=== PATIENT | female | born 1950 | race African-American/Black ===

== ENCOUNTER → 2016-05-15 | Outpatient (CLI) | payer MEDICARE, MEDICAID | LOC: WI 14:14 | PROVIDERS: ATTEND Internal Medicine | DX: Z12.31 Encounter for screening mammogram for malignant neoplasm of breast (principal) | CPT/HCPCS: 77067; G0202 ==

== ENCOUNTER 2017-04-12 12:20 | Emergency (ER) | payer MEDICARE, MEDICAID ==
--- NOTE | 2017-04-12 15:12 | ER Document Report ---
ED Medical Screen (RME) - General Chief Complaint: Pain All Over Stated Complaint: BODY PAIN Time Seen by Provider: 04/12/17 14:56 Mode of Arrival: Wheelchair Information source: Patient Notes: Patient is a 66 year old female with a history of CHF and multiple strokes ( affecting right side) is presenting to the emergency department complaining of body aches all over and a chronic dry cough. Patient states her body aches affect her legs, back, arm, legs, and neck. Son who is at bedside states that the patient is also more swollen than normal. Patient denies congestion or fevers. Patient's PCP is Dr. Langston. TRAVEL OUTSIDE OF THE [place] IN LAST 30 DAYS: No - Related Data Allergies/Adverse Reactions: celecoxib [From Celebrex] Allergy (Unknown, Verified 01/25/16 18:17) ibuprofen [From Motrin] Allergy (Unknown, Verified 01/25/16 18:17) Past Medical History - Social History Chew tobacco use (# tins/day): No Frequency of alcohol use: None Drug Abuse: None - Past Medical History Cardiac Medical History: Reports: Hx Congestive Heart Failure, Hx Hypercholesterolemia, Hx Hypertension, Hx Heart Murmur Denies: Hx Atrial Fibrillation, Hx Coronary Artery Disease, Hx Heart Attack Pulmonary Medical History: Denies: Hx Asthma, Hx Bronchitis, Hx COPD, Hx Pneumonia, Hx Tuberculosis Neurological Medical History: Reports: Hx Cerebrovascular Accident - mutliple, PT STATES SHE HAS HAD 25 RODRÍGUEZ.. Denies: Hx Seizures Renal/ Medical History: Denies: Hx End Stage Renal Disease, Hx Kidney Stones, Hx Peritoneal Dialysis GI Medical History: Reports: Hx Gastroesophageal Reflux Disease. Denies: Hx Hiatal Hernia, Hx Pancreatitis, Hx Ulcer Musculoskeltal Medical History: Reports Hx Arthritis, Reports Hx Musculoskeletal Deformity Psychiatric Medical History: Reports: Hx Anxiety, Hx Dementia - Multi-infarct, Hx Depression Denies: Hx Bipolar Disorder, Hx Schizophrenia Past Surgical History: Reports: Hx Tubal Ligation. Denies: Hx Appendectomy, Hx Bowel Surgery, Hx Section, Hx Cholecystectomy, Hx Hysterectomy, Hx Mastectomy, Hx Tonsillectomy - Immunizations Immunizations up to date: Yes Hx Diphtheria, Pertussis, Tetanus Vaccination: Yes - STATES SHE HAS PNEUMONIA VACCINE IN 2013. Physical Exam - Vital signs Vitals: Temp Pulse Resp BP Pulse Ox 97.6 F 55 L 16 101/69 95 04/12/17 13:06 04/12/17 13:06 04/12/17 13:06 04/12/17 13:06 04/12/17 13:06 - Notes Notes: GENERAL: Alert, weak appearing.. No acute distress. LUNGS: Clear to auscultation bilaterally, no wheezes, rales, or rhonchi. No respiratory distress. HEART: Regular rate and rhythm. No murmurs, gallops, or rubs. ABDOMEN: Soft, non-tender. Non-distended. Bowel sounds present in all 4 quadrants.GENERAL: Alert, interacts well. No acute distress. HEAD: Normocephalic, atraumatic. EYES: Appear normal. Pupils equal, round, and reactive to light. ENT: Dry mucus membranes, tongue midline. NECK: Full range of motion. Supple. Trachea midline. LUNGS: Clear to auscultation bilaterally, no wheezes, rales, or rhonchi. No respiratory distress. HEART: Regular rate and rhythm. No murmurs, gallops, or rubs. ABDOMEN: Soft, non-tender. Non-distended. Normal bowel sounds. EXTREMITIES: Stasis dermatits BLE. 1+ pitting edema. NEUROLOGICAL: Alert and oriented x3. Normal speech. PSYCH: Normal affect, normal mood. SKIN: Warm, dry, normal turgor. No rashes or lesions noted. Course - Vital Signs Vital signs: Temp Pulse Resp BP Pulse Ox 97.6 F 55 L 17 141/102 H 100 04/12/17 13:06 04/12/17 13:06 04/12/17 19:41 04/12/17 19:41 04/12/17 19:41 - Laboratory Result Diagrams: 04/12/17 16:56 04/12/17 16:56 Laboratory results interpreted by me: 04/12/17 04/12/17 16:56 16:56 RDW 15.4 H Creatinine 1.27 H Est GFR ( Amer) 51 L Est GFR (Non-Af Amer) 42 L Glucose 133 H Calcium 10.4 H Total Protein 8.4 H Doctor's Discharge - Discharge Clinical Impression: Myalgia, Hypertension Condition: Stable Disposition: HOME, SELF-CARE Additional Instructions: Please take acetaminophen up to 1000 mg every 6 hours as needed for pain. You may use the Tessalon Perles for cough. If you have no improvement in your symptoms by Sunday please see your primary care physician. Prescriptions: Benzonatate [Tessalon Perles 100 mg Capsule] 100 mg PO Q8HP PRN #40 capsule PRN Reason: Forms: Elevated Blood Pressure Referrals: JUDY GONGORA MD [Primary Care Provider] - Follow up in 3-5 days
--- NOTE | 2017-04-12 16:09 | RADIOLOGY REPORT (SQ) ---
EXAM DESCRIPTION: CHEST SINGLE VIEW COMPLETED DATE/TIME: 04/12/2017 4:02 pm REASON FOR STUDY: CHF hx of non-productive cough COMPARISON: 12/13/2015. EXAM PARAMETERS: NUMBER OF VIEWS: One view. TECHNIQUE: Single frontal radiographic view of the chest acquired. RADIATION DOSE: NA LIMITATIONS: None. FINDINGS: LUNGS AND PLEURA: No opacities, masses or pneumothorax. No pleural effusion. MEDIASTINUM AND HILAR STRUCTURES: No masses. Contour normal. HEART AND VASCULAR STRUCTURES: Heart upper limits of normal in size. Normal vasculature. BONES: No acute findings. HARDWARE: None in the chest. OTHER: No other significant finding. IMPRESSION: NO ACUTE RADIOGRAPHIC FINDING IN THE CHEST. TECHNICAL DOCUMENTATION: JOB ID: [id number] [employer]- All Rights Reserved
[2017-04-12 17:38] LABS: PROTHROMBIN TIME 12.8 SEC (11.4-15.4)
[2017-04-12 17:45] LABS: ABSOLUTE BASOPHILS # (AUTO) 0.1 10^3/uL (0.0-0.2); ABSOLUTE EOSINOPHILS # (AUTO) 0.1 10^3/uL (0.0-0.6); ABSOLUTE LYMPHOCYTES (AUTO) 2.2 10^3/uL (0.5-4.7); ABSOLUTE MONOCYTES (AUTO) 0.5 10^3/uL (0.1-1.4); ABSOLUTE NEUT (AUTO) 5.4 10^3/uL (1.7-8.2); BASOPHILS % (AUTO) 0.7 % (0-2); EOSINOPHILS % (AUTO) 1.1 % (0-6); HEMATOCRIT 43.1 % (36.0-47.0); HEMOGLOBIN 14.1 g/dL (12.0-15.5); LYMPHOCYTES % (AUTO) 26.5 % (13-45); MEAN CORPUSCULAR HEMOGLOBIN 30.2 pg (27.0-33.4); MEAN CORPUSCULAR HGB CONC 32.7 g/dL (32.0-36.0); MEAN CORPUSCULAR VOLUME 92 fl (80-97); PLATELET COUNT 253 10^3/uL (150-450); RED BLOOD COUNT 4.67 10^6/uL (3.72-5.28); RED CELL DISTRIBUTION WIDTH 15.4 % (11.5-14.0); SEGMENTED NEUTROPHILS % (AUTO) 65.7 % (42-78); TOTAL CELLS COUNTED % (AUTO) 100 %; WHITE BLOOD COUNT 8.2 10^3/uL (4.0-10.5)
[2017-04-12 18:16] LABS: ALANINE AMINOTRANSFERASE 18 U/L (9-52); ALBUMIN 4.7 g/dL (3.5-5.0); ALKALINE PHOSPHATASE 66 U/L (38-126); ANION GAP 12 (5-19); ASPARTATE AMINO TRANSFERASE 35 U/L (14-36); BILIRUBIN,DIRECT 0.4 mg/dL (0.0-0.4); BILIRUBIN,TOTAL 0.5 mg/dL (0.2-1.3); BLOOD UREA NITROGEN 16 mg/dL (7-20); CALCIUM 10.4 mg/dL (8.4-10.2); CARBON DIOXIDE 24 mmol/L (22-30); CHLORIDE 106 mmol/L (98-107); GLUCOSE 133 mg/dL (75-110); MAGNESIUM 2.1 mg/dL (1.6-2.3); SODIUM 141.9 mmol/L (137-145); TOTAL PROTEIN 8.4 g/dL (6.3-8.2)
--- NOTE | 2017-04-12 19:45 | ER Document Report ---
ED General - General Mode of Arrival: Wheelchair Information source: Patient TRAVEL OUTSIDE OF THE [place] IN LAST 30 DAYS: No - HPI Patient complains to provider of: Generalized Body ache Onset: This morning - today Associated symptoms: Other - see notes above <MARCUS PRAKASH - Last Filed: 04/13/17 04:10> <EREN HUNG - Last Filed: 04/13/17 04:26> - General Chief Complaint: Pain All Over Stated Complaint: BODY PAIN Time Seen by Provider: 04/12/17 14:56 Notes: 66 year old female with history of hyperlipidemia, CVA, and CHF presents to the ED via EMS complaining of generalized body aches that started today. Patient additionally complains of a non-productive cough that has been present for 1 month and 2-3 episodes of diarrhea a day for the past 3 days which is improving , but still present. Patient denies fever, chest pain, shortness of breath, or vomiting. Patient denies any blood in her stool. Patient also reports feeling more swollen than usual. Patient is not on Lasix. (MARCUS PRAKASH) - Related Data Allergies/Adverse Reactions: celecoxib [From Celebrex] Allergy (Unknown, Verified 01/25/16 18:17) ibuprofen [From Motrin] Allergy (Unknown, Verified 01/25/16 18:17) Past Medical History - General Information source: Patient - Social History Smoking Status: Never Smoker Chew tobacco use (# tins/day): No Frequency of alcohol use: None Drug Abuse: None Family History: Arthritis, CVA, DM, Hyperlipidemia, Hypertension Patient has suicidal ideation: No Patient has homicidal ideation: No - Past Medical History Cardiac Medical History: Reports: Hx Congestive Heart Failure, Hx Hypercholesterolemia, Hx Hypertension, Hx Heart Murmur Denies: Hx Atrial Fibrillation, Hx Coronary Artery Disease, Hx Heart Attack Pulmonary Medical History: Denies: Hx Asthma, Hx Bronchitis, Hx COPD, Hx Pneumonia, Hx Tuberculosis Neurological Medical History: Reports: Hx Cerebrovascular Accident - mutliple, PT STATES SHE HAS HAD 25 RODRÍGUEZ.. Denies: Hx Seizures Renal/ Medical History: Denies: Hx End Stage Renal Disease, Hx Kidney Stones, Hx Peritoneal Dialysis GI Medical History: Reports: Hx Gastroesophageal Reflux Disease. Denies: Hx Hiatal Hernia, Hx Pancreatitis, Hx Ulcer Musculoskeltal Medical History: Reports Hx Arthritis, Reports Hx Musculoskeletal Deformity Psychiatric Medical History: Reports: Hx Anxiety, Hx Dementia - Multi-infarct, Hx Depression Denies: Hx Bipolar Disorder, Hx Schizophrenia Past Surgical History: Reports: Hx Tubal Ligation. Denies: Hx Appendectomy, Hx Bowel Surgery, Hx Section, Hx Cholecystectomy, Hx Hysterectomy, Hx Mastectomy, Hx Tonsillectomy - Immunizations Immunizations up to date: Yes Hx Diphtheria, Pertussis, Tetanus Vaccination: Yes - STATES SHE HAS PNEUMONIA VACCINE IN 2013. Hx Pneumococcal Vaccination: 11/17/09 <MARCUS PRAKASH - Last Filed: 04/13/17 04:10> Review of Systems - Review of Systems Constitutional: See HPI, Malaise. denies: Fever EENT: No symptoms reported Cardiovascular: No symptoms reported. denies: Chest pain Respiratory: See HPI, Cough. denies: Short of breath, Sputum Gastrointestinal: See HPI, Diarrhea. denies: Vomiting, Blood streaked bowels, Rectal bleeding Genitourinary: No symptoms reported Female Genitourinary: No symptoms reported Musculoskeletal: No symptoms reported Skin: No symptoms reported Hematologic/Lymphatic: No symptoms reported Neurological/Psychological: No symptoms reported -: Yes All other systems reviewed and negative <MARCUS PRAKASH - Last Filed: 04/13/17 04:10> Physical Exam <MARCUS PRAKASH - Last Filed: 04/13/17 04:10> <EREN HUNG - Last Filed: 04/13/17 04:26> - Vital signs Vitals: Temp Pulse Resp BP Pulse Ox 97.6 F 55 L 16 101/69 95 04/12/17 13:06 04/12/17 13:06 04/12/17 13:06 04/12/17 13:06 04/12/17 13:06 - Notes Notes: GENERAL: Alert, interacts well. No acute distress. HEAD: Normocephalic, atraumatic. Balding. EYES: Pupils equal, round, and reactive to light. Extraocular movements intact. ENT: Oral mucosa moist, tongue midline. NECK: Full range of motion. Supple. Trachea midline. LUNGS: Clear to auscultation bilaterally, no wheezes, rales, or rhonchi. No respiratory distress. HEART: Regular rate and rhythm. No murmurs, gallops, or rubs. ABDOMEN: Soft, non-tender. Non-distended. Bowel sounds present in all 4 quadrants. EXTREMITIES: Moves all 4 extremities spontaneously. No edema, radial and dorsalis pedis pulses 2/4 bilaterally. No cyanosis. Contracture of the right hand. FROM of left hand. NEUROLOGICAL: Alert and oriented x3. Normal speech. PSYCH: Normal affect, normal mood. SKIN: Warm, dry, normal turgor. No rashes or lesions noted. (MARCUS PRAKASH) Course - Laboratory Result Diagrams: 04/12/17 16:56 04/12/17 16:56 <MARCUS PRAKASH - Last Filed: 04/13/17 04:10> - Laboratory Result Diagrams: 04/12/17 16:56 04/12/17 16:56 <EREN HUNG - Last Filed: 04/13/17 04:26> - Re-evaluation Re-evalutation: 04/12/17 20:02 CBC unremarkable, coags negative, CMP shows slightly bumped creatinine at 1.27, proBNP normal, chest x-ray unremarkable, no evidence of CHF. EKG is nonischemic. At present I see no evidence of infection, source of infection or explanation for why the patient has aches all over her body. Patient is recommended to do a trial of Advil and Tylenol, take Tessalon Perles for her dry nonproductive cough that has been going on for over a month without fever or change on chest x -ray. Discharged to home, will follow up with primary care physician Dr. Gongora on Sunday if no improvement. 04/12/17 20:04 After rechecking the allergy list patient will not be given ibuprofen as she is allergic to it. (EREN HUNG) - Vital Signs Vital signs: Temp Pulse Resp BP Pulse Ox 98.4 F 55 L 14 136/94 H 95 04/12/17 21:00 04/12/17 13:06 04/12/17 21:03 04/12/17 21:03 04/12/17 21:03 - Laboratory Laboratory results interpreted by me: 04/12/17 04/12/17 16:56 16:56 RDW 15.4 H Creatinine 1.27 H Est GFR ( Amer) 51 L Est GFR (Non-Af Amer) 42 L Glucose 133 H Calcium 10.4 H Total Protein 8.4 H Discharge <MARCUS PRAKASH - Last Filed: 04/13/17 04:10> <EREN HUNG - Last Filed: 04/13/17 04:26> - Discharge Clinical Impression: Myalgia Hypertension Qualifiers: Hypertension type: essential hypertension Qualified Code(s): I10 - Essential ( primary) hypertension Condition: Stable Disposition: HOME, SELF-CARE Additional Instructions: Please take acetaminophen up to 1000 mg every 6 hours as needed for pain. You may use the Tessalon Perles for cough. If you have no improvement in your symptoms by Sunday please see your primary care physician. Prescriptions: Benzonatate [Tessalon Perles 100 mg Capsule] 100 mg PO Q8HP PRN #40 capsule PRN Reason: Forms: Elevated Blood Pressure Referrals: JUDY GONGORA MD [Primary Care Provider] - Follow up in 3-5 days Scribe Attestation: 04/13/17 04:26 I personally performed the services described in the documentation, reviewed and edited the documentation which was dictated to the scribe in my presence, and it accurately records my words and actions. (EREN HUNG) Scribe Documentation - Scribe Written by Danielle:: Danielle Downing, 04/12/2017 194 acting as scribe for :: Pernell <MARCUS PRAKASH - Last Filed: 04/13/17 04:10>
[2017-04-12] MEDS ORDERED: ACETAMINOPHEN 325 MG TABLET PO ONE (20:03)
[2017-04-12] MEDS ORDERED: BENZONATATE 100 MG CAPSULE PO ONE (20:03)
[2017-04-12 21:16] VITALS: BP 136/94
--- NOTE | 2017-04-13 07:40 | EKG REPORT ---
SEVERITY:- ABNORMAL ECG - SINUS RHYTHM INCOMPLETE LEFT BUNDLE BRANCH BLOCK PROBABLE LEFT VENTRICULAR HYPERTROPHY CONSIDER ANTERIOR INFARCT : Confirmed by: Irene Kowalski MD 13-Apr-2017 07:38:38
== END 2017-04-12 21:08 | disposition home or self-care (01) ==
LOC: ER 12:20
DX: M79.1 Myalgia (principal); I10 Essential (primary) hypertension; E78.5 Hyperlipidemia, unspecified; I50.9 Heart failure, unspecified; R05 Cough; Z86.73 Personal history of transient ischemic attack (TIA), and cerebral infarction without residual deficits
CPT/HCPCS: 93005; 99284; 36415; 83735; 85025; 85610; 80053; 83880; 71045; 93010; A9270 ×2

== ENCOUNTER → 2017-05-16 | Outpatient (CLI) | payer MEDICARE, MEDICAID ==
--- NOTE | 2017-05-21 07:59 | WOMENS IMAGING REPORT ---
EXAM DESCRIPTION: 3D SCREENING MAMMO BILAT COMPLETED DATE/TIME: 05/16/2017 11:16 am REASON FOR STUDY: ROUTINE SCREENING;Z12.31 Z12.31 ENCNTR SCREEN MAMMOGRAM FOR MALIGNANT NEOPLASM OF LISA COMPARISON: 05/15/2016 and 05/27/2009 TECHNIQUE: Standard craniocaudal and mediolateral oblique views of each breast recorded using digita l acquisition and breast tomosynthesis. LIMITATIONS: Poor positioning as patient is in wheelchair. FINDINGS: Findings present which are benign by mammographic criteria. No suspicious masses, calcifi cations or architectural distortion. Read with the assistance of CAD. .[facility] - R2 Cenova Version 1.3 .[facility] - R2 Cenova Version 1.3 .[facility] - R2 Cenova Version 2.4 .[facility] - R2 Cenova Version 2.4 .[facility] - R2 Load Tester Version 9.2 Benign mammographic findings may include one or more of the following: Smooth masses, popcorn/rim/co arse calcifications, asymmetries, post-procedure changes, and lesions with long-standing stability. IMPRESSION: BENIGN MAMMOGRAPHIC FINDINGS. BIRADS 2 BREAST DENSITY: a. The breasts are almost entirely fatty. BIRAD: 2 BENIGN FINDING(S) RECOMMENDATION: RECOMMENDATION: ROUTINE SCREENING COMMENT: The patient has been notified of the results by letter per [place] requirements. Additional no tification policies are in place for contacting patient with suspicious or incomplete findings. Quality ID #[id number]: The [employer] recommends an annual screening mammogram for women aged 40 years or over. This facility utilizes a reminder system to ensure that all patients receive reminder letters, and/or direct phone calls for appointments. This includes reminders for routine scr eening mammograms, diagnostic mammograms, or other Breast Imaging Interventions when appropriate. Th is patient will be placed in the appropriate reminder system. The [employer] (ACR) has developed recommendations for screening MRI of the breast s in certain patient populations, to be used in conjunction with mammography. Breast MRI surveillanc e may be appropriate for women with more than 20% lifetime risk of developing breast cancer as deter mined by genetic testing, significant family history of the disease, or history of mantle radiation f or Hodgkins Disease. ACR Practice Guidelines 2008. DBT Technology DBT is a type of tomographic mammography. With conventional mammography, overlapping breast tissue ma y make lesions difficult to detect, even with good compression. DBT uses an x-ray tube that rotates a round the breast, taking images at different angles. These images are then combined to create thin sl ices of the breast that the radiologist can view as a 3D reconstruction. The [employer] unit can perform full-field digital mammograms (2D imaging); or DBT (3D imaging); or both, in a combination mode that quickly performs both the mammogram and the tomosynthesis scan while the breast is still compressed. PQRS 6045F: Fluoroscopic imaging is not utilized for breast tomosynthesis. TECHNICAL DOCUMENTATION: FINDING NUMBER: (1) ASSESSMENT: (1) JOB ID: [id number] [employer]- All Rights Reserved Reading location - IP/workstation name: [email or web address]
== END ==
LOC: WI 10:40
PROVIDERS: ATTEND Internal Medicine
DX: Z12.31 Encounter for screening mammogram for malignant neoplasm of breast (principal)
CPT/HCPCS: 77063; 77067

== ENCOUNTER 2017-12-06 10:09 | Emergency (ER) | payer MEDICARE, MEDICAID ==
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
--- NOTE | 2017-12-06 11:52 | RADIOLOGY REPORT (SQ) ---
EXAM DESCRIPTION: FOOT LEFT COMPLETE COMPLETED DATE/TIME: 12/06/2017 11:21 am REASON FOR STUDY: Fell and injured left foot and ankle COMPARISON: None. NUMBER OF VIEWS: Three views. TECHNIQUE: AP, lateral and oblique radiographic images acquired of the left foot. LIMITATIONS: Limited examination due to the limited range of motion. FINDINGS: MINERALIZATION: Osteopenia. BONES: Fractures involving the distal tibia and fibula are again identified. Calcaneal spurs. JOINTS: Degenerative changes and hallux valgus deformity at the first metatarsal-phalangeal joint. SOFT TISSUES: Marked soft tissue swelling. No foreign body. OTHER: No other significant finding. IMPRESSION: 1. Soft tissue swelling. 2. Fractures involving the distal tibia and fibula are again identified. TECHNICAL DOCUMENTATION: JOB ID: [id number] [email or web address]- All Rights Reserved Reading location - IP/workstation name: [email or web address]
--- NOTE | 2017-12-06 11:59 | RADIOLOGY REPORT (SQ) ---
EXAM DESCRIPTION: ANKLE LEFT COMPLETE COMPLETED DATE/TIME: 12/06/2017 11:21 am REASON FOR STUDY: pain/ fall COMPARISON: None. NUMBER OF VIEWS: Three views. TECHNIQUE: AP, lateral, and oblique radiographic images acquired of the left ankle. LIMITATIONS: None. FINDINGS: MINERALIZATION: Normal. BONES: Nondisplaced slightly comminuted fracture involving the medial malleolus. Slight to mildly d isplaced intra-articular fracture involving the anterior distal tibia. Minimally displaced fracture involving the distal fibula. JOINTS: Joint effusions. SOFT TISSUES: Soft tissue swelling. No foreign body. OTHER: No other significant finding. IMPRESSION: 1. Minimally displaced distal fibula fracture. 2. Non-displaced medial malleolus fracture. Slight to midly displaced intra-articular fracture invol ving the anterior distal tibia. 3. Soft tissue swelling. COMMENT: 1. The results of this examination were discussed with emergency department provider on at 11:51 hours. TECHNICAL DOCUMENTATION: JOB ID: [id number] [employer]- All Rights Reserved Reading location - IP/workstation name: [email or web address]
[2017-12-06] MEDS ORDERED: OXYCODONE-ACETAMINOPHEN 5-325 MG TABLET PO ONE (12:34)
--- NOTE | 2017-12-06 12:56 | RADIOLOGY REPORT (SQ) ---
EXAM DESCRIPTION: CHEST SINGLE VIEW COMPLETED DATE/TIME: 12/06/2017 12:46 pm REASON FOR STUDY: copd COMPARISON: 04/12/2017 EXAM PARAMETERS: NUMBER OF VIEWS: One view. TECHNIQUE: Single frontal radiographic view of the chest acquired. RADIATION DOSE: NA LIMITATIONS: None. FINDINGS: LUNGS AND PLEURA: Low lung volumes limits the examination. No acute pulmonary consolidat ion. No pneumothorax or pleural effusion. MEDIASTINUM AND HILAR STRUCTURES: No masses. Contour normal. HEART AND VASCULAR STRUCTURES: Cardiomegaly and accentuation of the central pulmonary vasculature ma y be related to the limited degree of inspiration. BONES: No acute findings. HARDWARE: None in the chest. OTHER: No other significant finding. IMPRESSION: 1. Low lung volumes limits the examination. No acute pulmonary consolidation. 2. The cardiomediastinal structures are accentuated which may be related to the limited degree of ins piration. TECHNICAL DOCUMENTATION: JOB ID: [id number] [employer]- All Rights Reserved Reading location - IP/workstation name: [email or web address]
[2017-12-06] MEDS ORDERED: HYDROCODONE/ACETAMINOPHEN 5-325 MG (6 TAB/ER DISP) PO PRN (13:24)
[2017-12-06 17:50] VITALS: BP 111/67
== END 2017-12-06 17:49 | disposition home or self-care (01) ==
LOC: ER 10:09
PROC: 2W3RX1Z Immobilization of Left Lower Leg using Splint (ICD-10-PCS; principal; 2017-12-06)
DX: S82.55XA Nondisplaced fracture of medial malleolus of left tibia, initial encounter for closed fracture (principal); M25.572 Pain in left ankle and joints of left foot; M79.605 Pain in left leg; W01.0XXA Fall on same level from slipping, tripping and stumbling without subsequent striking against object, initial encounter; I10 Essential (primary) hypertension; Z86.73 Personal history of transient ischemic attack (TIA), and cerebral infarction without residual deficits
CPT/HCPCS: 99283; 73610; 71045; 73630; 29515; A9270 ×2

== ENCOUNTER 2017-12-07 21:11 | Inpatient (IN) | payer MEDICARE, MEDICAID ==
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
[2017-12-08] MEDS ORDERED: ALBUTEROL SULFATE 0.083% NEB 2.5 MG/3 ML AMPUL NEB ONE (02:00)
[2017-12-08] MEDS: HYDROCODONE/ACETAMINOPHEN 5-325 MG TABLET PO PRN ×4 (02:45→21:38)
[2017-12-08] MEDS: CLONIDINE HCL 0.2 MG TABLET PO SCH ×2 (09:18→17:49)
[2017-12-08] MEDS: LABETALOL HCL 200 MG TABLET PO SCH ×2 (09:19→17:49)
[2017-12-08] MEDS: ARIPIPRAZOLE 5 MG TABLET PO SCH (09:19)
[2017-12-08] MEDS: AMLODIPINE BESYLATE 10 MG TABLET PO SCH (09:20)
[2017-12-08] MEDS: HYDRALAZINE HCL 50 MG TABLET PO SCH ×3 (09:20→17:49)
[2017-12-08] MEDS: VALSARTAN 160 MG TABLET PO SCH (09:20)
[2017-12-08] MEDS: ESCITALOPRAM OXALATE 10 MG TABLET PO SCH (09:20)
[2017-12-08] MEDS: DOCUSATE SODIUM 100 MG CAPSULE PO SCH (09:21)
[2017-12-08] MEDS: CHLORTHALIDONE 25 MG TABLET PO SCH (09:25)
[2017-12-08] MEDS ORDERED: CLOPIDOGREL BISULFATE 75 MG TABLET PO SCH (10:00)
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
[2017-12-09] MEDS: HYDROCODONE/ACETAMINOPHEN 5-325 MG TABLET PO PRN ×4 (05:40→21:31)
[2017-12-09 06:14] LABS: ABSOLUTE EOSINOPHILS # (AUTO) 0.3 10^3/uL (0.0-0.6); ABSOLUTE LYMPHOCYTES (AUTO) 2.3 10^3/uL (0.5-4.7); ABSOLUTE MONOCYTES (AUTO) 0.6 10^3/uL (0.1-1.4); ABSOLUTE NEUT (AUTO) 2.5 10^3/uL (1.7-8.2); BASOPHILS % (AUTO) 0.3 % (0-2); EOSINOPHILS % (AUTO) 4.6 % (0-6); HEMATOCRIT 33.4 % (36.0-47.0); HEMOGLOBIN 10.9 g/dL (12.0-15.5); MEAN CORPUSCULAR HEMOGLOBIN 29.7 pg (27.0-33.4); MEAN CORPUSCULAR HGB CONC 32.6 g/dL (32.0-36.0); MEAN CORPUSCULAR VOLUME 91 fl (80-97); MONOCYTES % (AUTO) 9.7 % (3-13); PLATELET COUNT 182 10^3/uL (150-450); RED BLOOD COUNT 3.67 10^6/uL (3.72-5.28); RED CELL DISTRIBUTION WIDTH 14.5 % (11.5-14.0); SEGMENTED NEUTROPHILS % (AUTO) 44.4 % (42-78); TOTAL CELLS COUNTED % (AUTO) 100 %; WHITE BLOOD COUNT 5.7 10^3/uL (4.0-10.5)
[2017-12-09 06:26] LABS: INTERNATIONAL RATION (INR) 1.03
[2017-12-09 06:37] LABS: ANION GAP 8 (5-19); BLOOD UREA NITROGEN 38 mg/dL (7-20); CALCIUM 8.8 mg/dL (8.4-10.2); CARBON DIOXIDE 27 mmol/L (22-30); CHLORIDE 108 mmol/L (98-107); POTASSIUM 3.7 mmol/L (3.6-5.0); SODIUM 142.5 mmol/L (137-145)
[2017-12-09 06:54] LABS: GLUCOSE 102 mg/dL (75-110)
--- NOTE | 2017-12-09 08:23 | RADIOLOGY REPORT (SQ) ---
EXAM DESCRIPTION: CHEST SINGLE VIEW COMPLETED DATE/TIME: 12/09/2017 7:55 am REASON FOR STUDY: pre-op COMPARISON: 12/06/2017. EXAM PARAMETERS: NUMBER OF VIEWS: One view. TECHNIQUE: Single frontal radiographic view of the chest acquired. RADIATION DOSE: NA LIMITATIONS: None. FINDINGS: LUNGS AND PLEURA: No opacities, masses or pneumothorax. No pleural effusion. MEDIASTINUM AND HILAR STRUCTURES: No masses. Contour normal. HEART AND VASCULAR STRUCTURES: Heart normal in size. Normal vasculature. BONES: No acute findings. HARDWARE: None in the chest. OTHER: No other significant finding. IMPRESSION: NO ACUTE RADIOGRAPHIC FINDING IN THE CHEST. TECHNICAL DOCUMENTATION: JOB ID: [id number] [employer]- All Rights Reserved Reading location - IP/workstation name: [email or web address]
[2017-12-09] MEDS: ARIPIPRAZOLE 5 MG TABLET PO SCH (09:52)
[2017-12-09] MEDS: DOCUSATE SODIUM 100 MG CAPSULE PO SCH (09:52)
[2017-12-09] MEDS: VALSARTAN 160 MG TABLET PO SCH (09:52)
[2017-12-09] MEDS: ESCITALOPRAM OXALATE 10 MG TABLET PO SCH (09:53)
[2017-12-09] MEDS: AMLODIPINE BESYLATE 10 MG TABLET PO SCH (09:53)
[2017-12-09] MEDS: CHLORTHALIDONE 25 MG TABLET PO SCH (09:53)
[2017-12-09] MEDS: CLONIDINE HCL 0.2 MG TABLET PO SCH ×2 (09:53→17:34)
[2017-12-09] MEDS: LABETALOL HCL 200 MG TABLET PO SCH ×2 (09:53→21:14)
[2017-12-09] MEDS: HYDRALAZINE HCL 50 MG TABLET PO SCH ×3 (09:53→17:34)
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
--- NOTE | 2017-12-09 12:00 | PDOC PROGRESS REPORT ---
Subjective Progress Note for:: 12/09/17 Subjective:: Patient with left ankle fracture, currently awaiting surgery. EKG reviewed showed no significant ST-T wave changes and shows sinus rhythm. Chest x-ray reviewed shows borderline cardiomegaly but no CHF. 2D echo pending. Patient seems to be doing better with gradual improvement. Pt is denying any chest arm or neck discomfort. Patient denying any PND, orthopnea. Patient denied any sustained palpitations, dizziness, syncope, near syncope. Patient denying any fever chills. Patient denying any other significant discomfort. Patient is maintaining sinus rhythm. Review of systems: Rest review of systems negative. Medications: Medications have been reviewed. Reason For Visit: L ANKLE FRACTURE Physical Exam Vital Signs: Temp Pulse Resp BP Pulse Ox 98.0 F 62 18 139/78 H 99 12/09/17 07:18 12/09/17 07:18 12/09/17 07:18 12/09/17 07:18 12/09/17 07:18 Intake & Output 12/08/17 12/09/17 12/10/17 06:59 06:59 06:59 Intake Total 750 Output Total 0 1 Balance 0 749 Weight 135.3 kg 133 kg Exam: GENERAL: well-nourished and in no acute distress. Alert and oriented x3 HEAD: Atraumatic, normocephalic. EYES: Pupils equal round and reactive to light, extraocular movements intact, sclera anicteric, conjunctiva are normal. ENT: TMs normal, nares patent, oropharynx clear without exudates. Moist mucous membranes. No oral ulcerations or bleeding gums noted NECK: supple without lymphadenopathy. Trachea is central. No cervical or axillary lymphadenopathy noted. Carotids are 2+, JVD WNL LUNGS: Respiration seems nonlabored, no significant accessory muscle action noted. Breath sounds clear to auscultation bilaterally and equal noted. No wheezes rales or rhonchi noted. No significant dullness noted on percussion. CHEST: Palpation of the chest wall shows no significant chest wall tenderness. 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 ABDOMEN: Soft, no significant tenderness appreciated, normoactive bowel sounds. No guarding, no rebound. No rigidity noted . No masses appreciated. EXTREMITIES: Pedal pulses are 1-2+, no calf tenderness noted. No clubbing or cyanosis. negative pedal edema noted NEUROLOGICAL: Shows right-sided weakness, facial asymmetry with flattening of right side face, speech is relatively well-preserved. PSYCH: Normal mood, normal affect. Judgment and insight within normal limits. SKIN: No significant ecchymosis, skin is noted to be warm. MUSCULOSKELETAL EXAM: No significant acute joint swelling noted. Left ankle fracture findings noted which is covered entraps. Results Laboratory Results: 12/09/17 05:39 12/09/17 05:39 12/09/17 12/09/17 05:39 05:39 WBC 5.7 RBC 3.67 L Hgb 10.9 L Hct 33.4 L MCV 91 MCH 29.7 MCHC 32.6 RDW 14.5 H Plt Count 182 Seg Neutrophils % 44.4 Lymphocytes % 41.0 Monocytes % 9.7 Eosinophils % 4.6 Basophils % 0.3 Absolute Neutrophils 2.5 Absolute Lymphocytes 2.3 Absolute Monocytes 0.6 Absolute Eosinophils 0.3 Absolute Basophils 0.0 Sodium 142.5 Potassium 3.7 Chloride 108 H Carbon Dioxide 27 Anion Gap 8 BUN 38 H Creatinine 1.20 Est GFR ( Amer) 55 L Est GFR (Non-Af Amer) 45 L Glucose 102 Calcium 8.8 EKG Comments: Twelve-lead EKG shows sinus rhythm. No acute ST-T wave changes are noted. Impressions: Chest X-Ray 12/09/17 00:00 IMPRESSION: NO ACUTE RADIOGRAPHIC FINDING IN THE CHEST. Assessment & Plan - Diagnosis (1) Preoperative cardiovascular examination Is this a current diagnosis for this admission?: Yes (2) Bimalleolar fracture of left ankle Qualifiers: Encounter type: initial encounter Fracture type: closed Qualified Code(s) : S82.842A - Displaced bimalleolar fracture of left lower leg, initial encounter for closed fracture Is this a current diagnosis for this admission?: Yes (3) History of CVA (cerebrovascular accident) Is this a current diagnosis for this admission?: Yes (4) Edema extremities Is this a current diagnosis for this admission?: Yes (5) Hypertension Qualifiers: Hypertension type: essential hypertension Qualified Code(s): I10 - Essential (primary) hypertension Is this a current diagnosis for this admission?: Yes (6) Hyperlipidemia Qualifiers: Hyperlipidemia type: unspecified Qualified Code(s): E78.5 - Hyperlipidemia , unspecified Is this a current diagnosis for this admission?: Yes (7) Dysthymia Is this a current diagnosis for this admission?: Yes - Notes Notes: Pre op cardiovascular examination: Patient cleared from cardiac standpoint. Patient has history of cerebrovascular accident therefore may have underlying CAD. Patient does give history of CHF. At this point will obtain a 2D echo, as this will help in managing any periop complications. Patient does need ankle surgery therefore cleared for surgery. Will be happy to take care of any postop cardiac issues as it arises. Currently patient seems reasonably stable from cardiac standpoint without any symptoms of angina, ongoing CHF or cardiac dysrhythmia. Hypertension: Recommend resume home antihypertensive. Dyslipidemia: Resume Crestor therapy or replace with Lipitor 40 mg p.o. nightly. Edema: Most likely venous insufficiency and dependency rather than CHF. Dysthymia: Resume mood stabilizers. History of cerebrovascular accident: Currently stable without any recurrences. Preop EKG and postop EKG ordered presuming that surgery was performed on tomorrow.
[2017-12-09] MEDS ORDERED: GLUCAGON,HUMAN RECOMB 1 MG INJ SUBCUT PRN (12:21)
[2017-12-09] MEDS ORDERED: DEXTROSE 50%-WATER 25 GM/50 ML DISP.SYRIN IV PRN ×2 (12:21)
[2017-12-09] MEDS ORDERED: DEXTROSE 40% GEL 15 GM TUBE PO PRN ×2 (12:21)
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
--- NOTE | 2017-12-09 13:14 | XCELERA REPORT ---
[address] [address] Transthoracic Echocardiogram Report Name: KOKO EWING Age: 67 yrs Gender: Female : 1950 Patient Status: Inpatient Patient Location: [address] [place] [address] Study Date: 12/09/2017 10:41 AM Height: 63 in Weight: 298 lb BSA: 2.3 m2 Procedure: A complete two-dimensional transthoracic echocardiogram was performed (2D, M-mode, spectral and color flow Doppler). The study was technically difficult with many images being suboptimal in quality. Reason For Study: pre op cardiac clearance Ordering Physician: COLTON TRACY Performed By: Favian Winn Interpretation Summary The left ventricular ejection fraction is normal. There is mild concentric left ventricular hypertrophy. The left ventricle is grossly normal size. Doppler measurements suggest pseudonormalized left ventricular relaxation, which is associated with grade II/IV or mild to moderate diastolic dysfunction Wall motion cannot be accurately commented on, but no definite regional wall motion abnormalities noted. The right ventricular systolic function is normal. The left atrium is mildly dilated. The right atrium is normal in size There is a mild amount of mitral regurgitation There is no mitral valve stenosis. There is no aortic valve stenosis No aortic regurgitation is present. There is a trace or physiologic amount of tricuspid regurgitation Tricuspid regurgitation jet envelope not well defined to measure RV systolic pressure accurately. The aortic root is not well visualized. The inferior vena cava appeared normal and decreased > 50% with respiration (RAP 5-10 mmHg) Minimal pericardial effusion. MMode/2D Measurements & Calculations RVDd: 3.2 cm LVIDd: 4.8 cm FS: 38.5 % Ao root diam: 3.4 cm IVSd: 1.3 cm LVIDs: 3.0 cm EDV(Teich): 107.9 ml Ao root area: 8.8 cm2 LVPWd: 1.3 cm ESV(Teich): 33.8 ml LA dimension: 3.8 cm EF(Teich): 68.6 % LVOT diam: 2.1 cm LVOT area: 3.6 cm2 Doppler Measurements & Calculations MV E max tutu: MV P1/2t max tutu: Ao V2 max: LV V1 max P.3 cm/sec 86.9 cm/sec 122.7 cm/sec 6.6 mmHg MV A max tutu: MV P1/2t: 62.9 msec Ao max P.1 mmHgLV V1 max: 107.1 cm/sec MVA(P1/2t): 3.5 cm2 CORY(V,D): 3.8 cm2 128.3 cm/sec MV E/A: 0.88 MV dec slope: 404.5 cm/sec2 MV dec time: 0.21 sec PA V2 max: TR max tutu: MV P1/2t-pr_phl: 98.7 cm/sec 263.9 cm/sec 62.9 msec PA max P.9 mmHgTR max P.9 mmHg Left Ventricle The left ventricle is grossly normal size. There is mild concentric left ventricular hypertrophy. The left ventricular ejection fraction is normal. Doppler measurements suggest pseudonormalized left ventricular relaxation, which is associated with grade II/IV or mild to moderate diastolic dysfunction. Wall motion cannot be accurately commented on, but no definite regional wall motion abnormalities noted. Right Ventricle The right ventricle is grossly normal size. There is normal right ventricular wall thickness. The right ventricular systolic function is normal. Atria The right atrium is normal in size. The left atrium is mildly dilated. Interarterial septum not well visualized and not well dopplered. Cannot comment on ASD/PFO presence. Mitral Valve The mitral valve is not well visualized. There is no mitral valve stenosis. There is a mild amount of mitral regurgitation. Aortic Valve The aortic valve is not well visualized secondary to technical limitations. There is no aortic valve stenosis. No aortic regurgitation is present. Tricuspid Valve The tricuspid valve is not well visualized secondary to technical limitations. There is no tricuspid stenosis. There is a trace or physiologic amount of tricuspid regurgitation. Tricuspid regurgitation jet envelope not well defined to measure RV systolic pressure accurately. Pulmonic Valve The pulmonic valve is not well visualized. Great Vessels The aortic root is not well visualized. The inferior vena cava appeared normal and decreased > 50% with respiration (RAP 5-10 mmHg). Effusions Minimal pericardial effusion. : COLTON TRACY > Colton Tracy
--- NOTE | 2017-12-09 14:32 | EKG REPORT ---
SEVERITY:- ABNORMAL ECG - ATRIAL FIBRILLATION INCOMPLETE LEFT BUNDLE BRANCH BLOCK PROBABLE LEFT VENTRICULAR HYPERTROPHY : Confirmed by: Irene Kowalski MD 09-Dec-2017 14:31:28
[2017-12-09] MEDS: ATORVASTATIN CALCIUM 40 MG TABLET PO SCH (21:14)
[2017-12-10] MEDS ORDERED: RINGERS SOLUTION,LACTATED 1,000 ML IV PRN (06:44)
[2017-12-10] MEDS ORDERED: CEFAZOLIN 2 GM/D5W RTU 2 GM/50 ML RTUPB IV PRN (06:44)
[2017-12-10] MEDS ORDERED: ROCURONIUM BROMIDE INJ 50 MG/5 ML VIAL IV ONE (08:07)
[2017-12-10] MEDS ORDERED: SUCCINYLCHOLINE CHLORIDE INJ 200 MG/10 ML VIAL ONE (08:07)
[2017-12-10] MEDS ORDERED: ONDANSETRON HCL INJ/PF 4 MG/2 ML SDV ONE (08:07)
[2017-12-10] MEDS ORDERED: GLYCOPYRROLATE 1 MG/5 ML SYRINGE ONE (08:07)
[2017-12-10] MEDS ORDERED: DEXAMETHASONE SOD PHOSPHATE INJ 4 MG/1 ML VIAL ONE (08:07)
--- NOTE | 2017-12-10 08:07 | Physician Advisory Note ---
Physician Advisor ProgressNote .: [facility], I have reviewed the medical record for this patient. Physician Advisor Statement: Nice documentation of Rt dominant hemiplegia, & multi-infarct dementia. Please consider documenting, in each note, if you agree: 1. "chronic diastolic CHF" 2. "obesity w/BMI 52.4" 3. Medical necessity: any clinical reason(s) pt couldn't have surgery on 12/09 (?needed to be off Plavix a certain amt of time, or ...), & any clinical reasons to keep pt in hospital 12/10 PM post-op (what concerned about, ...). Status points: 67yo Medicare pt w/morbid obesity, Rt dom hemiplegia, multi- infarct dementia, chronic diastolic CHF, HTN, HLD, anemia, underlying BLE edema possibly from venous insufficiency, w/acute ankle fx that needs surgery due to incongruity of the joint, currently NPO for surgery, with IVF now going at 150ml /hr. - Increased risks for acute diastolic CHF exac, acute ND, acute delirium due to acute metabolic encephalopathy (from ___) on top of baseline dementia ( specifying what findings are different from baseline dementia), excessive bleeding/anemia of acute blood loss, etc. Thanks! CK
--- NOTE | 2017-12-10 08:47 | EKG REPORT ---
SEVERITY:- ABNORMAL ECG - SINUS RHYTHM INCOMPLETE LEFT BUNDLE BRANCH BLOCK : Confirmed by: Colton Nina 10-Dec-2017 08:47:05
[2017-12-10] MEDS: ARIPIPRAZOLE 5 MG TABLET PO SCH (09:26)
[2017-12-10] MEDS: CHLORTHALIDONE 25 MG TABLET PO SCH (09:26)
[2017-12-10] MEDS: VALSARTAN 160 MG TABLET PO SCH (09:26)
[2017-12-10] MEDS: AMLODIPINE BESYLATE 10 MG TABLET PO SCH (09:26)
[2017-12-10] MEDS: LABETALOL HCL 200 MG TABLET PO SCH ×2 (09:26→22:31)
[2017-12-10] MEDS: ESCITALOPRAM OXALATE 10 MG TABLET PO SCH (09:26)
[2017-12-10] MEDS: CLONIDINE HCL 0.2 MG TABLET PO SCH ×2 (09:26→17:09)
[2017-12-10] MEDS: HYDRALAZINE HCL 50 MG TABLET PO SCH ×4 (09:27→22:30)
[2017-12-10] MEDS: DOCUSATE SODIUM 100 MG CAPSULE PO SCH (09:27)
[2017-12-10] MEDS ORDERED: BUPIVACAINE HCL/DEX-WATER/PF 15 MG/2 ML AMPULE ONE (10:45)
[2017-12-10] MEDS ORDERED: PROPOFOL INJ 200 MG/20 ML VIAL IV ONE (13:29)
[2017-12-10] MEDS ORDERED: FENTANYL CITRATE INJ/PF 100 MCG/2 ML AMPUL ONE (13:29)
[2017-12-10] MEDS ORDERED: MIDAZOLAM 2 MG/2 ML INJ ONE (13:29)
[2017-12-10] MEDS ORDERED: CEFAZOLIN INJ 1 GM VIAL ONE (13:32)
--- NOTE | 2017-12-10 15:16 | Operative Report ---
Operative Report DATE OF SURGERY: 12/10/17 PREOPERATIVE DIAGNOSIS: Left bimalleolar ankle fracture OPERATION: Open reduction internal fixation left bimalleolar ankle fracture SURGEON: MITCHELL ZELAYA ANESTHESIA: GA ESTIMATED BLOOD LOSS: 150 PROCEDURE: With the patient supine on the operating table left lower extremities prepped and draped in sterile fashion. Limb was elevated for exsanguination. Tourniquet inflated to 280 torr. A longitudinal incision was made over the lateral surface of the distal lateral malleolus and sharp dissection was carried incision down through the sub-periosteum. Subperiosteal was elevated. The fracture was identified. Its anatomically reduced using a lobster claw clamp. A Shen titanium distal fibula plate is placed across the fracture and 3 screws were secured proximally and 5 secured with screws distally. The fracture reduction and hardware placement checked fluoroscopically. Next a longitudinal incision was made over the medial malleolus. The medial malleolar fragment is identified following periosteal elevation. Its reduced anatomically. It secured in place using 2 x 4 mm x 70 mm screws. At this point the wound is irrigated. The tourniquet deflated. Hemostasis obtained with electrocautery. The wounds closed in layers interrupted Vicryl followed by nylon. A sterile compressive dressing posterior plaster splint were applied and the patient's return to PACU in satisfactory condition.
[2017-12-10] MEDS ORDERED: MORPHINE SULFATE 10 MG/ML INJ IV PRN ×2 (15:34→15:51)
--- NOTE | 2017-12-10 15:41 | RADIOLOGY REPORT (SQ) ---
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 FLUOROSCOPY TIME: 0.4 minutes 3 images saved to PACS. TECHNIQUE: Intra-operative images acquired during surgical procedure to evaluate progress. NUMBER OF IMAGES: 3 LIMITATIONS: None. FINDINGS: Selected images from cancellous screw fixation of medial malleolar fracture. Plate and sc rew fixation lateral malleolar fracture. Alignment is anatomic. IMPRESSION: IMAGE(S) OBTAINED DURING PROCEDURE. COMMENT: Quality ID 145: Final reports for procedures using fluoroscopy that document radiation exp osure indices, or exposure time and number of fluorographic images (if radiation exposure indices are not available) Please consult full operative report of the attending physician for description of the procedure. TECHNICAL DOCUMENTATION: JOB ID: [id number] [employer]- All Rights Reserved Reading location - IP/workstation name: [email or web address]
--- NOTE | 2017-12-10 15:41 | RADIOLOGY REPORT (SQ) ---
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 FLUOROSCOPY TIME: 0.4 minutes 3 images saved to PACS. TECHNIQUE: Intra-operative images acquired during surgical procedure to evaluate progress. NUMBER OF IMAGES: 3 LIMITATIONS: None. FINDINGS: Selected images from cancellous screw fixation of medial malleolar fracture. Plate and sc rew fixation lateral malleolar fracture. Alignment is anatomic. IMPRESSION: IMAGE(S) OBTAINED DURING PROCEDURE. COMMENT: Quality ID 145: Final reports for procedures using fluoroscopy that document radiation exp osure indices, or exposure time and number of fluorographic images (if radiation exposure indices are not available) Please consult full operative report of the attending physician for description of the procedure. TECHNICAL DOCUMENTATION: JOB ID: [id number] [employer]- All Rights Reserved Reading location - IP/workstation name: [email or web address]
[2017-12-10] MEDS ORDERED: OXYCODONE-ACETAMINOPHEN 5-325 MG TABLET PO PRN ×2 (15:51)
[2017-12-10] MEDS ORDERED: PROMETHAZINE HCL INJ 25 MG/1 ML VIAL IV PRN ×2 (15:51)
[2017-12-10] MEDS ORDERED: FENTANYL CITRATE INJ/PF 100 MCG/2 ML AMPUL IV PRN ×3 (15:51)
[2017-12-10] MEDS ORDERED: DIPHENHYDRAMINE HCL 50 MG/ML VIAL IV PRN (15:51)
[2017-12-10] MEDS: OXYCODONE HCL IR 5 MG TABLET PO PRN (17:10)
[2017-12-10] MEDS ORDERED: ALBUTEROL SULFATE HFA (90 MCG/PUFF) 8 GM MDI (1 MDI/ER DISP) IH PRN (20:48)
--- NOTE | 2017-12-10 20:48 | PDOC PROGRESS REPORT ---
Subjective Progress Note for:: 12/10/17 Subjective:: She had ORIF of the left ankle today, she was seen by the bedside Reason For Visit: L ANKLE FRACTURE Physical Exam Vital Signs: Temp Pulse Resp BP Pulse Ox 97.6 F 64 16 145/76 H 94 12/10/17 16:25 12/10/17 16:25 12/10/17 16:25 12/10/17 16:25 12/10/17 16:25 Intake & Output 12/09/17 12/10/17 12/11/17 06:59 06:59 06:59 Intake Total 200 Balance 200 General appearance: PRESENT: no acute distress Eye exam: PRESENT: PERRLA Respiratory exam: PRESENT: clear to auscultation audelia Cardiovascular exam: PRESENT: +S1, +S2 GI/Abdominal exam: PRESENT: soft Neurological exam: PRESENT: alert, motor sensory deficit - Right-sided paralysis Results Impressions: Chest X-Ray 12/09/17 00:00 IMPRESSION: NO ACUTE RADIOGRAPHIC FINDING IN THE CHEST. Ankle X-Ray 12/10/17 00:00 IMPRESSION: IMAGE(S) OBTAINED DURING PROCEDURE. Fluoroscopy 12/10/17 00:00 IMPRESSION: IMAGE(S) OBTAINED DURING PROCEDURE. Assessment & Plan - Diagnosis (1) Fracture of left ankle Qualifiers: Encounter type: initial encounter Fracture type: closed Qualified Code(s) : S82.892A - Other fracture of left lower leg, initial encounter for closed fracture Is this a current diagnosis for this admission?: Yes (2) Hemiplegia affecting dominant side Is this a current diagnosis for this admission?: Yes (3) Chronic diastolic (congestive) heart failure Is this a current diagnosis for this admission?: Yes (4) Hypertension Qualifiers: Hypertension type: essential hypertension Qualified Code(s): I10 - Essential (primary) hypertension Is this a current diagnosis for this admission?: Yes (5) Morbid (severe) obesity due to excess calories Is this a current diagnosis for this admission?: Yes
[2017-12-10] MEDS ORDERED: ARIPIPRAZOLE 15 MG PO SCH (21:00)
[2017-12-10] MEDS ORDERED: VALSARTAN PO SCH (21:00)
[2017-12-10] MEDS ORDERED: AMLODIPINE PO SCH (21:00)
[2017-12-10] MEDS ORDERED: CHLORTHALIDONE 50 MG PO SCH (21:00)
[2017-12-10] MEDS ORDERED: ESCITALOPRAM OXALATE 10 MG TABLET PO SCH (22:00)
[2017-12-10] MEDS ORDERED: LABETALOL HCL 200 MG TABLET PO SCH (22:00)
[2017-12-10] MEDS ORDERED: (PENDING PHARMACY ID) (Clonidine Hcl [Catapres 0.3 Mg Tablet] 0.3 MG) PO SCH (22:00)
[2017-12-10] MEDS ORDERED: (PENDING PHARMACY ID) (Rosuvastatin Calcium [Crestor 20 Mg Tablet] 20 MG) PO SCH (22:00)
[2017-12-10] MEDS ORDERED: ATORVASTATIN CALCIUM 40 MG TABLET PO ONE (22:25)
[2017-12-10] MEDS ORDERED: CLONIDINE HCL 0.1 MG TABLET PO ONE (22:25)
[2017-12-10] MEDS: GABAPENTIN 300 MG CAPSULE PO SCH (22:29)
[2017-12-10] MEDS: CLOPIDOGREL BISULFATE 75 MG TABLET PO SCH (22:33)
[2017-12-10] MEDS: NYSTATIN TOPICAL POWDER 15 GM TOP SCH (22:35)
[2017-12-10] MEDS: HYDROCODONE/ACETAMINOPHEN 10-325 MG TABLET PO PRN (22:37)
[2017-12-10] MEDS: ATORVASTATIN CALCIUM 40 MG TABLET PO SCH (23:05)
[2017-12-10] MEDS ORDERED: CEFAZOLIN 1 GM/D5W RTU 4 GM/200 ML RTUPB IV ONE (23:24)
[2017-12-11] MEDS: GABAPENTIN 300 MG CAPSULE PO SCH ×3 (05:19→22:16)
[2017-12-11] MEDS: NYSTATIN TOPICAL POWDER 15 GM TOP SCH ×3 (05:19→22:16)
[2017-12-11] MEDS: HYDRALAZINE HCL 50 MG TABLET PO SCH ×3 (05:19→22:16)
[2017-12-11] MEDS: CEFAZOLIN 2 GM/D5W RTU 2 GM/50 ML RTUPB IV SCH ×2 (05:33)
--- NOTE | 2017-12-11 06:32 | PDOC PROGRESS REPORT ---
Subjective Progress Note for:: 12/11/17 Reason For Visit: L ANKLE FRACTURE 67-year-old female postop day 1 from an open reduction internal fixation of a left ankle fracture. Patient with no new complaints overnight. Physical Exam Vital Signs: Temp Pulse Resp BP Pulse Ox 36.7 C 56 L 16 134/71 H 99 12/11/17 03:40 12/11/17 03:40 12/11/17 03:40 12/11/17 03:40 12/11/17 03:40 Intake & Output 12/09/17 12/10/17 12/11/17 06:59 06:59 06:59 Intake Total 625 Balance 625 Weight 133.5 kg General appearance: PRESENT: no acute distress, mild distress, obese Head exam: PRESENT: normocephalic Respiratory exam: PRESENT: unlabored Vascular exam: PRESENT: normal capillary refill Extremities exam: PRESENT: other - Left lower extremity dressing is clean dry and intact. Brisk capillary refill to the digits. Results Impressions: Chest X-Ray 12/09/17 00:00 IMPRESSION: NO ACUTE RADIOGRAPHIC FINDING IN THE CHEST. Ankle X-Ray 12/10/17 00:00 IMPRESSION: IMAGE(S) OBTAINED DURING PROCEDURE. Fluoroscopy 12/10/17 00:00 IMPRESSION: IMAGE(S) OBTAINED DURING PROCEDURE. Status: Imported from PACS Assessment & Plan - Diagnosis (1) Bimalleolar fracture of left ankle Qualifiers: Encounter type: initial encounter Fracture type: closed Qualified Code(s) : S82.842A - Displaced bimalleolar fracture of left lower leg, initial encounter for closed fracture Is this a current diagnosis for this admission?: Yes Plan: Patient to be mobilized with physical therapy on a nonweightbearing restriction on the left lower extremity. Anticipate the need for [facility] facility [facility]. - Time Time Spent with patient: 15-24 minutes Anticipated discharge: SNF Within: when bed available
[2017-12-11] MEDS: CLONIDINE HCL 0.1 MG TABLET PO SCH ×2 (09:48→23:25)
[2017-12-11] MEDS: ESCITALOPRAM OXALATE 10 MG TABLET PO SCH (09:49)
[2017-12-11] MEDS: VALSARTAN 160 MG TABLET PO SCH (09:49)
[2017-12-11] MEDS: ARIPIPRAZOLE 5 MG TABLET PO SCH (09:49)
[2017-12-11] MEDS: ASPIRIN 81 MG TABLET, ENT COATED PO SCH (09:49)
[2017-12-11] MEDS: LABETALOL HCL 200 MG TABLET PO SCH ×2 (09:50→23:25)
[2017-12-11] MEDS: AMLODIPINE BESYLATE 10 MG TABLET PO SCH (09:50)
[2017-12-11] MEDS: DOCUSATE SODIUM 100 MG CAPSULE PO SCH (09:50)
[2017-12-11] MEDS: CLOPIDOGREL BISULFATE 75 MG TABLET PO SCH (09:50)
[2017-12-11] MEDS: CHLORTHALIDONE 25 MG TABLET PO SCH (09:50)
[2017-12-11] MEDS: OXYCODONE HCL IR 5 MG TABLET PO PRN ×2 (09:51→18:59)
[2017-12-11] MEDS: HYDROCODONE/ACETAMINOPHEN 10-325 MG TABLET PO PRN ×2 (13:38→23:24)
--- NOTE | 2017-12-11 17:02 | EKG REPORT ---
SEVERITY:- ABNORMAL ECG - SINUS RHYTHM INCOMPLETE LEFT BUNDLE BRANCH BLOCK : Confirmed by: Irene Kowalski MD 11-Dec-2017 17:00:27
--- NOTE | 2017-12-11 19:52 | Progress Note ---
Provider Note Provider Note: PROGRESS NOTES by Dr. Irene Kowalski on 12/11/2017. SUBJECTIVE: I was unable to see the patient yesterday on rounds since the patient was in the operating room. She is back now she has had left ankle surgery without any untoward incidents. The patient denies any chest pain or discomfort. Patient remains in sinus rhythm, and there is no arrhythmias seen. There is no new TIA or CVA symptoms. There is no shortness of breath PND orthopnea. She only has trace leg edema. Selected Entries 12/11/17 11:18 Temperature 97.9 F Temperature Oral Source Pulse Rate 63 Respiratory 20 Rate Blood Pressure 105/62 Blood Pressure 76 Mean BP Location Left Arm BP Position Sitting O2 Sat by Pulse 95 Oximetry Oxygen Delivery Room Air Method PHYSICAL EXAMINATION: The patient is morbidly obese, but in no acute distress. She is well-groomed. HEAD: Is atraumatic normocephalic. EYES.: Pupils are equal round regular react to light accommodation. Extraocular movements are normal there is no clinical pallor there is no skin icterus. ENT: Is negative. NECK: Is supple. There is no JVD. Carotids are equal there is no bruit. There is no lymphadenopathy. There is no goiter. Trachea central. LUNGS: Is clear to auscultation percussion, without any rhonchi rales or wheezing. There is no chest wall tenderness. HEART: S1-S2 is heard there is no S3 gallop there is no S4 gallop the systolic murmur left sternal border and apex there is no rub. ABDOMEN: Is obese nontender there is no hepatosplenomegaly, and bowel sounds well heard. EXTREMITIES: Femorals are deep femorals are diminished. There is no femoral bruits. Leg pulses are diminished. There is trace pedal edema bilaterally. There is no DVT or cellulitis. There is no calf tenderness. There is no sinus or clubbing. SYSTEMS PROGRAM MANAGER: The patient is conscious awake alert oriented x3 with old mild residual left sided weakness. PSYCHIATRIC: The patient judgment and insight are intact her affect is normal. IMPRESSION/recommendation: 1. Left ankle fracture, status post surgery for this. Patient stable postop. 2. HYPERTENSION: Well-controlled continue current antihypertensives. 3. Hyperlipidemia: Continue statin. 4. 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 Remained stable. 5. Dysthymia: Present stable. Medications reviewed. Note cardiac status is stable. The patient does have risk factor for coronary artery disease. Later as an outpatient would recommend the patient have IV Lexiscan cardiac stress test. Medical decision making is of moderate complexity. 40 minutes spent on this patient more than 50 % of time spent in direct patient care. Discussed with other caregiving providers of the case. Will sign off. Thank you for allowing me to participate in the patient's care
--- NOTE | 2017-12-11 21:00 | PDOC PROGRESS REPORT ---
Subjective Progress Note for:: 12/11/17 Subjective:: Patient seen by the bedside, she is status post surgery of the left ankle, she is very obese, she would need fpc rehabilitation Reason For Visit: L ANKLE FRACTURE Physical Exam Vital Signs: Temp Pulse Resp BP Pulse Ox 98.7 F 62 20 90/52 L 96 12/11/17 19:42 12/11/17 19:42 12/11/17 19:42 12/11/17 19:42 12/11/17 19:42 Intake & Output 12/10/17 12/11/17 12/12/17 06:59 06:59 06:59 Intake Total 625 932 Balance 625 932 Weight 133.5 kg General appearance: PRESENT: no acute distress Eye exam: PRESENT: PERRLA Respiratory exam: PRESENT: clear to auscultation audelia Cardiovascular exam: PRESENT: +S1, +S2 GI/Abdominal exam: PRESENT: soft Neurological exam: PRESENT: alert Results Impressions: Chest X-Ray 12/09/17 00:00 IMPRESSION: NO ACUTE RADIOGRAPHIC FINDING IN THE CHEST. Ankle X-Ray 12/10/17 00:00 IMPRESSION: IMAGE(S) OBTAINED DURING PROCEDURE. Fluoroscopy 12/10/17 00:00 IMPRESSION: IMAGE(S) OBTAINED DURING PROCEDURE. Assessment & Plan - Diagnosis (1) Fracture of left ankle Qualifiers: Encounter type: initial encounter Fracture type: closed Qualified Code(s) : S82.892A - Other fracture of left lower leg, initial encounter for closed fracture Is this a current diagnosis for this admission?: Yes (2) Hemiplegia affecting dominant side Is this a current diagnosis for this admission?: Yes (3) Chronic diastolic (congestive) heart failure Is this a current diagnosis for this admission?: Yes (4) Hypertension Qualifiers: Hypertension type: essential hypertension Qualified Code(s): I10 - Essential (primary) hypertension Is this a current diagnosis for this admission?: Yes (5) Morbid (severe) obesity due to excess calories Is this a current diagnosis for this admission?: Yes
[2017-12-11] MEDS ORDERED: (PENDING PHARMACY ID) (Doxepin Hcl [Silenor] 6 MG) PO SCH (22:00)
[2017-12-11] MEDS: ATORVASTATIN CALCIUM 40 MG TABLET PO SCH (22:16)
[2017-12-12] MEDS: GABAPENTIN 300 MG CAPSULE PO SCH ×3 (05:38→21:09)
[2017-12-12] MEDS: NYSTATIN TOPICAL POWDER 15 GM TOP SCH ×3 (05:38→21:09)
[2017-12-12] MEDS: HYDRALAZINE HCL 50 MG TABLET PO SCH ×3 (05:38→21:09)
[2017-12-12] MEDS: OXYCODONE HCL IR 5 MG TABLET PO PRN ×2 (08:22→14:50)
[2017-12-12] MEDS: HYDROCODONE/ACETAMINOPHEN 10-325 MG TABLET PO PRN ×3 (08:22→21:09)
[2017-12-12] MEDS: DOCUSATE SODIUM 100 MG CAPSULE PO SCH (10:52)
[2017-12-12] MEDS: AMLODIPINE BESYLATE 10 MG TABLET PO SCH (10:52)
[2017-12-12] MEDS: CLOPIDOGREL BISULFATE 75 MG TABLET PO SCH (10:52)
[2017-12-12] MEDS: VALSARTAN 160 MG TABLET PO SCH (10:52)
[2017-12-12] MEDS: LABETALOL HCL 200 MG TABLET PO SCH ×2 (10:53→21:09)
[2017-12-12] MEDS: ESCITALOPRAM OXALATE 10 MG TABLET PO SCH (10:53)
[2017-12-12] MEDS: CHLORTHALIDONE 25 MG TABLET PO SCH (10:53)
[2017-12-12] MEDS: ASPIRIN 81 MG TABLET, ENT COATED PO SCH (10:53)
[2017-12-12] MEDS: CLONIDINE HCL 0.1 MG TABLET PO SCH ×2 (10:53→21:09)
[2017-12-12] MEDS: ARIPIPRAZOLE 5 MG TABLET PO SCH (10:53)
[2017-12-12] MEDS ORDERED: OXYCODONE-ACETAMINOPHEN 5-325 MG TABLET PO PRN (15:16)
--- NOTE | 2017-12-12 18:47 | PDOC PROGRESS REPORT ---
Subjective Progress Note for:: 12/12/17 Subjective:: Patient seen by the bedside, she continues to complain of pain of the left ankle , status post ORIF Reason For Visit: L ANKLE FRACTURE Physical Exam Vital Signs: Temp Pulse Resp BP Pulse Ox 98.1 F 60 18 117/64 95 12/12/17 14:48 12/12/17 14:48 12/12/17 14:48 12/12/17 14:48 12/12/17 14:48 Intake & Output 12/11/17 12/12/17 12/13/17 06:59 06:59 06:59 Intake Total 461 823 8203 Balance 383 879 6507 Weight 133.5 kg 134.8 kg General appearance: PRESENT: no acute distress Eye exam: PRESENT: PERRLA Respiratory exam: PRESENT: clear to auscultation audelia Cardiovascular exam: PRESENT: +S1, +S2 GI/Abdominal exam: PRESENT: soft Neurological exam: PRESENT: alert Results Impressions: Chest X-Ray 12/09/17 00:00 IMPRESSION: NO ACUTE RADIOGRAPHIC FINDING IN THE CHEST. Ankle X-Ray 12/10/17 00:00 IMPRESSION: IMAGE(S) OBTAINED DURING PROCEDURE. Fluoroscopy 12/10/17 00:00 IMPRESSION: IMAGE(S) OBTAINED DURING PROCEDURE. Assessment & Plan - Diagnosis (1) Fracture of left ankle Qualifiers: Encounter type: initial encounter Fracture type: closed Qualified Code(s) : S82.892A - Other fracture of left lower leg, initial encounter for closed fracture Is this a current diagnosis for this admission?: Yes (2) Hemiplegia affecting dominant side Is this a current diagnosis for this admission?: Yes (3) Chronic diastolic (congestive) heart failure Is this a current diagnosis for this admission?: Yes (4) Hypertension Qualifiers: Hypertension type: essential hypertension Qualified Code(s): I10 - Essential (primary) hypertension Is this a current diagnosis for this admission?: Yes (5) Morbid (severe) obesity due to excess calories Is this a current diagnosis for this admission?: Yes
[2017-12-12] MEDS: ATORVASTATIN CALCIUM 40 MG TABLET PO SCH (21:09)
[2017-12-13] MEDS: OXYCODONE HCL IR 5 MG TABLET PO PRN ×4 (04:31→21:46)
[2017-12-13] MEDS: HYDRALAZINE HCL 50 MG TABLET PO SCH ×3 (05:05→21:45)
[2017-12-13] MEDS: GABAPENTIN 300 MG CAPSULE PO SCH ×3 (05:05→21:44)
[2017-12-13] MEDS: NYSTATIN TOPICAL POWDER 15 GM TOP SCH ×3 (05:06→21:50)
--- NOTE | 2017-12-13 06:02 | PDOC PROGRESS REPORT ---
Subjective Progress Note for:: 12/13/17 Reason For Visit: L ANKLE FRACTURE 67-year-old black female status post open reduction internal fixation of a left bimalleolar ankle fracture. Patient without new complaints this morning. Limited progress with physical therapy. Physical Exam Vital Signs: Temp Pulse Resp BP Pulse Ox 36.6 C 56 L 16 140/77 H 98 12/13/17 03:59 12/13/17 03:59 12/13/17 03:59 12/13/17 03:59 12/13/17 03:59 Intake & Output 12/11/17 12/12/17 12/13/17 06:59 06:59 06:59 Intake Total 466 179 4182 Balance 748 365 3753 Weight 133.5 kg 134.8 kg Musculoskeletal exam: PRESENT: other - Left lower extremity remains immobilized in a posterior plaster splint. Brisk capillary refill to the digits. Patient unable to do a straight leg raise. Results Impressions: Chest X-Ray 12/09/17 00:00 IMPRESSION: NO ACUTE RADIOGRAPHIC FINDING IN THE CHEST. Ankle X-Ray 12/10/17 00:00 IMPRESSION: IMAGE(S) OBTAINED DURING PROCEDURE. Fluoroscopy 12/10/17 00:00 IMPRESSION: IMAGE(S) OBTAINED DURING PROCEDURE. Assessment & Plan - Diagnosis (1) Bimalleolar fracture of left ankle Qualifiers: Encounter type: initial encounter Fracture type: closed Qualified Code(s) : S82.842A - Displaced bimalleolar fracture of left lower leg, initial encounter for closed fracture Is this a current diagnosis for this admission?: Yes Plan: Mobilized with physical therapy on a nonweightbearing restriction. Anticipate the need [facility] when medically appropriate. - Time Time Spent with patient: 15-24 minutes Anticipated discharge: SNF Within: Other
[2017-12-13] MEDS: HYDROCODONE/ACETAMINOPHEN 10-325 MG TABLET PO PRN ×3 (08:38→18:08)
[2017-12-13] MEDS: ARIPIPRAZOLE 5 MG TABLET PO SCH (09:56)
[2017-12-13] MEDS: CLONIDINE HCL 0.1 MG TABLET PO SCH ×2 (09:57→22:15)
[2017-12-13] MEDS: ASPIRIN 81 MG TABLET, ENT COATED PO SCH (09:59)
[2017-12-13] MEDS: DOCUSATE SODIUM 100 MG CAPSULE PO SCH (10:00)
[2017-12-13] MEDS: AMLODIPINE BESYLATE 10 MG TABLET PO SCH (10:00)
[2017-12-13] MEDS: CLOPIDOGREL BISULFATE 75 MG TABLET PO SCH (10:00)
[2017-12-13] MEDS: LABETALOL HCL 200 MG TABLET PO SCH ×2 (10:01→21:44)
[2017-12-13] MEDS: ALBUTEROL SULFATE HFA (90 MCG/PUFF) 200 PUFF/8.5 GM MDI IH PRN (10:07)
[2017-12-13] MEDS: CHLORTHALIDONE 25 MG TABLET PO SCH (10:13)
[2017-12-13] MEDS: VALSARTAN 160 MG TABLET PO SCH (10:16)
[2017-12-13] MEDS: ESCITALOPRAM OXALATE 10 MG TABLET PO SCH (10:16)
--- NOTE | 2017-12-13 20:08 | PDOC PROGRESS REPORT ---
Subjective Progress Note for:: 12/13/17 Subjective:: She was seen by the bedside Reason For Visit: L ANKLE FRACTURE Physical Exam Vital Signs: Temp Pulse Resp BP Pulse Ox 97.8 F 65 18 92/50 L 98 12/13/17 15:08 12/13/17 15:08 12/13/17 15:08 12/13/17 15:08 12/13/17 15:08 Intake & Output 12/12/17 12/13/17 12/14/17 06:59 06:59 06:59 Intake Total 932 1500 1375 Balance 932 1500 1375 Weight 134.8 kg 130.6 kg General appearance: PRESENT: mild distress Eye exam: PRESENT: PERRLA Respiratory exam: PRESENT: clear to auscultation audelia Cardiovascular exam: PRESENT: +S1, +S2 GI/Abdominal exam: PRESENT: soft Neurological exam: PRESENT: alert Results Impressions: Chest X-Ray 12/09/17 00:00 IMPRESSION: NO ACUTE RADIOGRAPHIC FINDING IN THE CHEST. Ankle X-Ray 12/10/17 00:00 IMPRESSION: IMAGE(S) OBTAINED DURING PROCEDURE. Fluoroscopy 12/10/17 00:00 IMPRESSION: IMAGE(S) OBTAINED DURING PROCEDURE. Assessment & Plan - Diagnosis (1) Fracture of left ankle Qualifiers: Encounter type: initial encounter Fracture type: closed Qualified Code(s) : S82.892A - Other fracture of left lower leg, initial encounter for closed fracture Is this a current diagnosis for this admission?: Yes (2) Hemiplegia affecting dominant side Is this a current diagnosis for this admission?: Yes (3) Chronic diastolic (congestive) heart failure Is this a current diagnosis for this admission?: Yes (4) Hypertension Qualifiers: Hypertension type: essential hypertension Qualified Code(s): I10 - Essential (primary) hypertension Is this a current diagnosis for this admission?: Yes (5) Morbid (severe) obesity due to excess calories Is this a current diagnosis for this admission?: Yes
[2017-12-13] MEDS: ATORVASTATIN CALCIUM 40 MG TABLET PO SCH (22:15)
[2017-12-14] MEDS: GABAPENTIN 300 MG CAPSULE PO SCH ×2 (05:42→14:20)
[2017-12-14] MEDS: HYDRALAZINE HCL 50 MG TABLET PO SCH ×2 (05:42→14:14)
[2017-12-14] MEDS: OXYCODONE HCL IR 5 MG TABLET PO PRN ×2 (05:43→12:20)
[2017-12-14] MEDS: HYDROCODONE/ACETAMINOPHEN 10-325 MG TABLET PO PRN ×3 (08:32→18:26)
[2017-12-14] MEDS: ALBUTEROL SULFATE HFA (90 MCG/PUFF) 200 PUFF/8.5 GM MDI IH PRN (08:43)
[2017-12-14] MEDS: LABETALOL HCL 200 MG TABLET PO SCH (09:21)
[2017-12-14] MEDS: CLONIDINE HCL 0.1 MG TABLET PO SCH (09:22)
[2017-12-14] MEDS: AMLODIPINE BESYLATE 10 MG TABLET PO SCH (09:23)
[2017-12-14] MEDS: DOCUSATE SODIUM 100 MG CAPSULE PO SCH (09:23)
[2017-12-14] MEDS: ARIPIPRAZOLE 5 MG TABLET PO SCH (09:23)
[2017-12-14] MEDS: ESCITALOPRAM OXALATE 10 MG TABLET PO SCH (09:24)
[2017-12-14] MEDS: ASPIRIN 81 MG TABLET, ENT COATED PO SCH (09:24)
[2017-12-14] MEDS: CLOPIDOGREL BISULFATE 75 MG TABLET PO SCH (09:24)
[2017-12-14] MEDS: CHLORTHALIDONE 25 MG TABLET PO SCH (09:25)
[2017-12-14] MEDS: VALSARTAN 160 MG TABLET PO SCH (09:31)
[2017-12-14 13:33] VITALS: BP 109/69
[2017-12-14] MEDS: NYSTATIN TOPICAL POWDER 15 GM TOP SCH (14:19)
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
== END 2017-12-14 18:55 | DRG 493 ==
LOC: ER 21:11 → INTOOBSV 22:16 → EH 22:16 → 3S 12-08 02:23 → OBSVTOIN 12-10 17:56
PROVIDERS: ADMIT Internal Medicine; ATTEND Internal Medicine
PROC: 3E0F73Z Introduction of Anti-inflammatory into Respiratory Tract, Via Natural or Artificial Opening (ICD-10-PCS; 2017-12-08)
PROC: 0QSH04Z Reposition Left Tibia with Internal Fixation Device, Open Approach (ICD-10-PCS; 2017-12-10)
PROC: 0QSK04Z Reposition Left Fibula with Internal Fixation Device, Open Approach (ICD-10-PCS; principal; 2017-12-10 13:45)
DX: S82.842A Displaced bimalleolar fracture of left lower leg, initial encounter for closed fracture (principal); I50.32 Chronic diastolic (congestive) heart failure; Z68.43 Body mass index [BMI] 50.0-59.9, adult; I69.352 Hemiplegia and hemiparesis following cerebral infarction affecting left dominant side; X37.0XXA Hurricane, initial encounter; W01.0XXA Fall on same level from slipping, tripping and stumbling without subsequent striking against object, initial encounter; I11.0 Hypertensive heart disease with heart failure; E66.01 Morbid (severe) obesity due to excess calories; G89.29 Other chronic pain; E78.00 Pure hypercholesterolemia, unspecified; K21.9 Gastro-esophageal reflux disease without esophagitis; M19.90 Unspecified osteoarthritis, unspecified site; F32.9 Major depressive disorder, single episode, unspecified; F03.90 Unspecified dementia, unspecified severity, without behavioral disturbance, psychotic disturbance, mood disturbance, and anxiety; D64.9 Anemia, unspecified; F41.9 Anxiety disorder, unspecified; Z79.899 Other long term (current) drug therapy; Z59.1 Inadequate housing; Z88.8 Allergy status to other drugs, medicaments and biological substances; Z87.891 Personal history of nicotine dependence; Z82.61 Family history of arthritis; Z82.3 Family history of stroke; Z83.3 Family history of diabetes mellitus; Z82.49 Family history of ischemic heart disease and other diseases of the circulatory system
CPT/HCPCS: 01480; 36415; 71045; 80048; 82962; 85025; 85610; 93005; 93010; 93306; 94640; 99285; C1713; C1769; G0378; G8978-GP; G8979-GP; J0330; J0690; J1100; J2250; J2270; J2405; J2704; J3010; J3490

== ENCOUNTER 2018-04-06 08:32 | Inpatient (IN) | payer MEDICARE, MEDICAID ==
[2018-04-06] MEDS ORDERED: IPRATROPIUM/ALBUTEROL 0.5-2.5 MG/3 ML AMPUL NEB ONE ×3 (09:16→10:33)
[2018-04-06 09:23] LABS: ABSOLUTE EOSINOPHILS # (AUTO) 0.2 10^3/uL (0.0-0.6); ABSOLUTE LYMPHOCYTES (AUTO) 1.6 10^3/uL (0.5-4.7); ABSOLUTE MONOCYTES (AUTO) 0.7 10^3/uL (0.1-1.4); ABSOLUTE NEUT (AUTO) 1.3 10^3/uL (1.7-8.2); BASOPHILS % (AUTO) 0.6 % (0-2); EOSINOPHILS % (AUTO) 4.8 % (0-6); HEMATOCRIT 34.6 % (36.0-47.0); HEMOGLOBIN 11.2 g/dL (12.0-15.5); LYMPHOCYTES % (AUTO) 41.9 % (13-45); MEAN CORPUSCULAR HEMOGLOBIN 28.4 pg (27.0-33.4); MEAN CORPUSCULAR HGB CONC 32.5 g/dL (32.0-36.0); MEAN CORPUSCULAR VOLUME 88 fl (80-97); MONOCYTES % (AUTO) 18.6 % (3-13); PLATELET COUNT 160 10^3/uL (150-450); RED BLOOD COUNT 3.95 10^6/uL (3.72-5.28); RED CELL DISTRIBUTION WIDTH 15.9 % (11.5-14.0); SEGMENTED NEUTROPHILS % (AUTO) 34.1 % (42-78); TOTAL CELLS COUNTED % (AUTO) 100 %; WHITE BLOOD COUNT 3.8 10^3/uL (4.0-10.5)
[2018-04-06 09:30] LABS: ALANINE AMINOTRANSFERASE 40 U/L (9-52); ALKALINE PHOSPHATASE 69 U/L (38-126); ANION GAP 6 (5-19); ASPARTATE AMINO TRANSFERASE 32 U/L (14-36); BILIRUBIN,DIRECT 0.2 mg/dL (0.0-0.4); BILIRUBIN,TOTAL 0.4 mg/dL (0.2-1.3); BLOOD UREA NITROGEN 23 mg/dL (7-20); CALCIUM 9.4 mg/dL (8.4-10.2); CARBON DIOXIDE 32 mmol/L (22-30); CHLORIDE 105 mmol/L (98-107); CREATINE KINASE 426 U/L (30-135); GLUCOSE 111 mg/dL (75-110); POTASSIUM 3.3 mmol/L (3.6-5.0); SODIUM 143.4 mmol/L (137-145); TOTAL PROTEIN 6.9 g/dL (6.3-8.2)
[2018-04-06 09:42] LABS: NT PRO BNP 35 pg/mL (5-900)
--- NOTE | 2018-04-06 09:48 | RADIOLOGY REPORT (SQ) ---
EXAM DESCRIPTION: CHEST 2 VIEWS COMPLETED DATE/TIME: 04/06/2018 9:32 am REASON FOR STUDY: Shortness of Breath, Wheezing; Hx of CHF COMPARISON: 12/13/2015. EXAM PARAMETERS: NUMBER OF VIEWS: two views TECHNIQUE: Digital Frontal and Lateral radiographic views of the chest acquired. RADIATION DOSE: NA LIMITATIONS: none FINDINGS: LUNGS AND PLEURA: No opacities, masses or pneumothorax. No pleural effusion. MEDIASTINUM AND HILAR STRUCTURES: No masses or contour abnormalities. HEART AND VASCULAR STRUCTURES: Heart normal size. No evidence for failure. BONES: No acute findings. HARDWARE: None in the chest. OTHER: No other significant finding. IMPRESSION: NO ACUTE RADIOGRAPHIC FINDING IN THE CHEST. TECHNICAL DOCUMENTATION: JOB ID: [id number] [employer]- All Rights Reserved Reading location - IP/workstation name: [email or web address]
[2018-04-06 09:50] LABS: TROPONIN I < 0.012 ng/mL
--- NOTE | 2018-04-06 09:53 | ER Document Report ---
ED General - General Chief Complaint: Shortness Of Breath Stated Complaint: SHORTNESS OF BREATH Time Seen by Provider: 04/06/18 09:18 Mode of Arrival: Medic Information source: Patient Notes: 67-year-old female presents emergency department with complaints of shortness of breath, wheezing, productive cough, fever, rhinorrhea for the last 2 days. Patient states that she has a history of COPD. She is not on oxygen at home. She does use a nebulizer as needed. Patient states that she has been using a nebulizer without much relief of symptoms. Patient does have a history of congestive heart failure as well. She has noted some increased swelling in her legs. She denies any chest pain. TRAVEL OUTSIDE OF THE [place] IN LAST 30 DAYS: No - HPI Onset: Other - 2 days Onset/Duration: Gradual Quality of pain: No pain Severity: None Pain Level: Denies Associated symptoms: Productive cough, Fever, Leg swelling, Rhinnorhea, Sinus pain/drainage, Shortness of breath Exacerbated by: Denies Relieved by: Denies Similar symptoms previously: No Recently seen / treated by doctor: No - Related Data Allergies/Adverse Reactions: celecoxib [From Celebrex] Allergy (Unknown, Verified 01/25/16 18:17) ibuprofen [From Motrin] Allergy (Unknown, Verified 01/25/16 18:17) Past Medical History - General Information source: Patient - Social History Smoking Status: Former Smoker Family History: Reviewed & Not Pertinent, Arthritis, CVA, DM, Hyperlipidemia, Hypertension Patient has suicidal ideation: No Patient has homicidal ideation: No - Past Medical History Cardiac Medical History: Reports: Hx Congestive Heart Failure, Hx Hypercholesterolemia, Hx Hypertension, Hx Heart Murmur Denies: Hx Atrial Fibrillation, Hx Coronary Artery Disease, Hx Heart Attack Pulmonary Medical History: Denies: Hx Asthma, Hx Bronchitis, Hx COPD, Hx Pneumonia, Hx Tuberculosis Neurological Medical History: Reports: Hx Cerebrovascular Accident - mutliple, PT STATES SHE HAS HAD 25 RODRÍGUEZ.. Denies: Hx Seizures Endocrine Medical History: Renal/ Medical History: Denies: Hx End Stage Renal Disease, Hx Kidney Stones, Hx Peritoneal Dialysis Malignancy Medical History: GI Medical History: Reports: Hx Gastroesophageal Reflux Disease. Denies: Hx Hiatal Hernia, Hx Pancreatitis, Hx Ulcer Musculoskeletal Medical History: Reports Hx Arthritis, Reports Hx Musculoskeletal Deformity Psychiatric Medical History: Reports: Hx Anxiety, Hx Dementia - Multi-infarct, Hx Depression Denies: Hx Bipolar Disorder, Hx Schizophrenia Traumatic Medical History: Infectious Medical History: Past Surgical History: Reports: Hx Tubal Ligation. Denies: Hx Appendectomy, Hx Bowel Surgery, Hx Section, Hx Cholecystectomy, Hx Hysterectomy, Hx Mastectomy, Hx Tonsillectomy - Immunizations Immunizations up to date: Yes Hx Diphtheria, Pertussis, Tetanus Vaccination: Yes - STATES SHE HAS PNEUMONIA VACCINE IN 2013. Hx Pneumococcal Vaccination: 11/17/09 Review of Systems - Review of Systems Constitutional: Fever EENT: Nose discharge, Sinus pressure Cardiovascular: No symptoms reported Respiratory: Cough, Short of breath, Sputum Gastrointestinal: No symptoms reported Genitourinary: No symptoms reported Female Genitourinary: No symptoms reported Musculoskeletal: No symptoms reported Skin: No symptoms reported Hematologic/Lymphatic: No symptoms reported Neurological/Psychological: No symptoms reported -: Yes All other systems reviewed and negative Physical Exam - Vital signs Vitals: Resp Pulse Ox 20 100 04/06/18 08:39 04/06/18 08:39 - Notes Notes: PHYSICAL EXAMINATION: GENERAL: Well-appearing, well-nourished and in no acute distress. HEAD: Atraumatic, normocephalic. EYES: Pupils equal round and reactive to light, extraocular movements intact, conjunctiva are normal. ENT: Nares patent, oropharynx clear without exudates. Moist mucous membranes. NECK: Normal range of motion, supple without lymphadenopathy LUNGS: Diffuse wheezing and rhonchi. HEART: Regular rate and rhythm without murmurs ABDOMEN: Soft, nontender, nondistended abdomen. No guarding, no rebound. No masses appreciated. Female : deferred Musculoskeletal: Normal range of motion, 1+ lower extremity pitting edema bilaterally. No calf tenderness to palpation. NEUROLOGICAL: Cranial nerves grossly intact. Normal speech, right upper and lower extremity weakness secondary to an old stroke. PSYCH: Normal mood, normal affect. SKIN: Warm, Dry, normal turgor, no rashes or lesions noted. Course - Re-evaluation Re-evalutation: 04/06/18 09:51\EKG: Ventricular rate 76, MD interval 184, QRS duration 116, QTc 469, sinus rhythm. Left bundle branch block. Similar to EKG done on 12/11/17. 04/06/18 11:21 Labs and imaging obtained. No acute process seen on chest xray. Flu negative. Patient given multiple DuoNeb treatments on the emergency department. She continues to have diffuse wheezing. She is currently on 3 L nasal cannula and sating at 100%. She is not in any acute distress. ABG ordered. I contacted Dr. Stewart who is on-call for Dr. Gongora. He is agreeable with admitting the patient to the IMCU. - Vital Signs Vital signs: Temp Pulse Resp BP Pulse Ox 13 148/80 H 100 04/06/18 09:01 04/06/18 09:00 04/06/18 09:01 - Laboratory Result Diagrams: 04/06/18 08:55 04/06/18 08:55 Laboratory results interpreted by me: 04/06/18 04/06/18 08:55 08:55 WBC 3.8 L Hgb 11.2 L Hct 34.6 L RDW 15.9 H Seg Neutrophils % 34.1 L Monocytes % 18.6 H Absolute Neutrophils 1.3 L Potassium 3.3 L Carbon Dioxide 32 H BUN 23 H Est GFR (Non-Af Amer) 53 L Glucose 111 H Creatine Kinase 426 H Discharge - Discharge Clinical Impression: COPD (chronic obstructive pulmonary disease) Qualifiers: COPD type: COPD with acute exacerbation Qualified Code(s): J44.1 - Chronic obstructive pulmonary disease with (acute) exacerbation Condition: Stable Disposition: ADMITTED OBSERVATION Admitting Provider: Kaitlin Unit Admitted: [facility] Referrals: JUDY GONGORA MD [Primary Care Provider] - Follow up as needed
[2018-04-06 10:19] LABS: A TYPE INFLUENZA AG NEGATIVE (NEGATIVE); B INFLUENZA AG NEGATIVE (NEGATIVE)
[2018-04-06] MEDS ORDERED: CEFTRIAXONE INJ 1000 MG VIAL IV ONE (11:18)
[2018-04-06] MEDS ORDERED: ACETAMINOPHEN 325 MG TABLET PO PRN (11:21)
[2018-04-06] MEDS: IPRATROPIUM/ALBUTEROL 0.5-2.5 MG/3 ML AMPUL NEB SCH ×3 (12:31→21:07)
[2018-04-06] MEDS ORDERED: POTASSIUM CHLORIDE 10 MEQ CAPSULE.ER PO ONE ×2 (13:00→18:00)
[2018-04-06 13:14] LABS: ARTERIAL BLOOD BASE EXCESS 3.6 mmol/L; ARTERIAL BLOOD H2CO3 1.44 mmol/L (1.05-1.35); ARTERIAL BLOOD HCO3 29.1 mmol/L (20-24); ARTERIAL BLOOD O2 SATURATION 98.1 % (94-98); ARTERIAL BLOOD PCO2 47.9 mmHg (35-45); ARTERIAL BLOOD PO2 113.4 mmHg (80-100); ARTERIAL BLOOD TOTAL CO2 30.6 mmol/L (21-25)
[2018-04-06 13:15] LABS: ARTERIAL BLOOD FIO2 2L
--- NOTE | 2018-04-06 13:47 | RADIOLOGY REPORT (SQ) ---
EXAM DESCRIPTION: CTA CHEST COMPLETED DATE/TIME: 04/06/2018 1:36 pm REASON FOR STUDY: sob COMPARISON: None. TECHNIQUE: CT scan of the chest performed using helical scanning technique with dynamic intravenous contrast injection. Images reviewed with lung, soft tissue and bone windows. Reconstructed coronal and sagittal MPR images reviewed. Additional 3 dimensional post-processing performed to develop Maximal Intensity Projection images (DC P). All images stored on PACS. All CT scanners at this facility use dose modulation, iterative reconstruction, and/or weight based d osing when appropriate to reduce radiation dose to as low as reasonably achievable (ALARA). [facility]: Dose Right [facility]: CareDose [facility]: Dose Right [facility]: Teradose 4D [facility]: EDUS CONTRAST TYPE AND DOSE: contrast/concentration: Isovue 350.00 mg/ml; Total Contrast Delivered: 90.0 ml; Total Saline Delivered: 80.0 ml Contrast bolus adequate for pulmonary arteries and aorta. RENAL FUNCTION: BUN 23 creatinine 1.05. RADIATION DOSE: CT Rad equipment meets quality standard of care and radiation dose reduction techniq ues were employed. CTDIvol: 41.3 - 41.4 mGy. DLP: 1450 mGy-cm. . LIMITATIONS: None. FINDINGS: LUNGS AND PLEURA: No masses, infiltrates, or pneumothorax. No pleural effusions or pleura l calcifications. AORTA AND GREAT VESSELS: No aneurysm. Contrast bolus not optimized for the aorta. HEART: Cardiomegaly. No pericardial effusion. No significant coronary artery calcifications. PULMONARY ARTERIES: No emboli visualized in the main pulmonary arteries or the segmental branches. HILAR AND MEDIASTINAL STRUCTURES: No identified masses or abnormal nodes. HARDWARE: None in the chest. UPPER ABDOMEN: Gallstones. Limited exam. THYROID AND OTHER SOFT TISSUES: No masses. No adenopathy. BONES: No acute or significant finding. 3D MIPS: Confirm above findings. OTHER: No other significant finding. IMPRESSION: NORMAL CTA OF THE CHEST. NO PULMONARY EMBOLI. COMMENT: Quality ID # [id number]: Final reports with documentation of one or more dose reduction techniques (e.g., Automated exposure control, adjustment of the mA and/or kV according to patient size, use of iterative reconstruction technique) TECHNICAL DOCUMENTATION: JOB ID: [id number] [employer]- All Rights Reserved Reading location - IP/workstation name: [email or web address]
[2018-04-06 13:57] LABS: CREATINE KINASE MB 1.28 ng/mL (<4.55)
[2018-04-06 14:06] LABS: TROPONIN I < 0.012 ng/mL
--- NOTE | 2018-04-06 15:17 | PDOC H&P ---
History of Present Illness Admission Date/PCP: 04/06/18 11:25 JUDY GONGORA MD Patient complains of: shortness of breath History of Present Illness: KOKO EWING is a 67 year old female This is a 67-year-old female from the [facility] the patient of Dr. Gongora complaining of the shortness of the breath wheezing and productive cough and fever and rhinorrhea for the last 2 days Patient's try the nebulizer treatments and is still not helping Patient was brought to the emergency department initial workup was all stable except patient still wheezing and short of breath and patient was put in a nebulizer treatment and decided to admit Patient have a history of the COPD history of the heart failure Patient is denied any chest pain Patient recently admitted for the fracture Past Medical History Cardiac Medical History: Reports: Congestive Heart Failure, Hyperlipidema, Hypertension, Heart Murmur Denies: Atrial Fibrillation, Coronary Artery Disease, Myocardial Infarction Pulmonary Medical History: Reports: Chronic Obstructive Pulmonary Disease (COPD) Denies: Asthma, Bronchitis, Pneumonia, Tuberculosis Neurological Medical History: Denies: Seizures Endocrine Medical History: Renal/ Medical History: Denies: End Stage Renal Disease Malignancy Medical History: GI Medical History: Reports: Gastroesophageal Reflux Disease Denies: Hiatal Hernia Musculoskeltal Medical History: Reports: Arthritis Psychiatric Medical History: Reports: Dementia - Multi-infarct, Depression Denies: Bipolar Disorder Hematology: Reports: Anemia Denies: Hemophilia, Sickle Cell Disease Infectious Medical History: Past Surgical History Past Surgical History: Reports: Tubal Ligation Denies: Amputation, Appendectomy, Section, Cholecystectomy, Hyster ectomy, Mastectomy, Tonsillectomy Social History Smoking Status: Former Smoker Frequency of Alcohol Use: None Hx Recreational Drug Use: No Drugs: None Hx Prescription Drug Abuse: No Family History Family History: Reviewed & Not Pertinent, Arthritis, CVA, DM, Hyperlipidemia, Hypertension Parental Family History Reviewed: Yes Children Family History Reviewed: Yes Sibling(s) Family History Reviewed.: Yes Medication/Allergy Home Medications: Amlodipine/Valsartan [Exforge 10-320 mg Tablet] 1 tab PO DAILY 12/08/17 Aripiprazole [Abilify] 15 mg PO DAILY 12/08/17 Chlorthalidone [Chlorthalidone 50 mg Tablet] 50 mg PO DAILY 12/08/17 Clonidine HCl [Catapres 0.3 mg Tablet] 0.3 mg PO Q12 12/08/17 Clopidogrel Bisulfate [Plavix 75 mg Tablet] 75 mg PO DAILY 12/08/17 Doxepin HCl [Silenor] 6 mg PO QHS 12/08/17 Escitalopram Oxalate [Lexapro 10 mg Tablet] 10 mg PO DAILY 12/08/17 Gabapentin [Neurontin 300 mg Capsule] 300 mg PO Q8 12/08/17 Hydralazine HCl [Apresoline 50 mg Tablet] 50 mg PO Q8 12/08/17 Labetalol HCl [Normodyne 200 mg Tablet] 200 mg PO Q12 12/08/17 Hydrocodone/Acetaminophen [Hydrocodone-Acetamin 10-325 mg] 1 tab PO Q8HP PRN #90 tablet 12/14/17 Atorvastatin Calcium [Lipitor] 80 mg PO HSP 04/06/18 Ipratropium/Albuterol Sulfate [Duoneb 3 ml Ampul] 3 ml NEB RTQ6 PRN 04/06/18 Levofloxacin [Levaquin 500 mg Tablet] 500 mg PO DAILY 04/06/18 Allergies/Adverse Reactions: celecoxib [From Celebrex] Allergy (Unknown, Verified 01/25/16 18:17) ibuprofen [From Motrin] Allergy (Unknown, Verified 01/25/16 18:17) Review of Systems Constitutional: PRESENT: weakness. ABSENT: chills, fever(s), headache(s), weight gain, weight loss Eyes: ABSENT: visual disturbances Ears: ABSENT: hearing changes Cardiovascular: ABSENT: chest pain, dyspnea on exertion, edema, orthropnea, palpitations Respiratory: ABSENT: cough, hemoptysis Gastrointestinal: ABSENT: abdominal pain, constipation, diarrhea, hematemesis, hematochezia, nausea, vomiting Genitourinary: ABSENT: dysuria, hematuria Musculoskeletal: ABSENT: joint swelling Integumentary: ABSENT: rash, wounds Neurological: ABSENT: abnormal gait, abnormal speech, confusion, dizziness, focal weakness, syncope Psychiatric: ABSENT: anxiety, depression, homidical ideation, suicidal ideation Endocrine: ABSENT: cold intolerance, heat intolerance, menstrual abnormalities, polydipsia, polyuria Hematologic/Lymphatic: ABSENT: easy bleeding, easy bruising, lymphadenopathy Physical Exam Vital Signs: Temp Pulse Resp BP Pulse Ox 13 148/80 H 100 04/06/18 09:01 04/06/18 09:00 04/06/18 09:01 General appearance: PRESENT: no acute distress, well-developed, well-nourished Head exam: PRESENT: atraumatic, normocephalic Eye exam: PRESENT: conjunctiva pink, EOMI, PERRLA. ABSENT: scleral icterus Ear exam: PRESENT: normal external ear exam Mouth exam: PRESENT: moist, tongue midline Neck exam: PRESENT: full ROM. ABSENT: carotid bruit, JVD, lymphadenopathy, thyromegaly Respiratory exam: PRESENT: wheezes Cardiovascular exam: PRESENT: RRR. ABSENT: diastolic murmur, rubs, systolic murmur Vascular exam: PRESENT: normal capillary refill GI/Abdominal exam: PRESENT: normal bowel sounds, soft. ABSENT: distended, guarding, mass, organolmegaly, rebound, tenderness Rectal exam: PRESENT: deferred Extremities exam: PRESENT: pedal edema Neurological exam: PRESENT: alert, awake, oriented to person, oriented to place, oriented to time, oriented to situation, CN II-XII grossly intact. ABSENT: motor sensory deficit Additional comments: Right upper extremity weakness secondary to the old stroke Psychiatric exam: PRESENT: appropriate affect, normal mood. ABSENT: homicidal ideation, suicidal ideation Skin exam: PRESENT: dry, intact, warm. ABSENT: cyanosis, rash Results Laboratory Results: 04/06/18 08:55 04/06/18 08:55 04/06/18 04/06/18 08:55 08:55 WBC 3.8 L RBC 3.95 Hgb 11.2 L Hct 34.6 L MCV 88 MCH 28.4 MCHC 32.5 RDW 15.9 H Plt Count 160 Seg Neutrophils % 34.1 L Lymphocytes % 41.9 Monocytes % 18.6 H Eosinophils % 4.8 Basophils % 0.6 Absolute Neutrophils 1.3 L Absolute Lymphocytes 1.6 Absolute Monocytes 0.7 Absolute Eosinophils 0.2 Absolute Basophils 0.0 Sodium 143.4 Potassium 3.3 L Chloride 105 Carbon Dioxide 32 H Anion Gap 6 BUN 23 H Creatinine 1.05 Est GFR ( Amer) > 60 Est GFR (Non-Af Amer) 53 L Glucose 111 H Calcium 9.4 Total Bilirubin 0.4 AST 32 ALT 40 Alkaline Phosphatase 69 Total Protein 6.9 Albumin 4.0 04/06/18 04/06/18 08:55 08:55 Creatine Kinase 426 H CK-MB (CK-2) 1.20 Troponin I < 0.012 NT-Pro-B Natriuret Pep 35 Impressions: Chest X-Ray 04/06/18 00:00 IMPRESSION: NO ACUTE RADIOGRAPHIC FINDING IN THE CHEST. Assessment & Plan - Diagnosis (1) COPD (chronic obstructive pulmonary disease) Qualifiers: COPD type: COPD with acute exacerbation Qualified Code(s): J44.1 - Chronic obstructive pulmonary disease with (acute) exacerbation Is this a current diagnosis for this admission?: Yes Plan: Start the patient on a nebulizer treatments Start the patient on antibiotics Get the blood culture urine cultures and sputum cultures (2) Chronic diastolic (congestive) heart failure Is this a current diagnosis for this admission?: Yes Plan: Continues to Lasix (3) Hemiplegia affecting dominant side Is this a current diagnosis for this admission?: Yes (4) History of CVA (cerebrovascular accident) Is this a current diagnosis for this admission?: Yes (5) Hypertension Qualifiers: Hypertension type: essential hypertension Qualified Code(s): I10 - Essential (primary) hypertension Is this a current diagnosis for this admission?: Yes (6) Morbid (severe) obesity due to excess calories Is this a current diagnosis for this admission?: Yes - Time Time Spent: 50 to 70 Minutes Medications reviewed and adjusted accordingly: Yes Anticipated discharge: SNF Within: Other - Inpatient Certification Based on my medical assessment, after consideration of the patient's comorbidities, presenting symptoms, or acuity I expect that the services needed warrant INPATIENT care.: Yes I certify that my determination is in accordance with my understanding of Medicare's requirements for reasonable and necessary INPATIENT services [42 CFR 412.3e].: Yes Medical Necessity: Significant Comorbidiites Make Outpatient Treatment Too Risky, Need Close Monitoring Due to Risk of Patient Decompensation, Need for IV Antibiotics Post Hospital Care: D/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
[2018-04-06] MEDS ORDERED: ALBUTEROL SULFATE HFA (90 MCG/PUFF) 8 GM MDI (1 MDI/ER DISP) IH PRN (16:15)
[2018-04-06] MEDS ORDERED: ALBUTEROL SULFATE HFA (90 MCG/PUFF) 200 PUFF/8.5 GM MDI IH PRN (16:18)
[2018-04-06] MEDS ORDERED: CEFTRIAXONE 1 GM/D5W RTU 1 GM/50 ML RTUPB IV ONE (17:00)
[2018-04-06] MEDS: DOCUSATE SODIUM 100 MG CAPSULE PO SCH (17:46)
[2018-04-06] MEDS: ENOXAPARIN SODIUM INJ 40 MG/0.4 ML DISP.SYRIN SUBCUT SCH (17:46)
[2018-04-06] MEDS: GABAPENTIN 300 MG CAPSULE PO SCH ×2 (17:46→21:55)
[2018-04-06 18:04] LABS: CREATINE KINASE MB 1.44 ng/mL (<4.55); TROPONIN I 0.014 ng/mL
[2018-04-06] MEDS: HYDROCODONE/ACETAMINOPHEN 10-325 MG TABLET PO PRN (20:43)
[2018-04-06] MEDS: CLONIDINE HCL 0.1 MG TABLET PO SCH (21:53)
[2018-04-06] MEDS: HYDRALAZINE HCL 50 MG TABLET PO SCH (21:54)
[2018-04-06] MEDS: ATORVASTATIN CALCIUM 80 MG TABLET PO SCH (21:54)
[2018-04-06] MEDS: LABETALOL HCL 200 MG TABLET PO SCH (21:54)
[2018-04-06] MEDS: CEFEPIME 1 GM/D5W RTU 1 GM/50 ML RTUPB IV SCH (21:55)
[2018-04-06] MEDS ORDERED: (PENDING PHARMACY ID) (Doxepin Hcl [Silenor] 6 MG) PO SCH (22:00)
[2018-04-06] MEDS ORDERED: (PENDING PHARMACY ID) (Clonidine Hcl [Catapres 0.3 Mg Tablet] 0.3 MG) PO SCH (22:00)
[2018-04-07 00:03] LABS: CREATINE KINASE MB 1.28 ng/mL (<4.55); TROPONIN I 0.022 ng/mL
[2018-04-07] MEDS: HYDROCODONE/ACETAMINOPHEN 10-325 MG TABLET PO PRN (05:25)
[2018-04-07] MEDS: HYDRALAZINE HCL 50 MG TABLET PO SCH ×3 (05:26→22:43)
[2018-04-07] MEDS: GABAPENTIN 300 MG CAPSULE PO SCH ×3 (05:26→22:45)
[2018-04-07 05:45] LABS: ABSOLUTE EOSINOPHILS # (AUTO) 0.1 10^3/uL (0.0-0.6); ABSOLUTE LYMPHOCYTES (AUTO) 1.8 10^3/uL (0.5-4.7); ABSOLUTE MONOCYTES (AUTO) 0.7 10^3/uL (0.1-1.4); BASOPHILS % (AUTO) 0.5 % (0-2); EOSINOPHILS % (AUTO) 2.4 % (0-6); HEMATOCRIT 32.7 % (36.0-47.0); HEMOGLOBIN 10.6 g/dL (12.0-15.5); LYMPHOCYTES % (AUTO) 38.2 % (13-45); MEAN CORPUSCULAR HEMOGLOBIN 28.3 pg (27.0-33.4); MEAN CORPUSCULAR HGB CONC 32.5 g/dL (32.0-36.0); MEAN CORPUSCULAR VOLUME 87 fl (80-97); PLATELET COUNT 150 10^3/uL (150-450); RED BLOOD COUNT 3.75 10^6/uL (3.72-5.28); RED CELL DISTRIBUTION WIDTH 15.7 % (11.5-14.0); SEGMENTED NEUTROPHILS % (AUTO) 42.9 % (42-78); TOTAL CELLS COUNTED % (AUTO) 100 %; WHITE BLOOD COUNT 4.6 10^3/uL (4.0-10.5)
[2018-04-07 06:06] LABS: BLOOD UREA NITROGEN 20 mg/dL (7-20); CALCIUM 9.3 mg/dL (8.4-10.2); GLUCOSE 99 mg/dL (75-110)
[2018-04-07 06:07] LABS: ANION GAP 8 (5-19); CARBON DIOXIDE 30 mmol/L (22-30); CHLORIDE 106 mmol/L (98-107); POTASSIUM 3.5 mmol/L (3.6-5.0); SODIUM 143.8 mmol/L (137-145)
[2018-04-07] MEDS: IPRATROPIUM/ALBUTEROL 0.5-2.5 MG/3 ML AMPUL NEB SCH ×4 (08:19→21:03)
[2018-04-07] MEDS: LEVOFLOXACIN 500 MG/D5W RTU 500 MG/100 ML RTUPB IV SCH (09:12)
[2018-04-07] MEDS: FUROSEMIDE INJ/PF 20 MG/2 ML SDV IV SCH (09:19)
[2018-04-07] MEDS: CLOPIDOGREL BISULFATE 75 MG TABLET PO SCH (09:21)
[2018-04-07] MEDS: ENOXAPARIN SODIUM INJ 40 MG/0.4 ML DISP.SYRIN SUBCUT SCH (09:21)
[2018-04-07] MEDS: AMLODIPINE BESYLATE 10 MG TABLET PO SCH (09:22)
[2018-04-07] MEDS: ARIPIPRAZOLE 5 MG TABLET PO SCH (09:22)
[2018-04-07] MEDS: DOCUSATE SODIUM 100 MG CAPSULE PO SCH ×2 (09:22→18:40)
[2018-04-07] MEDS: VALSARTAN 160 MG TABLET PO SCH (09:22)
[2018-04-07] MEDS: LABETALOL HCL 200 MG TABLET PO SCH ×2 (09:22→22:43)
[2018-04-07] MEDS: ESCITALOPRAM OXALATE 10 MG TABLET PO SCH (09:23)
[2018-04-07] MEDS ORDERED: AMLODIPINE PO SCH (10:00)
[2018-04-07] MEDS ORDERED: ARIPIPRAZOLE 15 MG PO SCH (10:00)
[2018-04-07] MEDS ORDERED: VALSARTAN PO SCH (10:00)
[2018-04-07] MEDS: CEFEPIME 1 GM/D5W RTU 1 GM/50 ML RTUPB IV SCH ×2 (10:43→22:47)
[2018-04-07] MEDS: CLONIDINE HCL 0.1 MG TABLET PO SCH ×2 (10:43→22:46)
--- NOTE | 2018-04-07 13:14 | PDOC PROGRESS REPORT ---
Subjective Progress Note for:: 04/07/18 Subjective:: Patient is currently doing fair Patient's is still have a coughing spell No chest pain No short of breath Patient's oxygen saturations are 95 on room air Reason For Visit: COPD ACUTE Physical Exam Vital Signs: Temp Pulse Resp BP Pulse Ox 98.8 F 72 18 122/71 97 04/07/18 03:11 04/07/18 12:32 04/07/18 12:32 04/07/18 03:11 04/07/18 12:32 Intake & Output 04/06/18 04/07/18 04/08/18 06:59 06:59 06:59 Intake Total 100 150 Balance 100 150 Weight 109.8 kg General appearance: PRESENT: no acute distress, well-developed, well-nourished Head exam: PRESENT: atraumatic, normocephalic Eye exam: PRESENT: conjunctiva pink, EOMI, PERRLA. ABSENT: scleral icterus Ear exam: PRESENT: normal external ear exam Mouth exam: PRESENT: moist, tongue midline Neck exam: PRESENT: full ROM. ABSENT: carotid bruit, JVD, lymphadenopathy, thyromegaly Respiratory exam: PRESENT: clear to auscultation audelia Cardiovascular exam: PRESENT: RRR. ABSENT: diastolic murmur, rubs, systolic murmur Vascular exam: PRESENT: normal capillary refill GI/Abdominal exam: PRESENT: normal bowel sounds, soft. ABSENT: distended, guarding, mass, organolmegaly, rebound, tenderness Rectal exam: PRESENT: deferred Neurological exam: PRESENT: alert, awake, oriented to person. ABSENT: motor sensory deficit Additional comments: Right-sided old stroke weakness Psychiatric exam: PRESENT: appropriate affect, normal mood. ABSENT: homicidal ideation, suicidal ideation Skin exam: PRESENT: dry, intact, warm. ABSENT: cyanosis, rash Results Laboratory Results: 04/07/18 04:49 04/07/18 04:49 04/06/18 04/07/18 04/07/18 11:27 04:49 04:49 WBC 4.6 RBC 3.75 Hgb 10.6 L Hct 32.7 L MCV 87 MCH 28.3 MCHC 32.5 RDW 15.7 H Plt Count 150 Seg Neutrophils % 42.9 Lymphocytes % 38.2 Monocytes % 16.0 H Eosinophils % 2.4 Basophils % 0.5 Absolute Neutrophils 2.0 Absolute Lymphocytes 1.8 Absolute Monocytes 0.7 Absolute Eosinophils 0.1 Absolute Basophils 0.0 Carbonic Acid 1.44 H HCO3/H2CO3 Ratio 20:1 ABG pH 7.40 ABG pCO2 47.9 H ABG pO2 113.4 H ABG HCO3 29.1 H ABG O2 Saturation 98.1 H ABG Base Excess 3.6 FiO2 2L Sodium 143.8 Potassium 3.5 L Chloride 106 Carbon Dioxide 30 Anion Gap 8 BUN 20 Creatinine 0.98 Est GFR ( Amer) > 60 Est GFR (Non-Af Amer) 57 L Glucose 99 Calcium 9.3 Magnesium 2.0 04/06/18 04/06/18 04/06/18 08:55 08:55 12:50 Creatine Kinase 426 H 464 H CK-MB (CK-2) 1.20 Troponin I < 0.012 NT-Pro-B Natriuret Pep 35 04/06/18 04/06/18 04/06/18 12:50 17:30 17:30 Creatine Kinase 519 H CK-MB (CK-2) 1.28 1.44 Troponin I < 0.012 0.014 NT-Pro-B Natriuret Pep 04/06/18 04/06/18 04/07/18 23:27 23:27 04:49 Creatine Kinase 523 H CK-MB (CK-2) 1.28 Troponin I 0.022 NT-Pro-B Natriuret Pep 118 Impressions: Chest X-Ray 04/06/18 00:00 IMPRESSION: NO ACUTE RADIOGRAPHIC FINDING IN THE CHEST. Chest/Abdomen CTA 04/06/18 00:00 IMPRESSION: NORMAL CTA OF THE CHEST. NO PULMONARY EMBOLI. Assessment & Plan - Diagnosis (1) COPD (chronic obstructive pulmonary disease) Qualifiers: COPD type: COPD with acute exacerbation Qualified Code(s): J44.1 - Chronic obstructive pulmonary disease with (acute) exacerbation Is this a current diagnosis for this admission?: Yes Plan: To use the nebulizer treatments (2) Chronic diastolic (congestive) heart failure Is this a current diagnosis for this admission?: Yes Plan: Continues IV Lasix (3) Hemiplegia affecting dominant side Is this a current diagnosis for this admission?: Yes (4) History of CVA (cerebrovascular accident) Is this a current diagnosis for this admission?: Yes (5) Hypertension Qualifiers: Hypertension type: essential hypertension Qualified Code(s): I10 - Essential (primary) hypertension Is this a current diagnosis for this admission?: Yes (6) Morbid (severe) obesity due to excess calories Is this a current diagnosis for this admission?: Yes - Time Time Spent with patient: 15-24 minutes Medications reviewed and adjusted accordingly: Yes Anticipated discharge: SNF Within: Other - Plan Summary Plan Summary: Continues to IV antibiotic Continues to nebulizer treatment Replace the potassiums
[2018-04-07] MEDS ORDERED: POTASSIUM CHLORIDE 10 MEQ CAPSULE.ER PO ONE (13:30)
[2018-04-07] MEDS: ATORVASTATIN CALCIUM 80 MG TABLET PO SCH (22:46)
[2018-04-08 05:15] LABS: ABSOLUTE EOSINOPHILS # (AUTO) 0.2 10^3/uL (0.0-0.6); ABSOLUTE LYMPHOCYTES (AUTO) 2.1 10^3/uL (0.5-4.7); ABSOLUTE MONOCYTES (AUTO) 0.7 10^3/uL (0.1-1.4); ABSOLUTE NEUT (AUTO) 1.9 10^3/uL (1.7-8.2); BASOPHILS % (AUTO) 0.2 % (0-2); EOSINOPHILS % (AUTO) 3.6 % (0-6); HEMATOCRIT 32.4 % (36.0-47.0); HEMOGLOBIN 10.5 g/dL (12.0-15.5); LYMPHOCYTES % (AUTO) 42.6 % (13-45); MEAN CORPUSCULAR HEMOGLOBIN 28.5 pg (27.0-33.4); MEAN CORPUSCULAR HGB CONC 32.6 g/dL (32.0-36.0); MEAN CORPUSCULAR VOLUME 87 fl (80-97); MONOCYTES % (AUTO) 14.4 % (3-13); PLATELET COUNT 129 10^3/uL (150-450); RED CELL DISTRIBUTION WIDTH 15.5 % (11.5-14.0); SEGMENTED NEUTROPHILS % (AUTO) 39.2 % (42-78); TOTAL CELLS COUNTED % (AUTO) 100 %; WHITE BLOOD COUNT 4.8 10^3/uL (4.0-10.5)
[2018-04-08 05:41] LABS: ANION GAP 5 (5-19); BLOOD UREA NITROGEN 26 mg/dL (7-20); CALCIUM 9.3 mg/dL (8.4-10.2); CARBON DIOXIDE 31 mmol/L (22-30); CHLORIDE 105 mmol/L (98-107); GLUCOSE 101 mg/dL (75-110); POTASSIUM 3.5 mmol/L (3.6-5.0); SODIUM 140.8 mmol/L (137-145)
[2018-04-08] MEDS: HYDRALAZINE HCL 50 MG TABLET PO SCH ×3 (05:58→21:26)
[2018-04-08] MEDS: GABAPENTIN 300 MG CAPSULE PO SCH ×3 (05:58→21:26)
[2018-04-08] MEDS: LEVOFLOXACIN 500 MG/D5W RTU 500 MG/100 ML RTUPB IV SCH (08:10)
[2018-04-08] MEDS: IPRATROPIUM/ALBUTEROL 0.5-2.5 MG/3 ML AMPUL NEB SCH ×4 (08:39→19:57)
[2018-04-08] MEDS: CEFEPIME 1 GM/D5W RTU 1 GM/50 ML RTUPB IV SCH ×2 (09:30→21:24)
[2018-04-08] MEDS: FUROSEMIDE INJ/PF 20 MG/2 ML SDV IV SCH (09:31)
[2018-04-08] MEDS: ENOXAPARIN SODIUM INJ 40 MG/0.4 ML DISP.SYRIN SUBCUT SCH (09:31)
[2018-04-08] MEDS: VALSARTAN 160 MG TABLET PO SCH (09:32)
[2018-04-08] MEDS: DOCUSATE SODIUM 100 MG CAPSULE PO SCH ×2 (09:32→17:24)
[2018-04-08] MEDS: ARIPIPRAZOLE 5 MG TABLET PO SCH (09:32)
[2018-04-08] MEDS: LABETALOL HCL 200 MG TABLET PO SCH ×2 (09:32→21:26)
[2018-04-08] MEDS: ESCITALOPRAM OXALATE 10 MG TABLET PO SCH (09:33)
[2018-04-08] MEDS: AMLODIPINE BESYLATE 10 MG TABLET PO SCH (09:33)
[2018-04-08] MEDS: CLOPIDOGREL BISULFATE 75 MG TABLET PO SCH (09:33)
[2018-04-08] MEDS: CLONIDINE HCL 0.1 MG TABLET PO SCH ×2 (09:33→21:26)
[2018-04-08] MEDS ORDERED: LEVALBUTEROL HCL NEB 1.25 MG/3 ML AMPUL NEB PRN ×2 (11:00→21:52)
[2018-04-08] MEDS: METHYLPREDNISOLONE INJ 40 MG/1 ML SDV IV SCH ×3 (13:20→21:26)
--- NOTE | 2018-04-08 18:31 | EKG REPORT ---
SEVERITY:- ABNORMAL ECG - SINUS RHYTHM INCOMPLETE LEFT BUNDLE BRANCH BLOCK LEFT VENTRICULAR HYPERTROPHY : Confirmed by: Irene Kowalski MD 08-Apr-2018 18:30:27
[2018-04-08] MEDS: ATORVASTATIN CALCIUM 80 MG TABLET PO SCH (21:26)
--- NOTE | 2018-04-08 22:05 | PDOC PROGRESS REPORT ---
Subjective Progress Note for:: 04/08/18 Subjective:: Patient was seen by the bedside, she was transferred from the halfway to the emergency room for evaluation of shortness of breath and wheezing. She is presently in the halfway undergoing physical therapy and rehabilitation for his sustained fracture of the left femur. Patient is not known to have a history of COPD, in the emergency room she was appropriately evaluated with a CTA chest because of concern for pulmonary embolism, the CTA chest was negative for PE there was no CT evidence of pneumonia as well. When I saw her today on the floor she was audibly wheezing presently on IV Solu-Medrol. We need to rule out acute diastolic heart failure this patient, a 2D echo will be requested and also a full PFT will be ordered. Reason For Visit: COPD ACUTE Physical Exam Vital Signs: Temp Pulse Resp BP Pulse Ox 98.0 F 73 20 150/78 H 96 04/08/18 18:29 04/08/18 20:00 04/08/18 20:00 04/08/18 18:29 04/08/18 20:00 Intake & Output 04/07/18 04/08/18 04/09/18 06:59 06:59 06:59 Intake Total 100 1218 924 Balance 100 1218 924 Weight 109.8 kg 136.8 kg General appearance: PRESENT: mild distress Head exam: PRESENT: atraumatic, normocephalic Eye exam: PRESENT: PERRLA Neck exam: PRESENT: full ROM Respiratory exam: PRESENT: wheezes Cardiovascular exam: PRESENT: RRR, +S1, +S2 GI/Abdominal exam: PRESENT: soft Rectal exam: PRESENT: deferred Neurological exam: PRESENT: alert, motor sensory deficit Skin exam: PRESENT: dry, intact, warm Results Laboratory Results: 04/08/18 04:28 04/08/18 04:28 04/08/18 04/08/18 04:28 04:28 WBC 4.8 RBC 3.70 L Hgb 10.5 L Hct 32.4 L MCV 87 MCH 28.5 MCHC 32.6 RDW 15.5 H Plt Count 129 L Seg Neutrophils % 39.2 L Lymphocytes % 42.6 Monocytes % 14.4 H Eosinophils % 3.6 Basophils % 0.2 Absolute Neutrophils 1.9 Absolute Lymphocytes 2.1 Absolute Monocytes 0.7 Absolute Eosinophils 0.2 Absolute Basophils 0.0 Sodium 140.8 Potassium 3.5 L Chloride 105 Carbon Dioxide 31 H Anion Gap 5 BUN 26 H Creatinine 1.06 Est GFR ( Amer) > 60 Est GFR (Non-Af Amer) 52 L Glucose 101 Calcium 9.3 04/06/18 04/06/18 04/06/18 08:55 08:55 12:50 Creatine Kinase 426 H 464 H CK-MB (CK-2) 1.20 Troponin I < 0.012 NT-Pro-B Natriuret Pep 35 04/06/18 04/06/18 04/06/18 12:50 17:30 17:30 Creatine Kinase 519 H CK-MB (CK-2) 1.28 1.44 Troponin I < 0.012 0.014 NT-Pro-B Natriuret Pep 04/06/18 04/06/18 04/07/18 23:27 23:27 04:49 Creatine Kinase 523 H CK-MB (CK-2) 1.28 Troponin I 0.022 NT-Pro-B Natriuret Pep 118 Impressions: Chest X-Ray 04/06/18 00:00 IMPRESSION: NO ACUTE RADIOGRAPHIC FINDING IN THE CHEST. Chest/Abdomen CTA 04/06/18 00:00 IMPRESSION: NORMAL CTA OF THE CHEST. NO PULMONARY EMBOLI. Assessment & Plan - Diagnosis (1) Wheezing Is this a current diagnosis for this admission?: Yes Plan: The differential diagnosis is very long, these include acute diastolic heart failure, bronchospastic disease, COPD, bronchiectasis or asthma. Patient presently on Solu-Medrol, there is no evidence of pneumonia, antibiotic discontinued, continue Solu-Medrol, order 2D echo, order BNP, order full PFT (2) History of cerebrovascular accident with residual deficit Is this a current diagnosis for this admission?: Yes (3) Morbid obesity due to excess calories Is this a current diagnosis for this admission?: Yes (4) Hypertension Qualifiers: Hypertension type: essential hypertension Qualified Code(s): I10 - Essential (primary) hypertension Is this a current diagnosis for this admission?: Yes
[2018-04-09] MEDS: METHYLPREDNISOLONE INJ 40 MG/1 ML SDV IV SCH ×3 (05:06→21:46)
[2018-04-09] MEDS: GABAPENTIN 300 MG CAPSULE PO SCH ×3 (05:07→21:47)
[2018-04-09] MEDS: HYDRALAZINE HCL 50 MG TABLET PO SCH ×3 (05:07→21:47)
[2018-04-09 06:18] LABS: ABSOLUTE MONOCYTES (AUTO) 0.2 10^3/uL (0.1-1.4); ABSOLUTE NEUT (AUTO) 3.4 10^3/uL (1.7-8.2); BASOPHILS % (AUTO) 0.2 % (0-2); HEMOGLOBIN 11.6 g/dL (12.0-15.5); LYMPHOCYTES % (AUTO) 22.2 % (13-45); MEAN CORPUSCULAR HEMOGLOBIN 28.1 pg (27.0-33.4); MEAN CORPUSCULAR HGB CONC 32.2 g/dL (32.0-36.0); MEAN CORPUSCULAR VOLUME 87 fl (80-97); MONOCYTES % (AUTO) 3.9 % (3-13); PLATELET COUNT 156 10^3/uL (150-450); RED BLOOD COUNT 4.13 10^6/uL (3.72-5.28); RED CELL DISTRIBUTION WIDTH 15.6 % (11.5-14.0); SEGMENTED NEUTROPHILS % (AUTO) 73.7 % (42-78); TOTAL CELLS COUNTED % (AUTO) 100 %; WHITE BLOOD COUNT 4.6 10^3/uL (4.0-10.5)
[2018-04-09 06:44] LABS: ANION GAP 10 (5-19); BLOOD UREA NITROGEN 25 mg/dL (7-20); CALCIUM 9.5 mg/dL (8.4-10.2); CARBON DIOXIDE 29 mmol/L (22-30); CHLORIDE 104 mmol/L (98-107); GLUCOSE 173 mg/dL (75-110); POTASSIUM 3.8 mmol/L (3.6-5.0); SODIUM 142.6 mmol/L (137-145)
[2018-04-09] MEDS: IPRATROPIUM/ALBUTEROL 0.5-2.5 MG/3 ML AMPUL NEB SCH ×4 (09:19→20:14)
[2018-04-09] MEDS: LABETALOL HCL 200 MG TABLET PO SCH ×2 (09:49→21:47)
[2018-04-09] MEDS: CLOPIDOGREL BISULFATE 75 MG TABLET PO SCH (09:49)
[2018-04-09] MEDS: VALSARTAN 160 MG TABLET PO SCH (09:49)
[2018-04-09] MEDS: CLONIDINE HCL 0.1 MG TABLET PO SCH ×2 (09:49→21:46)
[2018-04-09] MEDS: FUROSEMIDE INJ/PF 20 MG/2 ML SDV IV SCH (09:50)
[2018-04-09] MEDS: AMLODIPINE BESYLATE 10 MG TABLET PO SCH (09:50)
[2018-04-09] MEDS: ESCITALOPRAM OXALATE 10 MG TABLET PO SCH (09:50)
[2018-04-09] MEDS: ARIPIPRAZOLE 5 MG TABLET PO SCH (09:50)
[2018-04-09] MEDS: DOCUSATE SODIUM 100 MG CAPSULE PO SCH ×2 (09:50→18:37)
[2018-04-09] MEDS: ENOXAPARIN SODIUM INJ 40 MG/0.4 ML DISP.SYRIN SUBCUT SCH (09:58)
--- NOTE | 2018-04-09 21:30 | PDOC PROGRESS REPORT ---
Subjective Progress Note for:: 04/09/18 Subjective:: Patient seen by the bedside, the serum BMP normal this virtually rule out CHF as a potential cause of the wheezing, she had bedside spirometry today,. She was seen by the bedside there is less wheezing today, compared to yesterday Reason For Visit: COPD ACUTE Physical Exam Vital Signs: Temp Pulse Resp BP Pulse Ox 98.2 F 66 16 127/77 H 98 04/09/18 20:22 04/09/18 20:22 04/09/18 20:22 04/09/18 20:22 04/09/18 20:22 Intake & Output 04/08/18 04/09/18 04/10/18 06:59 06:59 06:59 Intake Total 1218 1214 1388 Balance 1218 1214 1388 Weight 136.8 kg 138.2 kg General appearance: PRESENT: no acute distress Eye exam: PRESENT: PERRLA Respiratory exam: PRESENT: wheezes Cardiovascular exam: PRESENT: +S1, +S2 GI/Abdominal exam: PRESENT: soft Neurological exam: PRESENT: alert, motor sensory deficit Results Laboratory Results: 04/09/18 05:33 04/09/18 05:33 04/09/18 04/09/18 05:33 05:33 WBC 4.6 RBC 4.13 Hgb 11.6 L Hct 36.0 MCV 87 MCH 28.1 MCHC 32.2 RDW 15.6 H Plt Count 156 Seg Neutrophils % 73.7 Lymphocytes % 22.2 Monocytes % 3.9 Eosinophils % 0.0 Basophils % 0.2 Absolute Neutrophils 3.4 Absolute Lymphocytes 1.0 Absolute Monocytes 0.2 Absolute Eosinophils 0.0 Absolute Basophils 0.0 Sodium 142.6 Potassium 3.8 Chloride 104 Carbon Dioxide 29 Anion Gap 10 BUN 25 H Creatinine 0.95 Est GFR ( Amer) > 60 Est GFR (Non-Af Amer) 59 L Glucose 173 H Calcium 9.5 04/06/18 04/06/18 04/06/18 08:55 08:55 12:50 Creatine Kinase 426 H 464 H CK-MB (CK-2) 1.20 Troponin I < 0.012 NT-Pro-B Natriuret Pep 35 04/06/18 04/06/18 04/06/18 12:50 17:30 17:30 Creatine Kinase 519 H CK-MB (CK-2) 1.28 1.44 Troponin I < 0.012 0.014 NT-Pro-B Natriuret Pep 04/06/18 04/06/18 04/07/18 23:27 23:27 04:49 Creatine Kinase 523 H CK-MB (CK-2) 1.28 Troponin I 0.022 NT-Pro-B Natriuret Pep 118 04/08/18 22:20 Creatine Kinase CK-MB (CK-2) Troponin I NT-Pro-B Natriuret Pep 144 Impressions: Chest X-Ray 04/06/18 00:00 IMPRESSION: NO ACUTE RADIOGRAPHIC FINDING IN THE CHEST. Chest/Abdomen CTA 04/06/18 00:00 IMPRESSION: NORMAL CTA OF THE CHEST. NO PULMONARY EMBOLI. Assessment & Plan - Diagnosis (1) Wheezing Is this a current diagnosis for this admission?: Yes Plan: This is most likely acute bronchospastic disease (2) History of cerebrovascular accident with residual deficit Is this a current diagnosis for this admission?: Yes (3) Morbid obesity due to excess calories Is this a current diagnosis for this admission?: Yes (4) Hypertension Qualifiers: Hypertension type: essential hypertension Qualified Code(s): I10 - Essential (primary) hypertension Is this a current diagnosis for this admission?: Yes (5) Bronchitis, acute, with bronchospasm Is this a current diagnosis for this admission?: Yes Plan: Continue IV Solu-Medrol,Bronchodilators
[2018-04-09] MEDS: ATORVASTATIN CALCIUM 80 MG TABLET PO SCH (21:46)
[2018-04-09] MEDS: FLUTICASONE NASAL SPRAY 50 MCG/SPRY 120 SPRAY/16 GM NASL SCH (21:48)
[2018-04-10] MEDS: METHYLPREDNISOLONE INJ 40 MG/1 ML SDV IV SCH ×2 (05:37→14:18)
[2018-04-10] MEDS: HYDRALAZINE HCL 50 MG TABLET PO SCH ×3 (05:38→21:04)
[2018-04-10] MEDS: GABAPENTIN 300 MG CAPSULE PO SCH ×3 (05:38→21:02)
[2018-04-10 06:16] LABS: ABSOLUTE LYMPHOCYTES (AUTO) 1.2 10^3/uL (0.5-4.7); ABSOLUTE MONOCYTES (AUTO) 0.4 10^3/uL (0.1-1.4); HEMATOCRIT 34.8 % (36.0-47.0); HEMOGLOBIN 11.5 g/dL (12.0-15.5); LYMPHOCYTES % (AUTO) 13.8 % (13-45); MEAN CORPUSCULAR HEMOGLOBIN 28.6 pg (27.0-33.4); MEAN CORPUSCULAR HGB CONC 32.9 g/dL (32.0-36.0); MEAN CORPUSCULAR VOLUME 87 fl (80-97); MONOCYTES % (AUTO) 4.6 % (3-13); PLATELET COUNT 173 10^3/uL (150-450); RED BLOOD COUNT 4.01 10^6/uL (3.72-5.28); RED CELL DISTRIBUTION WIDTH 15.5 % (11.5-14.0); SEGMENTED NEUTROPHILS % (AUTO) 81.6 % (42-78); TOTAL CELLS COUNTED % (AUTO) 100 %; WHITE BLOOD COUNT 8.6 10^3/uL (4.0-10.5)
[2018-04-10 06:31] LABS: ANION GAP 8 (5-19); BLOOD UREA NITROGEN 31 mg/dL (7-20); CALCIUM 9.7 mg/dL (8.4-10.2); CARBON DIOXIDE 30 mmol/L (22-30); CHLORIDE 104 mmol/L (98-107); GLUCOSE 145 mg/dL (75-110); POTASSIUM 3.8 mmol/L (3.6-5.0); SODIUM 142.2 mmol/L (137-145)
[2018-04-10] MEDS: IPRATROPIUM/ALBUTEROL 0.5-2.5 MG/3 ML AMPUL NEB SCH ×4 (09:04→20:18)
[2018-04-10] MEDS: ENOXAPARIN SODIUM INJ 40 MG/0.4 ML DISP.SYRIN SUBCUT SCH (10:34)
[2018-04-10] MEDS: FUROSEMIDE INJ/PF 20 MG/2 ML SDV IV SCH (10:34)
[2018-04-10] MEDS: CLOPIDOGREL BISULFATE 75 MG TABLET PO SCH (10:34)
[2018-04-10] MEDS: VALSARTAN 160 MG TABLET PO SCH (10:34)
[2018-04-10] MEDS: CLONIDINE HCL 0.1 MG TABLET PO SCH ×2 (10:34→21:03)
[2018-04-10] MEDS: LORATADINE 10 MG TABLET PO SCH (10:34)
[2018-04-10] MEDS: ESCITALOPRAM OXALATE 10 MG TABLET PO SCH (10:34)
[2018-04-10] MEDS: ARIPIPRAZOLE 5 MG TABLET PO SCH (10:35)
[2018-04-10] MEDS: AMLODIPINE BESYLATE 10 MG TABLET PO SCH (10:35)
[2018-04-10] MEDS: DOCUSATE SODIUM 100 MG CAPSULE PO SCH ×2 (10:35→18:18)
[2018-04-10] MEDS: LABETALOL HCL 200 MG TABLET PO SCH ×2 (10:35→21:02)
[2018-04-10] MEDS: FLUTICASONE NASAL SPRAY 50 MCG/SPRY 120 SPRAY/16 GM NASL SCH ×2 (10:45→21:05)
[2018-04-10] MEDS ORDERED: IPRATROPIUM/ALBUTEROL 0.5-2.5 MG/3 ML AMPUL NEB PRN (17:40)
--- NOTE | 2018-04-10 17:55 | PDOC TRANSFER SUMMARY ---
General - Admit/Disc Date/PCP Admission Date/Primary Care Provider: 04/06/18 11:25 JUDY GONGORA MD Discharge Date: 04/10/18 - Discharge Diagnosis (1) COPD with acute exacerbation Is this a current diagnosis for this admission?: Yes (2) Mixed acid base balance disorder Is this a current diagnosis for this admission?: Yes (3) History of cerebrovascular accident with residual deficit Is this a current diagnosis for this admission?: Yes (4) Morbid obesity due to excess calories Is this a current diagnosis for this admission?: Yes (5) Hypertension Is this a current diagnosis for this admission?: Yes - Additional Information Resuscitation Status: Full Code Prescriptions: Docusate Sodium [Colace 100 mg Capsule] 100 mg PO BID #990 capsule Loratadine [Claritin 10 mg Tablet] 10 mg PO DAILY #30 tablet Prednisone [Deltasone 20 mg Tablet] 40 mg PO DAILY #5 tablet Valsartan [Diovan 160 mg Tablet] 320 mg PO DAILY #999 tablet Home Medications: Amlodipine/Valsartan [Exforge 10-320 mg Tablet] 1 tab PO DAILY 12/08/17 Aripiprazole [Abilify] 15 mg PO DAILY 12/08/17 Chlorthalidone [Chlorthalidone 50 mg Tablet] 50 mg PO DAILY 12/08/17 Clonidine HCl [Catapres 0.3 mg Tablet] 0.3 mg PO Q12 12/08/17 Clopidogrel Bisulfate [Plavix 75 mg Tablet] 75 mg PO DAILY 12/08/17 Doxepin HCl [Silenor] 6 mg PO QHS 12/08/17 Escitalopram Oxalate [Lexapro 10 mg Tablet] 10 mg PO DAILY 12/08/17 Gabapentin [Neurontin 300 mg Capsule] 300 mg PO Q8 12/08/17 Hydralazine HCl [Apresoline 50 mg Tablet] 50 mg PO Q8 12/08/17 Labetalol HCl [Normodyne 200 mg Tablet] 200 mg PO Q12 12/08/17 Hydrocodone/Acetaminophen [Hydrocodone-Acetamin 10-325 mg] 1 tab PO Q8HP PRN #90 tablet 12/14/17 Albuterol Sulfate [Ventolin Hfa 8 gm Mdi (1 Mdi/ER Disp)] 1 puff IH Q6HP PRN 04/06/18 Atorvastatin Calcium [Lipitor] 80 mg PO HSP 04/06/18 Ipratropium/Albuterol Sulfate [Duoneb 3 ml Ampul] 3 ml NEB RTQ6 PRN 04/06/18 Docusate Sodium [Colace 100 mg Capsule] 100 mg PO BID #990 capsule 04/10/18 Fluticasone Propionate [Flonase Nasal Thorndike 50 Mcg/Thorndike 16 gm] 2 spray NASL Q12 spray.pump 04/10/18 Fluticasone/Umeclidin/Vilanter [Trelegy 100-62.5-25 Mcg Ellipta 14 Dose/Dpi] 1 inh IH DAILY inhaler 04/10/18 Loratadine [Claritin 10 mg Tablet] 10 mg PO DAILY #30 tablet 04/10/18 Prednisone [Deltasone 20 mg Tablet] 40 mg PO DAILY #5 tablet 04/10/18 Valsartan [Diovan 160 mg Tablet] 320 mg PO DAILY #999 tablet 04/10/18 History of Present Illness Admission Date/PCP: 04/06/18 11:25 JUDY GONGORA MD History of Present Illness: KOKO EWING is a 67 year old female, She was transferred from the halfway to the emergency room for evaluation of shortness of breath, she is presently in the halfway undergoing physical therapy and rehabilitation due to fracture femur that she sustained after a fall she underwent open reduction internal fixation of the fracture. In the emergency room she was evaluated CTA of the chest was done as part of the evaluation process pulmonary embolism was ruled out, she does not have a history of chronic obstructive lung disease in the emergency room it was felt that patient needed to be admitted to the hospital for further evaluation. Hospital Course Hospital Course: She was overtly wheezing in the hospital, the CT chest that was done did not demonstrate any pneumonia, she was treated with Solu-Medrol 60 mg IV every 8 hours, a bedside spirometry was obtained it demonstrated obstructive pattern the FEV1 /FVC ratio is less than 70 consistent with COPD. She has no smoking histo ry but she lives with smokers for many years she is probably a secondhand smoker. The arterial blood gas that was done was consistent with a mixed acid- base disorder, there was elevated PCO2 with compensatory bicarbonate.She was seen today by the bedside the wheezing has resolved, she will be transferred back to the halfway to continue 4 days of p.o. prednisone and also to be maintained on laba\Lama/steroid inhaler for maintenance therapy Physical Exam Vital Signs: Temp Pulse Resp BP Pulse Ox 97.7 F 66 18 167/71 H 96 04/10/18 13:02 04/10/18 16:46 04/10/18 16:46 04/10/18 15:43 04/10/18 16:46 Intake & Output 04/09/18 04/10/18 04/11/18 06:59 06:59 06:59 Intake Total 1214 1388 Balance 1214 1388 Weight 138.2 kg 138.2 kg General appearance: PRESENT: no acute distress Head exam: PRESENT: atraumatic, normocephalic Eye exam: PRESENT: conjunctiva pink, EOMI, PERRLA Respiratory exam: PRESENT: clear to auscultation audelia Cardiovascular exam: PRESENT: RRR, +S1, +S2 Pulses: PRESENT: normal dorsalis pedis pul Vascular exam: PRESENT: normal capillary refill GI/Abdominal exam: PRESENT: normal bowel sounds, soft Rectal exam: PRESENT: deferred Extremities exam: PRESENT: full ROM Neurological exam: PRESENT: alert Psychiatric exam: PRESENT: appropriate affect, normal mood Skin exam: PRESENT: dry, intact, warm Results Laboratory Results: 04/10/18 05:40 04/10/18 05:40 04/10/18 04/10/18 05:40 05:40 WBC 8.6 RBC 4.01 Hgb 11.5 L Hct 34.8 L MCV 87 MCH 28.6 MCHC 32.9 RDW 15.5 H Plt Count 173 Seg Neutrophils % 81.6 H Lymphocytes % 13.8 Monocytes % 4.6 Eosinophils % 0.0 Basophils % 0.0 Absolute Neutrophils 7.0 Absolute Lymphocytes 1.2 Absolute Monocytes 0.4 Absolute Eosinophils 0.0 Absolute Basophils 0.0 Sodium 142.2 Potassium 3.8 Chloride 104 Carbon Dioxide 30 Anion Gap 8 BUN 31 H Creatinine 0.88 Est GFR ( Amer) > 60 Est GFR (Non-Af Amer) > 60 Glucose 145 H Calcium 9.7 04/06/18 04/06/18 04/06/18 08:55 08:55 12:50 Creatine Kinase 426 H 464 H CK-MB (CK-2) 1.20 Troponin I < 0.012 NT-Pro-B Natriuret Pep 35 0104/06/18 04/06/18 12:50 17:30 17:30 Creatine Kinase 519 H CK-MB (CK-2) 1.28 1.44 Troponin I < 0.012 0.014 NT-Pro-B Natriuret Pep 04/06/18 04/06/18 04/07/18 23:27 23:27 04:49 Creatine Kinase 523 H CK-MB (CK-2) 1.28 Troponin I 0.022 NT-Pro-B Natriuret Pep 118 04/08/18 22:20 Creatine Kinase CK-MB (CK-2) Troponin I NT-Pro-B Natriuret Pep 144 Impressions: Chest X-Ray 04/06/18 00:00 IMPRESSION: NO ACUTE RADIOGRAPHIC FINDING IN THE CHEST. Chest/Abdomen CTA 04/06/18 00:00 IMPRESSION: NORMAL CTA OF THE CHEST. NO PULMONARY EMBOLI. Qualifiers - * PATIENT BEING DISCHARGED WITH ANY OF THE FOLLOWING DIAGNOSIS: No
[2018-04-10] MEDS ORDERED: ALBUTEROL SULFATE HFA (90 MCG/PUFF) 200 PUFF/8.5 GM MDI IH PRN (21:00)
[2018-04-10] MEDS: ATORVASTATIN CALCIUM 80 MG TABLET PO SCH (21:03)
[2018-04-10] MEDS: PREDNISONE 20 MG TABLET PO SCH (21:04)
[2018-04-10] MEDS: FLUTICASONE/UMECLIDIN/VILANTER 100-62.5-25 MCG/DOSE IH SCH (21:11)
[2018-04-11] MEDS: HYDRALAZINE HCL 50 MG TABLET PO SCH ×2 (05:46→13:39)
[2018-04-11] MEDS: GABAPENTIN 300 MG CAPSULE PO SCH ×2 (05:47→13:38)
[2018-04-11] MEDS: IPRATROPIUM/ALBUTEROL 0.5-2.5 MG/3 ML AMPUL NEB SCH ×3 (09:45→16:59)
[2018-04-11] MEDS ORDERED: CHLORTHALIDONE 25 MG TABLET PO SCH (10:00)
[2018-04-11] MEDS: FLUTICASONE NASAL SPRAY 50 MCG/SPRY 120 SPRAY/16 GM NASL SCH (10:38)
[2018-04-11] MEDS: ARIPIPRAZOLE 5 MG TABLET PO SCH (10:39)
[2018-04-11] MEDS: PREDNISONE 20 MG TABLET PO SCH (10:39)
[2018-04-11] MEDS: LABETALOL HCL 200 MG TABLET PO SCH (10:39)
[2018-04-11] MEDS: AMLODIPINE BESYLATE 10 MG TABLET PO SCH (10:40)
[2018-04-11] MEDS: CLONIDINE HCL 0.1 MG TABLET PO SCH (10:40)
[2018-04-11] MEDS: LORATADINE 10 MG TABLET PO SCH (10:40)
[2018-04-11] MEDS: ESCITALOPRAM OXALATE 10 MG TABLET PO SCH (10:40)
[2018-04-11] MEDS: VALSARTAN 160 MG TABLET PO SCH (10:40)
[2018-04-11] MEDS: DOCUSATE SODIUM 100 MG CAPSULE PO SCH ×2 (10:40→17:35)
[2018-04-11] MEDS: CLOPIDOGREL BISULFATE 75 MG TABLET PO SCH (10:40)
[2018-04-11] MEDS: ENOXAPARIN SODIUM INJ 40 MG/0.4 ML DISP.SYRIN SUBCUT SCH (10:45)
[2018-04-11] MEDS: FUROSEMIDE INJ/PF 20 MG/2 ML SDV IV SCH (10:45)
[2018-04-11 15:57] VITALS: BP 172/88
[2018-04-11] MEDS: FLUTICASONE/UMECLIDIN/VILANTER 100-62.5-25 MCG/DOSE IH SCH (17:35)
== END 2018-04-11 19:45 | DRG 191 ==
LOC: ER 08:32 → EH 11:25 → OBSVTOIN 11:25 → 3S 15:02
PROVIDERS: ADMIT Internal Medicine; ATTEND Internal Medicine
PROC: 3E0F3GC Introduction of Other Therapeutic Substance into Respiratory Tract, Percutaneous Approach (ICD-10-PCS; principal; 2018-04-06)
DX: J44.1 Chronic obstructive pulmonary disease with (acute) exacerbation (principal); E87.4 Mixed disorder of acid-base balance; I69.351 Hemiplegia and hemiparesis following cerebral infarction affecting right dominant side; I50.32 Chronic diastolic (congestive) heart failure; M84.452A Pathological fracture, left femur, initial encounter for fracture; I11.0 Hypertensive heart disease with heart failure; E66.01 Morbid (severe) obesity due to excess calories; F01.50 Vascular dementia, unspecified severity, without behavioral disturbance, psychotic disturbance, mood disturbance, and anxiety; E78.5 Hyperlipidemia, unspecified; K21.9 Gastro-esophageal reflux disease without esophagitis; M19.90 Unspecified osteoarthritis, unspecified site; F32.9 Major depressive disorder, single episode, unspecified; D64.9 Anemia, unspecified; J20.9 Acute bronchitis, unspecified; J44.0 Chronic obstructive pulmonary disease with (acute) lower respiratory infection; I44.7 Left bundle-branch block, unspecified; F41.9 Anxiety disorder, unspecified; Z77.22 Contact with and (suspected) exposure to environmental tobacco smoke (acute) (chronic); Z79.52 Long term (current) use of systemic steroids; Z79.02 Long term (current) use of antithrombotics/antiplatelets; Z79.51 Long term (current) use of inhaled steroids; Z87.891 Personal history of nicotine dependence; Z82.61 Family history of arthritis; Z82.3 Family history of stroke; Z82.49 Family history of ischemic heart disease and other diseases of the circulatory system
CPT/HCPCS: 36415; 71046; 71275; 80048; 80053; 82550; 82553; 82803; 83735; 83880; 84484; 85025; 87040; 87804; 93005; 93010; 94060; 94640; 99285; J0692; J0696; J1650; J1940; J1956; J2920; J3490; J7512; J7620

== ENCOUNTER 2018-06-02 15:42 | Emergency (ER) | payer MEDICARE, MEDICAID ==
--- NOTE | 2018-06-02 17:23 | ER Document Report ---
ED General - General Chief Complaint: Shortness Of Breath Stated Complaint: WEIGHT GAIN Time Seen by Provider: 06/02/18 15:53 Primary Care Provider: JUDY GONGORA MD [Primary Care Provider] - Follow up as needed Notes: 67-year-old female with history of CHF and COPD brought in by EMS for respiratory issues and weight gain that has been going on for 3 days. Per patient she is at her baseline respiratory status but states the main reason she was brought in was for approximately a 20 pound weight gain in the last week. EMS states she heard crackles bilateral lower lobes. Patient denies any fever or recent illness, cough, wheezing, abdominal pain, nausea, vomiting, diarrhea. Patient has no other complaints TRAVEL OUTSIDE OF THE [place] IN LAST 30 DAYS: No - Related Data Allergies/Adverse Reactions: celecoxib [From Celebrex] Allergy (Unknown, Verified 06/02/18 16:03) ibuprofen [From Motrin] Allergy (Unknown, Verified 06/02/18 16:03) Past Medical History - Social History Smoking Status: Never Smoker Frequency of alcohol use: None Drug Abuse: None Family History: Arthritis, CVA, DM, Hyperlipidemia, Hypertension Patient has suicidal ideation: No Patient has homicidal ideation: No - Past Medical History Cardiac Medical History: Reports: Hx Congestive Heart Failure, Hx Hypercholesterolemia, Hx Hypertension, Hx Heart Murmur Denies: Hx Atrial Fibrillation, Hx Coronary Artery Disease, Hx Heart Attack Pulmonary Medical History: Reports: Hx COPD Denies: Hx Asthma, Hx Bronchitis, Hx Pneumonia, Hx Tuberculosis Neurological Medical History: Reports: Hx Cerebrovascular Accident - mutliple, PT STATES SHE HAS HAD 25 RODRÍGUEZ.. Denies: Hx Seizures Endocrine Medical History: Renal/ Medical History: Denies: Hx End Stage Renal Disease, Hx Kidney Stones, Hx Peritoneal Dialysis Malignancy Medical History: GI Medical History: Reports: Hx Gastroesophageal Reflux Disease. Denies: Hx Hiatal Hernia, Hx Pancreatitis, Hx Ulcer Musculoskeletal Medical History: Reports Hx Arthritis, Reports Hx Musculoskeletal Deformity Psychiatric Medical History: Reports: Hx Anxiety, Hx Bipolar Disorder, Hx Dementia - Multi-infarct, Hx Depression Denies: Hx Schizophrenia Traumatic Medical History: Infectious Medical History: Past Surgical History: Reports: Hx Orthopedic Surgery, Hx Tubal Ligation. Denies: Hx Appendectomy, Hx Bowel Surgery, Hx Section, Hx Cholecystectomy, Hx Hysterectomy, Hx Mastectomy, Hx Tonsillectomy - Immunizations Immunizations up to date: Yes Hx Diphtheria, Pertussis, Tetanus Vaccination: Yes - STATES SHE HAS PNEUMONIA VACCINE IN 2014. Hx Pneumococcal Vaccination: 11/17/09 Review of Systems - Review of Systems Constitutional: See HPI EENT: No symptoms reported Cardiovascular: See HPI Respiratory: See HPI Gastrointestinal: See HPI Genitourinary: No symptoms reported Female Genitourinary: No symptoms reported Musculoskeletal: No symptoms reported Skin: No symptoms reported Hematologic/Lymphatic: No symptoms reported Neurological/Psychological: No symptoms reported Physical Exam - Vital signs Vitals: Resp Pulse Ox 23 H 94 06/02/18 16:00 06/02/18 16:00 - Notes Notes: PHYSICAL EXAMINATION: Reviewed vital signs and charting by RN GENERAL: Alert, interacts well. No acute distress. HEAD: Normocephalic, atraumatic. EYES: Pupils equal, round. Extraocular movements intact. ENT: Oral mucosa moist, tongue midline. NECK: Trachea midline. LUNGS: Diminished breath sounds auscultating anteriorly and laterally as patient is obese. Inspiratory crackles heard. HEART: Regular rate and rhythm. No murmur. Gross bilateral lower extremity edema with 3+ pitting. ABDOMEN: soft, non-tender. Non-distended. Bowel sounds present. EXTREMITIES: Fairly immobile as patient is obese lying in the bed, do not know baseline. PSYCH: Normal affect, normal mood. SKIN: Warm, dry, normal turgor. No rashes or lesions noted. Course - Re-evaluation Re-evalutation: 06/02/18 17:23 Obese patient, inspiratory crackles heard. Chest x-ray will be ordered. Get some basic lab work. We will most likely treat with IV Lasix. 06/02/18 19:[address] Stewart at the bedside and discussed patient with him he knows her v jailene well. Patient does have a 10 kg weight gain over the last 2 months. This bilateral lower extremity edema is slightly worse but is always present. Chest x-ray was unremarkable for interstitial edema or any evidence of fluid overload. Basic lab work was completed and there is no leukocytosis, acute anemia, or gross electrolyte derangements. At this time after discussing with Dr. Stewart the patient is stable to return back to her half-way. Vital signs have been stable throughout. - Vital Signs Vital signs: Temp Pulse Resp BP Pulse Ox 98.8 F 88 20 177/91 H 97 06/02/18 16:04 06/02/18 16:04 06/02/18 17:01 06/02/18 17:00 06/02/18 17:01 - Laboratory Result Diagrams: 06/02/18 18:10 06/02/18 18:10 Laboratory results interpreted by me: 06/02/18 06/02/18 18:10 18:10 RDW 16.6 H Potassium 3.5 L Glucose 138 H Discharge - Discharge Clinical Impression: Bilateral lower extremity edema, Shortness of breath Condition: Good Disposition: SNF-Other Additional Instructions: You were seen in the emergency department this evening for bilateral leg edema. Is important to monitor your weights as you have had a couple of months. Your breath sounds were clear and we are not concerned that you having a COPD exacerbation. If you become very sleepy or lethargic, have severe respiratory difficulty, severe chest pain, pass out, or have any other concerning symptoms please merely return to the emergency department. Referrals: JUDY GONGORA MD [Primary Care Provider] - Follow up as needed
--- NOTE | 2018-06-02 18:02 | RADIOLOGY REPORT (SQ) ---
EXAM DESCRIPTION: CHEST SINGLE VIEW COMPLETED DATE/TIME: 06/02/2018 5:49 pm REASON FOR STUDY: SOB COMPARISON: 04/06/2018 EXAM PARAMETERS: NUMBER OF VIEWS: One view. TECHNIQUE: Single frontal radiographic view of the chest acquired. RADIATION DOSE: NA LIMITATIONS: None. FINDINGS: LUNGS AND PLEURA: No opacities, masses or pneumothorax. No pleural effusion. MEDIASTINUM AND HILAR STRUCTURES: No masses. Contour normal. HEART AND VASCULAR STRUCTURES: Heart size is at upper limits of normal, however this may be at least partially due to artifact from AP projection. Calcification seen in the aorta. BONES: No acute findings. HARDWARE: None in the chest. OTHER: No other significant finding. IMPRESSION: Borderline cardiomegaly, however this may be due to artifact from AP projection. No tico dence of acute cardiopulmonary process. TECHNICAL DOCUMENTATION: JOB ID: [id number] [employer]- All Rights Reserved Reading location - IP/workstation name: [email or web address]
[2018-06-02 19:12] LABS: ABSOLUTE EOSINOPHILS # (AUTO) 0.1 10^3/uL (0.0-0.6); ABSOLUTE LYMPHOCYTES (AUTO) 2.1 10^3/uL (0.5-4.7); ABSOLUTE MONOCYTES (AUTO) 0.6 10^3/uL (0.1-1.4); BASOPHILS % (AUTO) 0.5 % (0-2); EOSINOPHILS % (AUTO) 1.9 % (0-6); HEMATOCRIT 37.7 % (36.0-47.0); HEMOGLOBIN 12.1 g/dL (12.0-15.5); MEAN CORPUSCULAR HEMOGLOBIN 28.2 pg (27.0-33.4); MEAN CORPUSCULAR HGB CONC 32.1 g/dL (32.0-36.0); MEAN CORPUSCULAR VOLUME 88 fl (80-97); MONOCYTES % (AUTO) 8.2 % (3-13); PLATELET COUNT 270 10^3/uL (150-450); RED BLOOD COUNT 4.29 10^6/uL (3.72-5.28); RED CELL DISTRIBUTION WIDTH 16.6 % (11.5-14.0); SEGMENTED NEUTROPHILS % (AUTO) 58.4 % (42-78); TOTAL CELLS COUNTED % (AUTO) 100 %; WHITE BLOOD COUNT 6.8 10^3/uL (4.0-10.5)
[2018-06-02 19:15] LABS: ALANINE AMINOTRANSFERASE 35 U/L (9-52); ALKALINE PHOSPHATASE 92 U/L (38-126); ANION GAP 10 (5-19); ASPARTATE AMINO TRANSFERASE 29 U/L (14-36); BILIRUBIN,DIRECT 0.2 mg/dL (0.0-0.4); BILIRUBIN,TOTAL 0.4 mg/dL (0.2-1.3); BLOOD UREA NITROGEN 15 mg/dL (7-20); CALCIUM 10.2 mg/dL (8.4-10.2); CARBON DIOXIDE 29 mmol/L (22-30); CHLORIDE 104 mmol/L (98-107); GLUCOSE 138 mg/dL (75-110); POTASSIUM 3.5 mmol/L (3.6-5.0); SODIUM 143.3 mmol/L (137-145); TOTAL PROTEIN 7.4 g/dL (6.3-8.2)
[2018-06-02 23:43] VITALS: BP 219/92
== END 2018-06-02 23:59 ==
LOC: ER 15:42
DX: R60.0 Localized edema (principal); R06.02 Shortness of breath; I50.9 Heart failure, unspecified; J44.9 Chronic obstructive pulmonary disease, unspecified; I11.0 Hypertensive heart disease with heart failure
CPT/HCPCS: 36415; 71045; 80053; 85025; 99285

== ENCOUNTER 2019-11-18 17:23 | Emergency (ER) | payer MEDICARE, MEDICAID ==
[2019-11-18 18:44] LABS: INTERNATIONAL RATION (INR) 0.97; PROTHROMBIN TIME 13.1 SEC (11.4-15.4)
[2019-11-18 18:46] LABS: ABSOLUTE EOSINOPHILS # (AUTO) 0.1 10^3/uL (0.0-0.6); ABSOLUTE LYMPHOCYTES (AUTO) 3.4 10^3/uL (0.5-4.7); ABSOLUTE MONOCYTES (AUTO) 0.6 10^3/uL (0.1-1.4); ABSOLUTE NEUT (AUTO) 2.9 10^3/uL (1.7-8.2); BASOPHILS % (AUTO) 0.3 % (0-2); HEMATOCRIT 38.8 % (36.0-47.0); HEMOGLOBIN 12.5 g/dL (12.0-15.5); MEAN CORPUSCULAR HEMOGLOBIN 29.8 pg (27.0-33.4); MEAN CORPUSCULAR HGB CONC 32.2 g/dL (32.0-36.0); MEAN CORPUSCULAR VOLUME 93 fl (80-97); MONOCYTES % (AUTO) 7.9 % (3-13); PLATELET COUNT 198 10^3/uL (150-450); RED CELL DISTRIBUTION WIDTH 16.8 % (11.5-14.0); SEGMENTED NEUTROPHILS % (AUTO) 41.8 % (42-78); TOTAL CELLS COUNTED % (AUTO) 100 %
[2019-11-18 18:55] LABS: ALBUMIN 4.4 g/dL (3.5-5.0); ALKALINE PHOSPHATASE 77 U/L (38-126); ANION GAP 10 (5-19); ASPARTATE AMINO TRANSFERASE 35 U/L (14-36); BILIRUBIN,DIRECT 0.4 mg/dL (0.0-0.4); BILIRUBIN,TOTAL 0.6 mg/dL (0.2-1.3); BLOOD UREA NITROGEN 22 mg/dL (7-20); CALCIUM 9.4 mg/dL (8.4-10.2); CARBON DIOXIDE 26 mmol/L (22-30); CHLORIDE 105 mmol/L (98-107); GLUCOSE 114 mg/dL (75-110); POTASSIUM 4.1 mmol/L (3.6-5.0); TOTAL PROTEIN 7.8 g/dL (6.3-8.2)
[2019-11-18 19:09] LABS: CREATINE KINASE MB 2.12 ng/mL (<4.55)
[2019-11-18 19:13] LABS: TROPONIN I < 0.012 ng/mL
--- NOTE | 2019-11-18 19:20 | RADIOLOGY REPORT (SQ) ---
EXAM DESCRIPTION: CT HEAD WITHOUT IMAGES COMPLETED DATE/TIME: 11/18/2019 5:56 pm REASON FOR STUDY: ANAYA COMPARISON: 07/08/2014. TECHNIQUE: Axial images acquired through the brain without intravenous contrast. Images reviewed wi th bone, brain and subdural windows. Additional sagittal and coronal reconstructions were generated. Images stored on PACS. All CT scanners at this facility use dose modulation, iterative reconstruction, and/or weight based d osing when appropriate to reduce radiation dose to as low as reasonably achievable (ALARA). [facility]: Dose Right [facility]: CareDose [facility]: Dose Right [facility]: Teradose 4D [facility]: [employer] RADIATION DOSE: CT Rad equipment meets quality standard of care and radiation dose reduction techniq ues were employed. CTDIvol: 53.2 mGy. DLP: 964 mGy-cm. mGy. LIMITATIONS: None. FINDINGS: VENTRICLES: Normal size and contour. CEREBRUM: No masses. No hemorrhage. No midline shift. No evidence for acute infarction. Normal gra y-white matter differentiation. Mild patchy periventricular and deep white matter hypodense attenuat ion consistent with chronic small vessel ischemic change, stable. Chronic lacunar infarct left coron a radiata, stable. There is intracranial atherosclerosis. CEREBELLUM: No masses. No hemorrhage. No alteration of density. No evidence for acute infarction. EXTRAAXIAL SPACES: No fluid collections. No masses. ORBITS AND GLOBE: No intra- or extraconal masses. Normal contour of globe without masses. CALVARIUM: No fracture. PARANASAL SINUSES: No fluid or mucosal thickening. SOFT TISSUES: No mass or hematoma. OTHER: No other significant finding. IMPRESSION: 1. No acute intracranial hemorrhage, mass, or evidence of acute territorial infarct. 2. Mild to moderate chronic small vessel ischemic change and intracranial atherosclerosis, stable. 3. Chronic lacunar infarct left rees radiata, stable. EVIDENCE OF ACUTE STROKE: NO. COMMENT: Quality ID # [id number]: Final reports with documentation of one or more dose reduction techniques (e.g., Automated exposure control, adjustment of the mA and/or kV according to patient size, use of iterative reconstruction technique) TECHNICAL DOCUMENTATION: JOB ID: [id number] 2010 [employer]- All Rights Reserved Reading location - IP/workstation name: [email or web address]
[2019-11-18 19:21] LABS: APPEARANCE,URINE CLEAR; BILIRUBIN,URINE SMALL (NEGATIVE); GLUCOSE, URINE NEGATIVE (NEGATIVE); KETONES,URINE NEGATIVE (NEGATIVE); LEUKOCYTE ESTERASE,URINE NEGATIVE (NEGATIVE); NITRITE,URINE NEGATIVE (NEGATIVE); PROTEIN,URINE NEGATIVE (NEGATIVE); URINE SPECIFIC GRAVITY 1.023
[2019-11-18 19:25] LABS: COLOR,URINE YELLOW
--- NOTE | 2019-11-18 19:37 | ER Document Report ---
ED General - General Chief Complaint: Headache Stated Complaint: HEADACHE Primary Care Provider: JUDY GONGORA MD [Primary Care Provider] - Follow up as needed Information source: Patient Notes: Patient is a 69-year-old female presenting to the emergency department chief complaint of headache. Patient denies travel history trauma history or sick contacts. Patient does have a prior history of multiple CVAs with right-sided deficits. Patient is coming from a local senior living she is there because of a fall resulting in a fractured right ankle and until the patient can ambulate she is limited to senior living. Patient states headache started this morning around 10 AM. Patient denies nausea vomiting cough or cold type symptoms. TRAVEL OUTSIDE OF THE [place] IN LAST 30 DAYS: No - HPI Onset: This morning Onset/Duration: Sudden Quality of pain: Throbbing Severity: Moderate Pain Level: 2 Associated symptoms: denies: Diarrhea, Nausea, Vomiting, Shortness of breath, Sweating Exacerbated by: Denies Relieved by: Denies Similar symptoms previously: No Recently seen / treated by doctor: No - Related Data Allergies/Adverse Reactions: celecoxib [From Celebrex] Allergy (Unknown, Verified 11/18/19 17:42) ibuprofen [From Motrin] Allergy (Unknown, Verified 11/18/19 17:42) Home Medications: HTN med Past Medical History - General Information source: Patient, Relative - Social History Smoking Status: Never Smoker Chew tobacco use (# tins/day): No Frequency of alcohol use: None Drug Abuse: None Lives with: [facility] Family History: Arthritis, CVA, DM, Hyperlipidemia, Hypertension Patient has suicidal ideation: No Patient has homicidal ideation: No - Past Medical History Cardiac Medical History: Reports: Hx Congestive Heart Failure, Hx Hypercholesterolemia, Hx Hypertension, Hx Heart Murmur Denies: Hx Atrial Fibrillation, Hx Coronary Artery Disease, Hx Heart Attack Pulmonary Medical History: Reports: Hx COPD Denies: Hx Asthma, Hx Bronchitis, Hx Pneumonia, Hx Tuberculosis Neurological Medical History: Reports: Hx Cerebrovascular Accident - mutliple, PT STATES SHE HAS HAD 25 RODRÍGUEZ.. Denies: Hx Seizures, Hx Parkinson's Disease Endocrine Medical History: Renal/ Medical History: Denies: Hx End Stage Renal Disease, Hx Kidney Stones, Hx Peritoneal Dialysis Malignancy Medical History: GI Medical History: Reports: Hx Gastroesophageal Reflux Disease. Denies: Hx Hiatal Hernia, Hx Pancreatitis, Hx Ulcer Musculoskeletal Medical History: Reports Hx Arthritis, Reports Hx Musculoskeletal Deformity, Denies Hx Systemic Lupus Erythematosus Psychiatric Medical History: Reports: Hx Anxiety, Hx Bipolar Disorder, Hx Dementia - Multi-infarct, Hx Depression Denies: Hx Schizophrenia Traumatic Medical History: Infectious Medical History: Past Surgical History: Reports: Hx Orthopedic Surgery, Hx Tubal Ligation. Denies: Hx Appendectomy, Hx Bowel Surgery, Hx Section, Hx Cholecystectomy, Hx Hysterectomy, Hx Mastectomy, Hx Tonsillectomy - Immunizations Immunizations up to date: Yes Hx Diphtheria, Pertussis, Tetanus Vaccination: Yes - STATES SHE HAS PNEUMONIA VACCINE IN 2013. Hx Pneumococcal Vaccination: 11/17/09 Review of Systems - Review of Systems Constitutional: No symptoms reported EENT: Nose congestion, Nose discharge Cardiovascular: No symptoms reported Respiratory: No symptoms reported Gastrointestinal: No symptoms reported Genitourinary: No symptoms reported Female Genitourinary: No symptoms reported Musculoskeletal: No symptoms reported Skin: No symptoms reported Hematologic/Lymphatic: No symptoms reported Neurological/Psychological: Headaches -: Yes All other systems reviewed and negative Physical Exam - Vital signs Vitals: Temp 98.5 F 11/18/19 17:23 - Notes Notes: PHYSICAL EXAMINATION: GENERAL: Patient is a 69-year-old female presenting for headache patient is in no acute distress but does complain of a mild headache HEAD: Atraumatic, normocephalic. EYES: Pupils equal round and reactive to light, extraocular movements intact, sclera anicteric, conjunctiva are normal. ENT: nares patent, patient does have moderate sinus discharge and congestion simultaneously, oropharynx clear without exudates. Moist mucous membranes. NECK: Normal range of motion, supple without lymphadenopathy, no appreciable JVD LUNGS: Lungs demonstrate end expiratory wheezes HEART: Bradycardic rate and rhythm without murmurs ABDOMEN: Soft, morbidly obese however nontender, normal bowel sounds. No guarding, no rebound. No masses appreciated. EXTREMITIES: Patient has limited range of motion to the right extremities sensation is intact pulses are present, left extremities full range of motion, patient does have 1-2+ edema to lower extremities NEUROLOGICAL: No new focal deficits per patient she answers questions appropriately follows commands appropriately. SKIN: Warm, Dry, and intact. Normal turgor, no rashes or lesions noted. 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 I did speak with her primary care provider and he is in agreement with breathing treatment and Zyrtec and discharged back to the senior living facility. Laboratory and radiologic results demonstrate no acute findings other than a slight worsening of the patient's renal insufficiency. PCP states he will follow-up with the patient at the senior living in the next several days. I discussed this with the patient and her son and they are agreeable with care plan. 11/18/19 20:47 Breathing treatment did not make a significant amount of difference in the patient's breathing. 11/18/19 21:27 Portable chest x-ray read by radiology as negative for acute findings. The patient will be discharged to the senior living in stable condition - Vital Signs Vital signs: Temp Pulse Resp BP Pulse Ox 98.5 F 17 99 11/18/19 21:17 11/18/19 19:00 11/18/19 19:00 - Laboratory Result Diagrams: 11/18/19 18:18 11/18/19 18:18 Laboratory results interpreted by me: 11/18/19 11/18/19 11/18/19 18:18 18:18 18:32 RDW 16.8 H Lymph % (Auto) 48.0 H Seg Neutrophils % 41.8 L BUN 22 H Creatinine 1.67 H Est GFR ( Amer) 37 L Est GFR (MDRD) Non-Af 31 L Glucose 114 H Urine Bilirubin SMALL H Urine Urobilinogen 2.0 H - Diagnostic Test Radiology reviewed: Reports reviewed Discharge - Discharge Clinical Impression: Edema extremities, History of CVA (cerebrovascular accident), Morbid (severe) obesity due to excess calories, Wheezing Headache Qualifiers: Headache type: unspecified Headache chronicity pattern: acute headache Intractability: not intractable Qualified Code(s): R51 - Headache Condition: Stable Disposition: HOME, SELF-CARE Instructions: Headache ([facility]) Additional Instructions: Please follow-up with your family physician in the next couple of days. Return to the emergency department for worsening symptoms however at this point in time labs and radiologic studies do not demonstrate any significant abnormality. Referrals: JUDY GONGORA MD [Primary Care Provider] - Follow up as needed
[2019-11-18] MEDS ORDERED: IPRATROPIUM/ALBUTEROL 0.5-2.5 MG/3 ML AMPUL NEB ONE (20:00)
[2019-11-18] MEDS ORDERED: CETIRIZINE 10 MG TABLET PO ONE (20:21)
[2019-11-18] MEDS ORDERED: ACETAMINOPHEN 325 MG TABLET PO ONE (20:23)
--- NOTE | 2019-11-18 21:19 | RADIOLOGY REPORT (SQ) ---
EXAM DESCRIPTION: X-ray, single view of the chest CLINICAL HISTORY: 69 years Female, wheezing COMPARISON: Single view of the chest 06/02/2018 FINDINGS: Lungs: Lungs are clear. No focal consolidation. No pneumothorax or pleural effusion. Mediastinum: Heart size is mildly enlarged but the appearance is stable. Vascular calcifications are seen in the thoracic aorta. Bones: Degenerative arthritis is noted in the shoulders. IMPRESSION: Stable cardiomegaly. No pneumonia or edema.
[2019-11-18 22:59] VITALS: BP 131/91
== END 2019-11-18 22:57 | disposition short-term general hospital (02) ==
LOC: ER 17:23
DX: R51 Headache (principal); R09.81 Nasal congestion; J44.9 Chronic obstructive pulmonary disease, unspecified; R60.0 Localized edema; E66.01 Morbid (severe) obesity due to excess calories; I10 Essential (primary) hypertension; Z86.73 Personal history of transient ischemic attack (TIA), and cerebral infarction without residual deficits; Z88.8 Allergy status to other drugs, medicaments and biological substances
CPT/HCPCS: 94640; 99285; 36415; 82553; 85025; 85610; 80053; 81001; 84484; 71045; 70450; A9270 ×2

== ENCOUNTER → 2019-11-21 | Outpatient (CLI) | payer MEDICARE, MEDICAID ==
--- NOTE | 2019-11-21 19:09 | RADIOLOGY REPORT (SQ) ---
EXAM DESCRIPTION: MRI HEAD WITHOUT IMAGES COMPLETED DATE/TIME: 11/21/2019 10:59 am REASON FOR STUDY: CEREBRAL INFARCTION I63.9 CEREBRAL INFARCTION, UNSPECIFIED COMPARISON: CT brain 11/18/2019. TECHNIQUE: Multiplanar imaging includes non-contrasted T1, T2, FLAIR, and diffusion with ADC map seq uences. Images stored on PACS. LIMITATIONS: None. FINDINGS: ANATOMY: No anomalies. Normal vascular flow voids. Pituitary fossa normal. CSF SPACES: Normal in size and contour. No hemorrhage. CEREBRUM: Patchy multifocal FLAIR hyperintensities in the white matter. Largely deep periventricular with chronic appearing lacunar infarcts and old right posterior temporal/occipital lobe infarct. No hemorrhage or mass or shift. POSTERIOR FOSSA: Tiny multifocal nonacute appearing infarcts in the cerebellum. Upper brainstem inta ct. IAC's look normal. No mastoid fluid. DIFFUSION IMAGING: Negative for acute or sub-acute infarction. ORBITS: No masses. Globes normal. PARANASAL SINUSES: No fluid levels. Mucosa normal. OTHER: No other significant finding. IMPRESSION: 1. Chronic supratentorial and infratentorial infarcts and small vessel disease. No acute CVA. EVIDENCE OF ACUTE STROKE: NO. TECHNICAL DOCUMENTATION: JOB ID: [id number] 2010 [employer]- All Rights Reserved Reading location - IP/workstation name: [email or web address]
== END ==
LOC: RAD 07:26
PROVIDERS: ATTEND Internal Medicine
DX: I63.9 Cerebral infarction, unspecified (principal)
CPT/HCPCS: 70551

== ENCOUNTER 2020-02-10 10:45 | Inpatient (IN) | payer MEDICARE, MEDICAID ==
--- NOTE | 2020-02-10 11:08 | ER Document Report ---
ED General - General Chief Complaint: Cough Stated Complaint: SHORTNESS OF BREATH Time Seen by Provider: 02/10/20 11:02 Primary Care Provider: JUDY GONGORA MD [Primary Care Provider] - Follow up as needed TRAVEL OUTSIDE OF THE [place] IN LAST 30 DAYS: No - HPI Notes: Chief complaint: Dyspnea and positive test for COVID-19 History of present illness: 69-year-old female with past CVA and COPD followed at longterm by Dr. Gongora is sent to the emergency department today because of marginal O2 saturation and some complaint of dyspnea after documenting a positive COVID-19 test at facility. Patient complains of mild flulike symptoms primarily some diffuse myalgias. Resuscitation Status: Full Code Usual medications: Amlodipine/Valsartan [Exforge 10-320 mg Tablet] 1 tab PO DAILY 12/08/17 Aripiprazole [Abilify] 15 mg PO DAILY 12/08/17 Chlorthalidone [Chlorthalidone 50 mg Tablet] 50 mg PO DAILY 12/08/17 Clonidine HCl [Catapres 0.3 mg Tablet] 0.3 mg PO Q12 12/08/17 Clopidogrel Bisulfate [Plavix 75 mg Tablet] 75 mg PO DAILY 12/08/17 Doxepin HCl [Silenor] 6 mg PO QHS 12/08/17 Escitalopram Oxalate [Lexapro 10 mg Tablet] 10 mg PO DAILY 12/08/17 Gabapentin [Neurontin 300 mg Capsule] 300 mg PO Q8 12/08/17 Hydralazine HCl [Apresoline 50 mg Tablet] 50 mg PO Q8 12/08/17 Labetalol HCl [Normodyne 200 mg Tablet] 200 mg PO Q12 12/08/17 Hydrocodone/Acetaminophen [Hydrocodone-Acetamin 10-325 mg] 1 tab PO Q8HP PRN #90 tablet 12/14/17 Albuterol Sulfate [Ventolin Hfa 8 gm Mdi (1 Mdi/ER Disp)] 1 puff IH Q6HP PRN 04/06/18 Atorvastatin Calcium [Lipitor] 80 mg PO HSP 04/06/18 Ipratropium/Albuterol Sulfate [Duoneb 3 ml Ampul] 3 ml NEB RTQ6 PRN 04/06/18 Docusate Sodium [Colace 100 mg Capsule] 100 mg PO BID #990 capsule 04/10/18 Fluticasone Propionate [Flonase Nasal [place] 50 Mcg/[place] 16 gm] 2 spray NASL Q12 spray.pump 04/10/18 Fluticasone/Umeclidin/Vilanter [Trelegy 100-62.5-25 Mcg Ellipta 14 Dose/Dpi] 1 inh IH DAILY inhaler 04/10/18 Loratadine [Claritin 10 mg Tablet] 10 mg PO DAILY #30 tablet 04/10/18 Prednisone [Deltasone 20 mg Tablet] 40 mg PO DAILY #5 tablet 04/10/18 Valsartan [Diovan 160 mg Tablet] 320 mg PO DAILY #999 tablet 04/10/18 - Related Data Allergies/Adverse Reactions: celecoxib [From Celebrex] Allergy (Unknown, Verified 11/18/19 17:42) ibuprofen [From Motrin] Allergy (Unknown, Verified 11/18/19 17:42) Past Medical History - General Information source: Patient, [facility] Records - Social History Smoking Status: Unknown if Ever Smoked Family History: Arthritis, CVA, DM, Hyperlipidemia, Hypertension - Past Medical History Cardiac Medical History: Reports: Hx Congestive Heart Failure, Hx Hypercholesterolemia, Hx Hypertension, Hx Heart Murmur Denies: Hx Atrial Fibrillation, Hx Coronary Artery Disease, Hx Heart Attack Pulmonary Medical History: Reports: Hx COPD Denies: Hx Asthma, Hx Bronchitis, Hx Pneumonia, Hx Tuberculosis Neurological Medical History: Reports: Hx Cerebrovascular Accident - mutliple, PT STATES SHE HAS HAD 25 RODRÍGUEZ.. Denies: Hx Seizures, Hx Parkinson's Disease Endocrine Medical History: Renal/ Medical History: Denies: Hx End Stage Renal Disease, Hx Kidney Stones, Hx Peritoneal Dialysis Malignancy Medical History: GI Medical History: Reports: Hx Gastroesophageal Reflux Disease. Denies: Hx Hiatal Hernia, Hx Pancreatitis, Hx Ulcer Musculoskeletal Medical History: Reports Hx Arthritis, Reports Hx Musculoskeletal Deformity, Denies Hx Systemic Lupus Erythematosus Psychiatric Medical History: Reports: Hx Anxiety, Hx Bipolar Disorder, Hx Dementia - Multi-infarct, Hx Depression Denies: Hx Schizophrenia Traumatic Medical History: Infectious Medical History: Past Surgical History: Reports: Hx Orthopedic Surgery, Hx Tubal Ligation. Denies: Hx Appendectomy, Hx Bowel Surgery, Hx Section, Hx Cholecystectomy, Hx Hysterectomy, Hx Mastectomy, Hx Tonsillectomy - Immunizations Immunizations up to date: Yes Hx Diphtheria, Pertussis, Tetanus Vaccination: Yes - STATES SHE HAS PNEUMONIA VACCINE IN 2013. Hx Pneumococcal Vaccination: 11/17/09 Review of Systems - Review of Systems Notes: Constitutional: Negative for fever. HENT: Negative for sore throat. Eyes: Negative for visual changes. Cardiovascular: Negative for chest pain. Respiratory: As per HPI. Gastrointestinal: Negative for abdominal pain, vomiting or diarrhea. Genitourinary: Negative for dysuria. Musculoskeletal: As per HPI. Skin: Negative for rash. Neurological: Slight dull headache. Focal weakness or numbness. 10 point ROS negative except as marked above and in HPI. Physical Exam - Vital signs Vitals: BP Pulse Ox 103/92 H 97 02/10/20 10:53 02/10/20 10:53 - Notes Notes: GENERAL: Obese elderly female with old right hemiparesis and slurred speech as per baseline appearing nontoxic but mildly dyspneic. SKIN: Good turgor no rashes. HEAD: Normocephalic atraumatic. EYES: PERRLA. EOMI. Conjunctivae and sclerae clear. EARS: CANALS AND TMS CLEAR. NOSE: CLEAR. MOUTH: Moist mucosa. Good dentition. No stridor or edema. No drooling. NECK: Supple. No masses or thyromegaly. No adenopathy. Carotids 2+ without bruits. No JVD. BACK: Symmetrical without tenderness. CHEST: Mildly tachypneic when she speaks. She desaturates into the upper 80s while she is talking and immediately goes back up to about 92% on room air. I placed her on 2 L of nasal O2 and she is maintaining good saturation with this. She has scattered rhonchi and faint wheezes bilaterally. HEART: Regular rhythm. No murmur gallop or rub. ABDOMEN: Obese soft nontender without masses, organomegaly or rebound. Bowel sounds normally active. No bruits. GENITALIA: Deferred. EXTREMITIES: Healed surgical scar left anterior knee. 1+ bilateral pretibial edema. No calf tenderness. Cap refill less than 1.5 seconds. Dorsalis pedis and posterior tibial pulses 3+ and symmetrical. NEUROLOGICAL: GCS 15. Alert and oriented x3. Old right hemiparesis with contracture right upper extremity chronically slurred speech. Cranial nerves II through XII intact. PSYCHIATRIC: Flat affect. Course - Vital Signs Vital signs: Temp Pulse Resp BP Pulse Ox 99.4 F 63 14 103/92 H 96 02/10/20 11:04 02/10/20 11:04 02/10/20 12:00 02/10/20 11:04 02/10/20 12:00 - Laboratory Result Diagrams: 02/10/20 11:57 02/10/20 11:57 Laboratory results interpreted by me: 02/10/20 02/10/20 02/10/20 11:57 11:57 13:00 WBC 3.2 L RDW 16.0 H Plt Count 96 L Lymph % (Auto) 50.6 H [place] % (Auto) 14.2 H Absolute Neuts (auto) 1.0 L Seg Neutrophils % 32.0 L Carbonic Acid 1.42 H ABG pCO2 47.1 H ABG pO2 63.5 L ABG HCO3 27.2 H ABG Total CO2 28.7 H ABG O2 Saturation 91.7 L Est GFR (MDRD) Non-Af 58 L Glucose 140 H AST 44 H Discharge - Discharge Clinical Impression: COVID-19 virus infection, COPD exacerbation, History of CVA (cerebrovascular accident) Condition: Fair Disposition: ADMITTED INPATIENT Admitting Provider: Kaitlin Unit Admitted: [facility] Referrals: JUDY GONGORA MD [Primary Care Provider] - Follow up as needed
--- NOTE | 2020-02-10 11:49 | RADIOLOGY REPORT (SQ) ---
EXAM DESCRIPTION: CHEST SINGLE VIEW IMAGES COMPLETED DATE/TIME: 02/10/2020 11:36 am REASON FOR STUDY: COVID +, dyspnea COMPARISON: 11/18/2019 EXAM PARAMETERS: NUMBER OF VIEWS: One view. TECHNIQUE: Single frontal radiographic view of the chest acquired. RADIATION DOSE: NA LIMITATIONS: None. FINDINGS: LUNGS AND PLEURA: No opacities, masses or pneumothorax. No pleural effusion. MEDIASTINUM AND HILAR STRUCTURES: No masses. Contour normal. HEART AND VASCULAR STRUCTURES: Heart remains enlarged. No failure. BONES: No acute findings. HARDWARE: None in the chest. OTHER: No other significant finding. IMPRESSION: Cardiomegaly. No other significant findings. TECHNICAL DOCUMENTATION: JOB ID: [id number] 2010 [employer]- All Rights Reserved Reading location - IP/workstation name: [email or web address]
[2020-02-10 12:33] LABS: ABSOLUTE EOSINOPHILS # (AUTO) 0.1 10^3/uL (0.0-0.6); ABSOLUTE LYMPHOCYTES (AUTO) 1.6 10^3/uL (0.5-4.7); ABSOLUTE MONOCYTES (AUTO) 0.5 10^3/uL (0.1-1.4); BASOPHILS % (AUTO) 0.5 % (0-2); EOSINOPHILS % (AUTO) 2.7 % (0-6); HEMATOCRIT 37.9 % (36.0-47.0); HEMOGLOBIN 12.4 g/dL (12.0-15.5); LYMPHOCYTES % (AUTO) 50.6 % (13-45); MEAN CORPUSCULAR HEMOGLOBIN 29.9 pg (27.0-33.4); MEAN CORPUSCULAR HGB CONC 32.7 g/dL (32.0-36.0); MEAN CORPUSCULAR VOLUME 92 fl (80-97); MONOCYTES % (AUTO) 14.2 % (3-13); RED BLOOD COUNT 4.14 10^6/uL (3.72-5.28); TOTAL CELLS COUNTED % (AUTO) 100 %; WHITE BLOOD COUNT 3.2 10^3/uL (4.0-10.5)
[2020-02-10 12:47] LABS: ALBUMIN 4.4 g/dL (3.5-5.0); ALKALINE PHOSPHATASE 82 U/L (38-126); ANION GAP 12 (5-19); ASPARTATE AMINO TRANSFERASE 44 U/L (14-36); BILIRUBIN,DIRECT 0.4 mg/dL (0.0-0.4); BILIRUBIN,TOTAL 0.7 mg/dL (0.2-1.3); BLOOD UREA NITROGEN 13 mg/dL (7-20); CALCIUM 9.5 mg/dL (8.4-10.2); CARBON DIOXIDE 29 mmol/L (22-30); CHLORIDE 100 mmol/L (98-107); GLUCOSE 140 mg/dL (75-110); TOTAL PROTEIN 7.8 g/dL (6.3-8.2)
--- NOTE | 2020-02-10 12:52 | EKG REPORT ---
SEVERITY:- ABNORMAL ECG - SINUS RHYTHM INCOMPLETE LEFT BUNDLE BRANCH BLOCK PROBABLE LEFT VENTRICULAR HYPERTROPHY : Confirmed by: Bj Barkley MD 10-Feb-2020 12:51:26
[2020-02-10 13:04] LABS: PLATELET COUNT 96 10^3/uL (150-450)
[2020-02-10 13:32] LABS: ARTERIAL BLOOD BASE EXCESS 1.5 mmol/L; ARTERIAL BLOOD H2CO3 1.42 mmol/L (1.05-1.35); ARTERIAL BLOOD HCO3 27.2 mmol/L (20-24); ARTERIAL BLOOD O2 SATURATION 91.7 % (94-98); ARTERIAL BLOOD PCO2 47.1 mmHg (35-45); ARTERIAL BLOOD PH 7.38 (7.35-7.45); ARTERIAL BLOOD PO2 63.5 mmHg (80-100); ARTERIAL BLOOD TOTAL CO2 28.7 mmol/L (21-25)
[2020-02-10 13:33] LABS: ARTERIAL BLOOD FIO2 ROOM AIR
[2020-02-10] MEDS ORDERED: DEXAMETHASONE SOD PHOS INJ 10 MG/1 ML VIAL IV ONE (14:02)
[2020-02-10] MEDS ORDERED: RINGERS SOLUTION,LACTATED 1,000 ML IV PRN (17:55)
[2020-02-10] MEDS ORDERED: IPRATROPIUM/ALBUTEROL 0.5-2.5 MG/3 ML AMPUL NEB PRN (17:55)
[2020-02-10] MEDS ORDERED: ACETAMINOPHEN 325 MG TABLET PO PRN (17:55)
[2020-02-10] MEDS ORDERED: DEXAMETHASONE SOD PHOS INJ 10 MG/1 ML VIAL IV SCH (18:00)
[2020-02-10] MEDS: ASCORBIC ACID 500 MG TABLET PO SCH (18:31)
[2020-02-10] MEDS: ZINC SULFATE 220 MG CAPSULE PO SCH (18:32)
[2020-02-10] MEDS: CHOLECALCIFEROL (D3) 1,000 UNIT (25 MCG) TABLET PO SCH (18:32)
[2020-02-10] MEDS: ASPIRIN 81 MG TABLET, ENT COATED PO SCH (18:47)
[2020-02-10 18:51] LABS: FIBRINOGEN 589 mg/dL (209-497); INTERNATIONAL RATION (INR) 0.95; PROTHROMBIN TIME 12.9 SEC (11.4-15.4)
[2020-02-10 18:52] LABS: PARTIAL THROMBOPLASTIN TIME 30.6 SEC (23.5-35.8)
[2020-02-10 18:54] LABS: D-DIMER 0.57 ug/mL (0.00-0.50)
[2020-02-10] MEDS ORDERED: AZITHROMYCIN 250 MG TABLET PO ONE (19:00)
[2020-02-10] MEDS: ENOXAPARIN SODIUM INJ 40 MG/0.4 ML DISP.SYRIN SUBCUT SCH (19:07)
[2020-02-10 19:37] LABS: C-REACTIVE PROTEIN < 5.0 mg/L (<10.0)
[2020-02-10 21:48] LABS: A TYPE INFLUENZA AG NEGATIVE (NEGATIVE); B INFLUENZA AG NEGATIVE (NEGATIVE)
--- NOTE | 2020-02-10 22:17 | PDOC H&P ---
History of Present Illness Admission Date/PCP: 02/10/20 15:43 JUDY GONGORA MD History of Present Illness: KOKO EWING is a 69 year old female, She is a resident of the long term at [facility] She endorsed respiratory symptoms, with cough, wheezing couple of days ago in the long term, a chest x-ray was done that suggest CHF. I felt it was a poor technique chest x-ray, patient is obese. She underwent a rapid Covid test in the long term that was positive, initially attempt was made to isolate the patient in the long term and treat her in the long term, she was started empirically on dexamethasone tablet but patient symptoms was worsening and she requested to be transfer to the emergency room.In the emergency room she was evaluated, she was found to be febrile with temperature 99.4, The arterial blood gas on ambient air, pH7.35, PCO2 47.1, PO2 63.5 arterial oxygen saturation 91.7. Patient is high risk for decompensation, she is morbidly obese, history of CVA with residual right sided hemiplegia, sedentary, bedbound,, because of all these factors it was felt that the best plan of care for this patient will be inpatient care to initiate intravenous dexamethasone, remdesivir Past Medical History Cardiac Medical History: Reports: Hyperlipidema, Hypertension, Heart Murmur Pulmonary Medical History: Reports: Chronic Obstructive Pulmonary Disease (COPD) Neurological Medical History: Reports: Ischemic CVA Endocrine Medical History: Malignancy Medical History: GI Medical History: Reports: Gastroesophageal Reflux Disease Musculoskeltal Medical History: Reports: Arthritis Psychiatric Medical History: Reports: Bipolar Disorder, 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, Depression Hematology: Reports: Anemia Infectious Medical History: Past Surgical History Past Surgical History: Reports: Orthopedic Surgery, Tubal Ligation Social History Smoking Status: Former Smoker Frequency of Alcohol Use: None Hx Recreational Drug Use: No Drugs: None Hx Prescription Drug Abuse: No Family History Family History: Arthritis, CVA, DM, Hyperlipidemia, Hypertension Parental Family History Reviewed: Yes Children Family History Reviewed: Yes Sibling(s) Family History Reviewed.: Yes Medication/Allergy Home Medications: Amlodipine/Valsartan [Exforge 10-320 mg Tablet] 1 tab PO QAM 12/08/17 Aripiprazole [Abilify] 10 mg PO QAM 12/08/17 Chlorthalidone [Chlorthalidone 50 mg Tablet] 50 mg PO QAM 12/08/17 Clonidine HCl [Catapres 0.3 mg Tablet] 0.3 mg PO Q12 12/08/17 Clopidogrel Bisulfate [Plavix 75 mg Tablet] 75 mg PO QAM 12/08/17 Doxepin HCl [Silenor] 6 mg PO QHS 12/08/17 Escitalopram Oxalate [Lexapro 10 mg Tablet] 20 mg PO DAILY 12/08/17 Gabapentin [Neurontin 300 mg Capsule] 300 mg PO Q8 12/08/17 Hydralazine HCl [Apresoline 50 mg Tablet] 50 mg PO Q8 12/08/17 Labetalol HCl [Normodyne 200 mg Tablet] 200 mg PO Q12 12/08/17 Albuterol Sulfate [Ventolin Hfa 8 gm Mdi (1 Mdi/ER Disp)] 1 puff IH Q6HP PRN 04/06/18 Atorvastatin Calcium [Lipitor] 80 mg PO QHS 04/06/18 Ipratropium/Albuterol Sulfate [Duoneb 3 ml Ampul] 3 ml NEB RTQ4HP PRN 04/06/18 Docusate Sodium [Colace 100 mg Capsule] 100 mg PO BID #990 capsule 04/10/18 Fluticasone Propionate [Flonase Nasal [place] 50 Mcg/[place] 16 gm] 2 spray NASL Q12 spray.pump 04/10/18 Acetaminophen [Tylenol] 650 mg PO Q4HP PRN 02/10/20 Acetaminophen [Tylenol] 650 mg PO Q4HP PRN 02/10/20 Carboxymethylcellulose Sodium [Artificial Tears] 1 drop OU QID 02/10/20 Clotrimazole/Betamethasone Dip [Lotrisone Cream 15 gm] 1 applic TOP DAILYP PRN 02/10/20 Dexamethasone [Decadron] 6 mg PO DAILY 02/10/20 Fluticasone/Umeclidin/Vilanter [Trelegy 100-62.5-25 Mcg Ellipta 14 Dose/Dpi] 1 inh IH QAM 02/10/20 Furosemide [Lasix 40 mg Tablet] 40 mg PO DAILY 02/10/20 Guaifenesin [Mucinex Sr 600 mg Tablet.sa] 600 mg PO BID 02/10/20 Hydrocodone/Acetaminophen [Hydrocodone-Acetamin 10-325 mg] 1 tab PO Q8HP PRN 02/10/20 Levofloxacin [Levaquin 750 mg Tablet] 750 mg PO DAILY 02/10/20 Loperamide HCl [Imodium A-D] 2 mg PO ASDIR PRN MDD 8MG 02/10/20 Loperamide HCl [Imodium A-D] 4 mg PO ASDIR PRN MDD 8MG 02/10/20 Loratadine [Claritin 10 mg Tablet] 10 mg PO QAM 02/10/20 Magnesium Hydroxide [Milk of Magnesia 30 ml Udcup] 30 ml PO DAILYP PRN 02/10/20 Menthol [Biofreeze] 1 applic TOP BID 02/10/20 Potassium Chloride [Klor-Con 10 Meq Tablet ER] 20 meq PO DAILY 02/10/20 Allergies/Adverse Reactions: celecoxib [From Celebrex] Allergy (Unknown, Verified 11/18/19 17:42) ibuprofen [From Motrin] Allergy (Unknown, Verified 11/18/19 17:42) Review of Systems Constitutional: PRESENT: fatigue Eyes: ABSENT: visual disturbances Ears: ABSENT: hearing changes Cardiovascular: ABSENT: chest pain, dyspnea on exertion, edema, orthropnea, palpitations Respiratory: PRESENT: cough, dyspnea Gastrointestinal: ABSENT: abdominal pain, constipation, diarrhea, hematemesis, hematochezia, nausea, vomiting Genitourinary: ABSENT: dysuria, hematuria Musculoskeletal: ABSENT: joint swelling Integumentary: ABSENT: rash, wounds Neurological: ABSENT: abnormal gait, abnormal speech, confusion, dizziness, focal weakness, syncope Psychiatric: ABSENT: anxiety, depression, homidical ideation, suicidal ideation Endocrine: ABSENT: cold intolerance, heat intolerance, menstrual abnormalities, polydipsia, polyuria Hematologic/Lymphatic: ABSENT: easy bleeding, easy bruising, lymphadenopathy Physical Exam Vital Signs: Temp Pulse Resp BP Pulse Ox 99.4 F 63 14 167/97 H 99 02/10/20 11:04 02/10/20 11:04 02/10/20 21:01 02/10/20 21:00 02/10/20 21:01 Intake & Output 02/09/20 02/10/20 02/11/20 06:59 06:59 06:59 Weight 145.1 kg General appearance: PRESENT: obese Head exam: PRESENT: atraumatic, normocephalic Eye exam: PRESENT: conjunctiva pink, EOMI, PERRLA. ABSENT: scleral icterus Ear exam: PRESENT: normal external ear exam Mouth exam: PRESENT: moist, tongue midline Neck exam: PRESENT: full ROM. ABSENT: carotid bruit, JVD, lymphadenopathy, thyromegaly Cardiovascular exam: PRESENT: RRR, +S1, +S2 Pulses: PRESENT: normal dorsalis pedis pul, +2 pedal pulses bilateral Vascular exam: PRESENT: normal capillary refill GI/Abdominal exam: PRESENT: normal bowel sounds, soft Rectal exam: PRESENT: deferred Neurological exam: PRESENT: motor sensory deficit Psychiatric exam: PRESENT: appropriate affect, normal mood. ABSENT: homicidal ideation, suicidal ideation Skin exam: PRESENT: dry, intact, warm. ABSENT: cyanosis, rash Results Laboratory Results: 02/10/20 11:57 02/10/20 11:57 02/10/20 02/10/20 02/10/20 11:57 11:57 13:00 WBC 3.2 L RBC 4.14 Hgb 12.4 Hct 37.9 MCV 92 MCH 29.9 MCHC 32.7 RDW 16.0 H Plt Count 96 L Seg Neutrophils % 32.0 L Carbonic Acid 1.42 H HCO3/H2CO3 Ratio 19:1 ABG pH 7.38 ABG pCO2 47.1 H ABG pO2 63.5 L ABG HCO3 27.2 H ABG O2 Saturation 91.7 L ABG Base Excess 1.5 FiO2 ROOM AIR Sodium 140.8 Potassium 4.0 Chloride 100 Carbon Dioxide 29 Anion Gap 12 BUN 13 Creatinine 0.96 Est GFR ( Amer) > 60 Glucose 140 H Calcium 9.5 Ferritin Total Bilirubin 0.7 AST 44 H Alkaline Phosphatase 82 C-Reactive Protein Total Protein 7.8 Albumin 4.4 02/10/20 18:07 WBC RBC Hgb Hct MCV MCH MCHC RDW Plt Count Seg Neutrophils % Carbonic Acid HCO3/H2CO3 Ratio ABG pH ABG pCO2 ABG pO2 ABG HCO3 ABG O2 Saturation ABG Base Excess FiO2 Sodium Potassium Chloride Carbon Dioxide Anion Gap BUN Creatinine Est GFR ( Amer) Glucose Calcium Ferritin 11.30 Total Bilirubin AST Alkaline Phosphatase C-Reactive Protein < 5.0 Total Protein Albumin 02/10/20 02/10/20 11:57 18:07 Troponin I < 0.012 NT-Pro-B Natriuret Pep 55 Impressions: Chest X-Ray 02/10/20 11:05 IMPRESSION: Cardiomegaly. No other significant findings. Assessment & Plan - Diagnosis (1) Acute hypoxemic respiratory failure Is this a current diagnosis for this admission?: Yes Plan: She has acute hypoxemic respiratory failure not presently requiring noninvasive positive pressure ventilation, she is on supplemental oxygen via nasal cannula. (2) COVID-19 Is this a current diagnosis for this admission?: Yes Plan: She has COVID-19 related respiratory symptoms, start intravenous dexamethasone, remdesivir (3) CVA, old, hemiparesis Is this a current diagnosis for this admission?: Yes (4) COPD (chronic obstructive pulmonary disease) Qualifiers: COPD type: COPD with acute exacerbation Qualified Code(s): J44.1 - Chronic obstructive pulmonary disease with (acute) exacerbation Is this a current diagnosis for this admission?: Yes - Time Time Spent: Greater than 70 Minutes Medications reviewed and adjusted accordingly: Yes Anticipated Discharge Disposition: [facility] Anticipated Discharge Timeframe: 10 days
[2020-02-11] MEDS ORDERED: ALBUTEROL SULFATE HFA (90 MCG/PUFF) 8 GM MDI (1 MDI/ER DISP) IH PRN (04:10)
[2020-02-11] MEDS ORDERED: LOPERAMIDE HCL 2 MG CAPSULE PO PRN (04:10)
[2020-02-11] MEDS ORDERED: ACETAMINOPHEN 325 MG TABLET PO PRN ×3 (04:10→07:47)
[2020-02-11] MEDS ORDERED: HYDROCODONE/ACETAMINOPHEN 10-325 MG TABLET PO PRN (04:10)
[2020-02-11] MEDS ORDERED: CLOTRIMAZOLE/BETAMETHASONE DIP CREAM 15 GM TOP PRN (04:10)
[2020-02-11] MEDS ORDERED: DOXEPIN HCL 6 MG PO SCH (04:15)
[2020-02-11] MEDS: HYDRALAZINE HCL 50 MG TABLET PO SCH ×3 (05:21→22:37)
[2020-02-11] MEDS: GABAPENTIN 300 MG CAPSULE PO SCH ×3 (05:22→22:36)
[2020-02-11] MEDS: ATORVASTATIN CALCIUM 80 MG TABLET PO SCH ×2 (05:22→22:36)
[2020-02-11 05:29] LABS: ABSOLUTE LYMPHOCYTES (AUTO) 1.2 10^3/uL (0.5-4.7); ABSOLUTE MONOCYTES (AUTO) 0.2 10^3/uL (0.1-1.4); ABSOLUTE NEUT (AUTO) 1.8 10^3/uL (1.7-8.2); BASOPHILS % (AUTO) 0.2 % (0-2); HEMOGLOBIN 14.2 g/dL (12.0-15.5); LYMPHOCYTES % (AUTO) 38.1 % (13-45); MEAN CORPUSCULAR HEMOGLOBIN 30.1 pg (27.0-33.4); MEAN CORPUSCULAR VOLUME 91 fl (80-97); MONOCYTES % (AUTO) 7.3 % (3-13); PLATELET COUNT 107 10^3/uL (150-450); RED BLOOD COUNT 4.73 10^6/uL (3.72-5.28); RED CELL DISTRIBUTION WIDTH 15.9 % (11.5-14.0); SEGMENTED NEUTROPHILS % (AUTO) 54.4 % (42-78); TOTAL CELLS COUNTED % (AUTO) 100 %; WHITE BLOOD COUNT 3.3 10^3/uL (4.0-10.5)
[2020-02-11 05:44] LABS: ALBUMIN 4.8 g/dL (3.5-5.0); ALKALINE PHOSPHATASE 107 U/L (38-126); ANION GAP 13 (5-19); ASPARTATE AMINO TRANSFERASE 41 U/L (14-36); BILIRUBIN,DIRECT 0.3 mg/dL (0.0-0.4); BILIRUBIN,TOTAL 0.6 mg/dL (0.2-1.3); BLOOD UREA NITROGEN 14 mg/dL (7-20); CALCIUM 10.4 mg/dL (8.4-10.2); CARBON DIOXIDE 30 mmol/L (22-30); CHLORIDE 97 mmol/L (98-107); CREATINE KINASE 622 U/L (30-135); GLUCOSE 151 mg/dL (75-110); POTASSIUM 3.7 mmol/L (3.6-5.0); TOTAL PROTEIN 9.2 g/dL (6.3-8.2)
[2020-02-11] MEDS ORDERED: ALBUTEROL SULFATE HFA (90 MCG/PUFF) 8 GM MDI IH PRN (07:28)
[2020-02-11] MEDS ORDERED: VALSARTAN PO SCH (08:00)
[2020-02-11] MEDS ORDERED: AMLODIPINE PO SCH (08:00)
[2020-02-11] MEDS ORDERED: REMDESIVIR 200 MG in NORMAL SALINE 250 ML IV ONE ×2 (08:00→17:00)
[2020-02-11] MEDS: CLONIDINE HCL 0.1 MG TABLET PO SCH ×2 (10:50→22:37)
[2020-02-11] MEDS: VALSARTAN 160 MG TABLET PO SCH (10:50)
[2020-02-11] MEDS: CHLORTHALIDONE 25 MG TABLET PO SCH (10:50)
[2020-02-11] MEDS: ZINC SULFATE 220 MG CAPSULE PO SCH (10:51)
[2020-02-11] MEDS: ESCITALOPRAM OXALATE 10 MG TABLET PO SCH (10:52)
[2020-02-11] MEDS: FUROSEMIDE 40 MG TABLET PO SCH (10:52)
[2020-02-11] MEDS: ASPIRIN 81 MG TABLET, ENT COATED PO SCH (10:54)
[2020-02-11] MEDS: AMLODIPINE BESYLATE 10 MG TABLET PO SCH (10:54)
[2020-02-11] MEDS: ARIPIPRAZOLE 5 MG TABLET PO SCH (10:55)
[2020-02-11] MEDS: ASCORBIC ACID 500 MG TABLET PO SCH ×2 (10:55→17:43)
[2020-02-11] MEDS: LABETALOL HCL 200 MG TABLET PO SCH ×2 (10:55→22:37)
[2020-02-11] MEDS: CLOPIDOGREL BISULFATE 75 MG TABLET PO SCH (10:55)
[2020-02-11] MEDS: DEXAMETHASONE SOD PHOSPHATE INJ 4 MG/1 ML VIAL IV SCH (10:55)
[2020-02-11] MEDS: CHOLECALCIFEROL (D3) 1,000 UNIT (25 MCG) TABLET PO SCH (10:55)
[2020-02-11] MEDS: POLYVINYL ALCOHOL 1.4% OPH SOLN 15 ML OU SCH ×4 (10:56→22:37)
[2020-02-11] MEDS: FLUTICASONE NASAL SPRAY 50 MCG/SPRY 120 SPRAY/16 GM NASL SCH ×2 (10:56→22:38)
[2020-02-11] MEDS: ENOXAPARIN SODIUM INJ 40 MG/0.4 ML DISP.SYRIN SUBCUT SCH (10:59)
[2020-02-11] MEDS: AZITHROMYCIN 250 MG TABLET PO SCH (17:43)
--- NOTE | 2020-02-11 18:00 | PDOC PROGRESS REPORT ---
Subjective Date:: 02/11/20 Subjective:: Patient seen by the bedside, she was admitted yesterday for the management of CO VID-19 positive test (U07.1, COVID-19) with Acute Respiratory Distress Syndrome (ARDS) (J80, ARDS)(If respiratory failure or sepsis present, add as separate assessment) Related complications She said she feels somewhat better than yesterday Reason For Visit: COVID,ACUTE HYPERCAPNIC,HYPOXEMIC RESPIRATORY FAIL Physical Exam Vital Signs: Temp Pulse Resp BP Pulse Ox 98.6 F 74 14 155/93 H 100 02/11/20 10:00 02/11/20 14:00 02/11/20 08:46 02/11/20 08:46 02/11/20 08:46 Intake & Output 02/10/20 02/11/20 02/12/20 06:59 06:59 06:59 Output Total 250 Balance -250 Weight 135.3 kg General appearance: PRESENT: no acute distress Eye exam: PRESENT: PERRLA Respiratory exam: PRESENT: clear to auscultation audelia Cardiovascular exam: PRESENT: +S1, +S2 GI/Abdominal exam: PRESENT: soft Neurological exam: PRESENT: alert, motor sensory deficit Skin exam: PRESENT: dry Results Laboratory Results: 02/11/20 04:29 02/11/20 04:29 02/10/20 02/11/20 02/11/20 18:07 04:29 04:29 WBC 3.3 L RBC 4.73 Hgb 14.2 Hct 43.0 MCV 91 MCH 30.1 MCHC 33.0 RDW 15.9 H Plt Count 107 L Seg Neutrophils % 54.4 Sodium 140.1 Potassium 3.7 Chloride 97 L Carbon Dioxide 30 Anion Gap 13 BUN 14 Creatinine 1.01 Est GFR ( Amer) > 60 Glucose 151 H Calcium 10.4 H Ferritin 11.30 Total Bilirubin 0.6 AST 41 H Alkaline Phosphatase 107 C-Reactive Protein < 5.0 Total Protein 9.2 H Albumin 4.8 02/10/20 02/10/20 02/11/20 11:57 18:07 04:29 Creatine Kinase 622 H Troponin I < 0.012 NT-Pro-B Natriuret Pep 55 Impressions: Chest X-Ray 02/10/20 11:05 IMPRESSION: Cardiomegaly. No other significant findings. Assessment & Plan - Diagnosis (1) Acute hypoxemic respiratory failure Is this a current diagnosis for this admission?: Yes Plan: She will continue supplemental oxygen via nasal cannula (2) COVID-19 Is this a current diagnosis for this admission?: Yes Plan: She will continue IV dexamethasone, remdesivir (3) CVA, old, hemiparesis Is this a current diagnosis for this admission?: Yes Plan: Continue bronchodilators (4) COPD (chronic obstructive pulmonary disease) Qualifiers: COPD type: COPD with acute exacerbation Qualified Code(s): J44.1 - Chronic obstructive pulmonary disease with (acute) exacerbation Is this a current diagnosis for this admission?: Yes - Time Time Spent with patient: 35 or more minutes Level of Care: IMCU Medications reviewed and adjusted accordingly: Yes Anticipated discharge: SNF Anticipated DC Timeframe: Other - 7 to 10 days
--- NOTE | 2020-02-11 20:39 | RADIOLOGY REPORT (SQ) ---
EXAM DESCRIPTION: CT CHEST WITHOUT IV CONTRAST COMPLETED DATE/TME: 02/11/2020 20:11 CLINICAL HISTORY: 69 years, Female, pneumonia COMPARISON: Chest x-ray 02/10/2020. CTA chest 09/04/2018. TECHNIQUE: Axial images without IV contrast. Sagittal coronal reconstruction. Images stored on PACS. All CT scanners at this facility use dose modulation, iterative reconstruction, and/or weight based dosing when appropriate to reduce radiation dose to as low as reasonably achievable (ALARA). FINDINGS: Mildly enlarged 31 mm main pulmonary artery. Ectatic almost aneurysmal 38 mm ascending aorta moderate calcifications in the aortic annulus. Moderate enlargement of the left heart especially the left ventricle. Right heart not enlarged. No suspicious mediastinal adenopathy. Mild dilatation of the proximal esophagus. Nondilatation of the distal esophagus. No overt obstructive process. Low lung volumes secondary to cardiomegaly and obesity. Worse since 2019. Mild vascular congestion. No overt acute lung or pleural abnormalities. There is associated motion artifact. Limited images of the upper abdomen demonstrate multiple small gallstones. Atherosclerotic abdominal aorta and its branches including the celiac simple mesenteric and both renal arteries. IMPRESSION: 1. Borderline main pulmonary artery/pulmonary hypertension. Borderline ascending aortic aneurysm. Calcifications of the aortic annulus. Suspicious for aortic valve disease. 2. Cardiomegaly mainly left heart. 3. Reduced lung volumes bilaterally worse compared to previous study. Mild vascular congestion without overt acute infiltrate. 4. Atherosclerotic branches of the abdominal aorta with suspected stenosis. 5. Gallstones without acute biliary dilatation. 6. Mild diffuse enlargement of thyroid gland unchanged.
[2020-02-12] MEDS: HYDRALAZINE HCL 50 MG TABLET PO SCH ×3 (05:45→21:16)
[2020-02-12] MEDS: GABAPENTIN 300 MG CAPSULE PO SCH ×3 (05:45→21:16)
[2020-02-12 06:19] LABS: ABSOLUTE LYMPHOCYTES (AUTO) 1.8 10^3/uL (0.5-4.7); ABSOLUTE MONOCYTES (AUTO) 0.6 10^3/uL (0.1-1.4); ABSOLUTE NEUT (AUTO) 1.9 10^3/uL (1.7-8.2); BASOPHILS % (AUTO) 0.1 % (0-2); HEMOGLOBIN 12.3 g/dL (12.0-15.5); LYMPHOCYTES % (AUTO) 41.8 % (13-45); MEAN CORPUSCULAR HEMOGLOBIN 29.5 pg (27.0-33.4); MEAN CORPUSCULAR HGB CONC 32.4 g/dL (32.0-36.0); MEAN CORPUSCULAR VOLUME 91 fl (80-97); PLATELET COUNT 115 10^3/uL (150-450); RED BLOOD COUNT 4.17 10^6/uL (3.72-5.28); RED CELL DISTRIBUTION WIDTH 15.6 % (11.5-14.0); SEGMENTED NEUTROPHILS % (AUTO) 45.1 % (42-78); TOTAL CELLS COUNTED % (AUTO) 100 %; WHITE BLOOD COUNT 4.3 10^3/uL (4.0-10.5)
[2020-02-12 06:20] LABS: ALBUMIN 4.1 g/dL (3.5-5.0); ALKALINE PHOSPHATASE 79 U/L (38-126); ANION GAP 11 (5-19); ASPARTATE AMINO TRANSFERASE 35 U/L (14-36); BILIRUBIN,DIRECT 0.2 mg/dL (0.0-0.4); BILIRUBIN,TOTAL 0.3 mg/dL (0.2-1.3); BLOOD UREA NITROGEN 23 mg/dL (7-20); CALCIUM 9.6 mg/dL (8.4-10.2); CARBON DIOXIDE 29 mmol/L (22-30); CHLORIDE 99 mmol/L (98-107); CREATINE KINASE 430 U/L (30-135); GLUCOSE 134 mg/dL (75-110); POTASSIUM 3.3 mmol/L (3.6-5.0); TOTAL PROTEIN 7.2 g/dL (6.3-8.2)
[2020-02-12] MEDS: LABETALOL HCL 200 MG TABLET PO SCH ×2 (09:38→21:15)
[2020-02-12] MEDS: CLONIDINE HCL 0.1 MG TABLET PO SCH ×2 (09:38→21:15)
[2020-02-12] MEDS: FUROSEMIDE 40 MG TABLET PO SCH (09:38)
[2020-02-12] MEDS: ASCORBIC ACID 500 MG TABLET PO SCH ×2 (09:39→18:03)
[2020-02-12] MEDS: AMLODIPINE BESYLATE 10 MG TABLET PO SCH (09:39)
[2020-02-12] MEDS: VALSARTAN 160 MG TABLET PO SCH (09:39)
[2020-02-12] MEDS: ZINC SULFATE 220 MG CAPSULE PO SCH (09:39)
[2020-02-12] MEDS: ASPIRIN 81 MG TABLET, ENT COATED PO SCH (09:39)
[2020-02-12] MEDS: CHOLECALCIFEROL (D3) 1,000 UNIT (25 MCG) TABLET PO SCH (09:39)
[2020-02-12] MEDS: ARIPIPRAZOLE 5 MG TABLET PO SCH (09:39)
[2020-02-12] MEDS: CLOPIDOGREL BISULFATE 75 MG TABLET PO SCH (09:39)
[2020-02-12] MEDS: ESCITALOPRAM OXALATE 10 MG TABLET PO SCH (09:39)
[2020-02-12] MEDS: CHLORTHALIDONE 25 MG TABLET PO SCH (09:40)
[2020-02-12] MEDS: DEXAMETHASONE SOD PHOSPHATE INJ 4 MG/1 ML VIAL IV SCH (09:41)
[2020-02-12] MEDS: ENOXAPARIN SODIUM INJ 40 MG/0.4 ML DISP.SYRIN SUBCUT SCH (09:44)
[2020-02-12] MEDS: REMDESIVIR 100 MG in NORMAL SALINE 250 ML IV SCH (10:12)
[2020-02-12] MEDS: FLUTICASONE NASAL SPRAY 50 MCG/SPRY 120 SPRAY/16 GM NASL SCH ×2 (10:29→21:16)
[2020-02-12] MEDS: POLYVINYL ALCOHOL 1.4% OPH SOLN 15 ML OU SCH ×4 (10:30→21:17)
--- NOTE | 2020-02-12 16:59 | PDOC PROGRESS REPORT ---
Subjective Date:: 02/12/20 Subjective:: Patient seen by the bedside, she was admitted yesterday for the management of CO VID-19 positive test (U07.1, COVID-19) with Acute Respiratory Distress Syndrome (ARDS) (J80, ARDS)(If respiratory failure or sepsis present, add as separate assessment) Related complications She said she feels somewhat better than yesterday 02/12/2020 Patient seen by the bedside, she is admitted forCOVID-19 positive test (U07.1, COVID-19) with Acute Pneumonia (J12.89, Other viral pneumonia) (If respiratory failure or sepsis present, add as separate assessment) Received IV dexamethasone, IV remdesivir She received IV dexamethasone for 10 days, IV remdesivir for 5 days there is slight acute kidney injury, increase fluid rate Reason For Visit: COVID,ACUTE HYPERCAPNIC,HYPOXEMIC RESPIRATORY FAIL Physical Exam Vital Signs: Temp Pulse Resp BP Pulse Ox 97.9 F 56 L 18 141/77 H 98 02/12/20 10:00 02/12/20 14:00 02/12/20 11:44 02/12/20 08:46 02/12/20 11:44 Intake & Output 02/11/20 02/12/20 02/13/20 06:59 06:59 06:59 Intake Total 180 Output Total 250 725 Balance -250 -545 Weight 135.3 kg 135.7 kg General appearance: PRESENT: no acute distress Eye exam: PRESENT: PERRLA Respiratory exam: PRESENT: clear to auscultation audelia Cardiovascular exam: PRESENT: +S1, +S2 GI/Abdominal exam: PRESENT: soft Neurological exam: PRESENT: alert, CN II-XII grossly intact Results Laboratory Results: 02/12/20 04:54 02/12/20 04:54 02/12/20 02/12/20 04:54 04:54 WBC 4.3 RBC 4.17 Hgb 12.3 Hct 38.0 MCV 91 MCH 29.5 MCHC 32.4 RDW 15.6 H Plt Count 115 L Seg Neutrophils % 45.1 Sodium 138.8 Potassium 3.3 L Chloride 99 Carbon Dioxide 29 Anion Gap 11 BUN 23 H Creatinine 1.30 H Est GFR ( Amer) 49 L Glucose 134 H Calcium 9.6 Total Bilirubin 0.3 AST 35 Alkaline Phosphatase 79 Total Protein 7.2 Albumin 4.1 02/10/20 21:05 Throat Throat Culture - Final NORMAL SCAR 02/10/20 02/10/20 02/11/20 11:57 18:07 04:29 Creatine Kinase 622 H Troponin I < 0.012 NT-Pro-B Natriuret Pep 55 02/12/20 04:54 Creatine Kinase 430 H Troponin I NT-Pro-B Natriuret Pep Impressions: Chest X-Ray 02/10/20 11:05 IMPRESSION: Cardiomegaly. No other significant findings. Chest CT 02/11/20 00:00 IMPRESSION: 1. Borderline main pulmonary artery/pulmonary hypertension. Borderline ascending aortic aneurysm. Calcifications of the aortic annulus. Suspicious for aortic valve disease. 2. Cardiomegaly mainly left heart. 3. Reduced lung volumes bilaterally worse compared to previous study. Mild vascular congestion without overt acute infiltrate. 4. Atherosclerotic branches of the abdominal aorta with suspected stenosis. 5. Gallstones without acute biliary dilatation. 6. Mild diffuse enlargement of thyroid gland unchanged. Assessment & Plan - Diagnosis (1) Acute hypoxemic respiratory failure Is this a current diagnosis for this admission?: Yes Plan: She will continue supplemental oxygen via nasal cannula (2) COVID-19 Is this a current diagnosis for this admission?: Yes Plan: She will continue IV dexamethasone, remdesivir,Continue all other treatment (3) CVA, old, hemiparesis Is this a current diagnosis for this admission?: Yes Plan: Continue bronchodilators (4) COPD (chronic obstructive pulmonary disease) Qualifiers: COPD type: COPD with acute exacerbation Qualified Code(s): J44.1 - Chronic obstructive pulmonary disease with (acute) exacerbation Is this a current diagnosis for this admission?: Yes (5) Acute kidney injury Is this a current diagnosis for this admission?: Yes Plan: This most likely prerenal, increase fluid infusion rate - Time Time Spent with patient: 35 or more minutes Level of Care: IMCU Medications reviewed and adjusted accordingly: Yes Anticipated discharge: Home Anticipated DC Timeframe: Other - Inpatient Certification Based on my medical assessment, after consideration of the patient's comorbidities, presenting symptoms, or acuity I expect that the services needed warrant INPATIENT care.: Yes I certify that my determination is in accordance with my understanding of Medicare's requirements for reasonable and necessary INPATIENT services [42 CFR 412.3e].: Yes
[2020-02-12] MEDS: AZITHROMYCIN 250 MG TABLET PO SCH (18:03)
[2020-02-12] MEDS: ATORVASTATIN CALCIUM 80 MG TABLET PO SCH (21:15)
[2020-02-12] MEDS: RINGERS SOLUTION,LACTATED 1,000 ML IV PRN (21:34)
[2020-02-13 05:29] LABS: ABSOLUTE LYMPHOCYTES (AUTO) 1.7 10^3/uL (0.5-4.7); ABSOLUTE MONOCYTES (AUTO) 0.5 10^3/uL (0.1-1.4); ABSOLUTE NEUT (AUTO) 2.9 10^3/uL (1.7-8.2); BASOPHILS % (AUTO) 0.1 % (0-2); HEMATOCRIT 37.8 % (36.0-47.0); HEMOGLOBIN 12.2 g/dL (12.0-15.5); LYMPHOCYTES % (AUTO) 33.7 % (13-45); MEAN CORPUSCULAR HEMOGLOBIN 29.6 pg (27.0-33.4); MEAN CORPUSCULAR HGB CONC 32.3 g/dL (32.0-36.0); MEAN CORPUSCULAR VOLUME 92 fl (80-97); MONOCYTES % (AUTO) 10.2 % (3-13); PLATELET COUNT 125 10^3/uL (150-450); RED BLOOD COUNT 4.12 10^6/uL (3.72-5.28); RED CELL DISTRIBUTION WIDTH 15.5 % (11.5-14.0); TOTAL CELLS COUNTED % (AUTO) 100 %; WHITE BLOOD COUNT 5.2 10^3/uL (4.0-10.5)
[2020-02-13 05:52] LABS: ALKALINE PHOSPHATASE 70 U/L (38-126); ANION GAP 9 (5-19); ASPARTATE AMINO TRANSFERASE 32 U/L (14-36); BILIRUBIN,DIRECT 0.2 mg/dL (0.0-0.4); BILIRUBIN,TOTAL 0.4 mg/dL (0.2-1.3); BLOOD UREA NITROGEN 28 mg/dL (7-20); CALCIUM 9.6 mg/dL (8.4-10.2); CARBON DIOXIDE 31 mmol/L (22-30); CHLORIDE 100 mmol/L (98-107); CREATINE KINASE 309 U/L (30-135); GLUCOSE 122 mg/dL (75-110); POTASSIUM 3.2 mmol/L (3.6-5.0); TOTAL PROTEIN 7.2 g/dL (6.3-8.2)
[2020-02-13] MEDS: GABAPENTIN 300 MG CAPSULE PO SCH ×3 (06:49→21:44)
[2020-02-13] MEDS: HYDRALAZINE HCL 50 MG TABLET PO SCH ×3 (06:49→21:43)
[2020-02-13] MEDS: ARIPIPRAZOLE 5 MG TABLET PO SCH (08:36)
[2020-02-13] MEDS: CLOPIDOGREL BISULFATE 75 MG TABLET PO SCH (08:36)
[2020-02-13] MEDS: FUROSEMIDE 40 MG TABLET PO SCH (08:36)
[2020-02-13] MEDS: CHLORTHALIDONE 25 MG TABLET PO SCH (08:36)
[2020-02-13] MEDS: RINGERS SOLUTION,LACTATED 1,000 ML IV PRN (08:36)
[2020-02-13] MEDS: ENOXAPARIN SODIUM INJ 40 MG/0.4 ML DISP.SYRIN SUBCUT SCH (11:24)
[2020-02-13] MEDS: REMDESIVIR 100 MG in NORMAL SALINE 250 ML IV SCH (11:43)
[2020-02-13] MEDS: DEXAMETHASONE SOD PHOSPHATE INJ 4 MG/1 ML VIAL IV SCH (11:43)
[2020-02-13] MEDS: ASCORBIC ACID 500 MG TABLET PO SCH (11:44)
[2020-02-13] MEDS: CHOLECALCIFEROL (D3) 1,000 UNIT (25 MCG) TABLET PO SCH (11:44)
[2020-02-13] MEDS: ZINC SULFATE 220 MG CAPSULE PO SCH (11:44)
[2020-02-13] MEDS: ESCITALOPRAM OXALATE 10 MG TABLET PO SCH (11:44)
[2020-02-13] MEDS: POLYVINYL ALCOHOL 1.4% OPH SOLN 15 ML OU SCH ×4 (11:45→21:41)
[2020-02-13] MEDS: ASPIRIN 81 MG TABLET, ENT COATED PO SCH (11:46)
[2020-02-13] MEDS: FLUTICASONE NASAL SPRAY 50 MCG/SPRY 120 SPRAY/16 GM NASL SCH ×2 (11:47→21:40)
[2020-02-13] MEDS: CLONIDINE HCL 0.1 MG TABLET PO SCH ×2 (12:32→21:43)
[2020-02-13] MEDS: LABETALOL HCL 200 MG TABLET PO SCH ×2 (12:32→21:44)
[2020-02-13] MEDS: VALSARTAN 160 MG TABLET PO SCH (12:32)
[2020-02-13] MEDS: AMLODIPINE BESYLATE 10 MG TABLET PO SCH (12:32)
[2020-02-13] MEDS: POTASSI CL 20 MEQ/50 ML RIDER 20 MEQ/50 ML RTUPB IV SCH ×2 (13:42→15:16)
[2020-02-13] MEDS ORDERED: POTASSI CL 20 MEQ/50 ML RIDER 20 MEQ/50 ML RTUPB IV ONE (15:16)
[2020-02-13] MEDS ORDERED: POTASSIUM CHLORIDE 10 MEQ TABLET.ER PO ONE (17:22)
--- NOTE | 2020-02-13 17:34 | PDOC PROGRESS REPORT ---
Subjective Date:: 02/13/20 Subjective:: Patient seen by the bedside, she was admitted yesterday for the management of CO VID-19 positive test (U07.1, COVID-19) with Acute Respiratory Distress Syndrome (ARDS) (J80, ARDS)(If respiratory failure or sepsis present, add as separate assessment) Related complications She said she feels somewhat better than yesterday 02/12/2020 Patient seen by the bedside, she is admitted forCOVID-19 positive test (U07.1, COVID-19) with Acute Pneumonia (J12.89, Other viral pneumonia) (If respiratory failure or sepsis present, add as separate assessment) Received IV dexamethasone, IV remdesivir She received IV dexamethasone for 10 days, IV remdesivir for 5 days there is slight acute kidney injury, increase fluid rate 02/13/2020 Patient seen by the bedside, I discussed her condition with the son today, she has hypokalemia most likely from combination of furosemide, IV fluid, DC IV fluid DC furosemide. She has history of CVA she is on dual Plavix and aspirin there is no advantage with the use of Plavix and aspirin in the setting of CVA, studies have shown that the use of dual antiplatelet in CVA only increase the risk of bleed without benefit of preventing another episode of ischemic stroke. The baby aspirin will be discontinued she will continue Plavix Reason For Visit: COVID,ACUTE HYPERCAPNIC,HYPOXEMIC RESPIRATORY FAIL Physical Exam Vital Signs: Temp Pulse Resp BP Pulse Ox 98.7 F 51 L 18 140/75 H 100 02/13/20 12:28 02/13/20 14:00 02/13/20 12:28 02/13/20 12:28 02/13/20 12:28 Intake & Output 02/12/20 02/13/20 02/14/20 06:59 06:59 06:59 Intake Total 180 1730 1549 Output Total 725 1400 800 Balance -545 330 749 Weight 135.7 kg 137.4 kg 137.4 kg General appearance: PRESENT: no acute distress Eye exam: PRESENT: PERRLA Respiratory exam: PRESENT: clear to auscultation audelia Cardiovascular exam: PRESENT: +S1, +S2 Murmur grade: 3 GI/Abdominal exam: PRESENT: soft Neurological exam: PRESENT: alert, other Results Laboratory Results: 02/13/20 04:43 02/13/20 04:43 02/13/20 02/13/20 04:43 04:43 WBC 5.2 RBC 4.12 Hgb 12.2 Hct 37.8 MCV 92 MCH 29.6 MCHC 32.3 RDW 15.5 H Plt Count 125 L Seg Neutrophils % 56.0 Sodium 140.3 Potassium 3.2 L Chloride 100 Carbon Dioxide 31 H Anion Gap 9 BUN 28 H Creatinine 1.09 Est GFR ( Amer) > 60 Glucose 122 H Calcium 9.6 Total Bilirubin 0.4 AST 32 Alkaline Phosphatase 70 Total Protein 7.2 Albumin 4.0 02/10/20 02/10/20 02/11/20 11:57 18:07 04:29 Creatine Kinase 622 H Troponin I < 0.012 NT-Pro-B Natriuret Pep 55 02/12/20 02/13/20 04:54 04:43 Creatine Kinase 430 H 309 H Troponin I NT-Pro-B Natriuret Pep Impressions: Chest X-Ray 02/10/20 11:05 IMPRESSION: Cardiomegaly. No other significant findings. Chest CT 02/11/20 00:00 IMPRESSION: 1. Borderline main pulmonary artery/pulmonary hypertension. Borderline ascending aortic aneurysm. Calcifications of the aortic annulus. Suspicious for aortic valve disease. 2. Cardiomegaly mainly left heart. 3. Reduced lung volumes bilaterally worse compared to previous study. Mild vascular congestion without overt acute infiltrate. 4. Atherosclerotic branches of the abdominal aorta with suspected stenosis. 5. Gallstones without acute biliary dilatation. 6. Mild diffuse enlargement of thyroid gland unchanged. Assessment & Plan - Diagnosis (1) Acute hypoxemic respiratory failure Is this a current diagnosis for this admission?: Yes Plan: She continues to require supplemental oxygen via nasal cannula at 2 L/min (2) COVID-19 Is this a current diagnosis for this admission?: Yes Plan: She will continue IV dexamethasone, remdesivir,Continue all other treatment (3) CVA, old, hemiparesis Is this a current diagnosis for this admission?: Yes Plan: She has old CVA, there is no benefit with the use of dual antiplatelet, Plavix and aspirin. The combination of does not add any benefit in the prevention of stroke but it may increase risk of bleed including serious intracranial hemorrhage , discontinue aspirin (4) COPD (chronic obstructive pulmonary disease) Qualifiers: COPD type: COPD with acute exacerbation Qualified Code(s): J44.1 - Chronic obstructive pulmonary disease with (acute) exacerbation Is this a current diagnosis for this admission?: Yes (5) Acute kidney injury Is this a current diagnosis for this admission?: Yes Plan: This is resolved (6) Hypokalemia Is this a current diagnosis for this admission?: Yes Plan: This is most likely from combination of IV fluid therapy, furosemide chlortha lidone so plan DC IV fluid DC furosemide correct potassium - Time Time Spent with patient: 35 or more minutes Level of Care: IMCU Medications reviewed and adjusted accordingly: Yes Anticipated discharge: SNF Anticipated DC Timeframe: within 72 hours
[2020-02-13] MEDS: AZITHROMYCIN 250 MG TABLET PO SCH (17:59)
[2020-02-13] MEDS: ATORVASTATIN CALCIUM 80 MG TABLET PO SCH (21:43)
[2020-02-14] MEDS: HYDRALAZINE HCL 50 MG TABLET PO SCH ×3 (05:34→21:53)
[2020-02-14] MEDS: GABAPENTIN 300 MG CAPSULE PO SCH ×3 (05:35→21:53)
[2020-02-14 05:52] LABS: ABSOLUTE LYMPHOCYTES (AUTO) 1.5 10^3/uL (0.5-4.7); ABSOLUTE MONOCYTES (AUTO) 0.5 10^3/uL (0.1-1.4); ABSOLUTE NEUT (AUTO) 2.7 10^3/uL (1.7-8.2); HEMATOCRIT 38.6 % (36.0-47.0); HEMOGLOBIN 12.6 g/dL (12.0-15.5); LYMPHOCYTES % (AUTO) 32.1 % (13-45); MEAN CORPUSCULAR HEMOGLOBIN 29.6 pg (27.0-33.4); MEAN CORPUSCULAR HGB CONC 32.6 g/dL (32.0-36.0); MEAN CORPUSCULAR VOLUME 91 fl (80-97); MONOCYTES % (AUTO) 10.3 % (3-13); PLATELET COUNT 132 10^3/uL (150-450); RED BLOOD COUNT 4.26 10^6/uL (3.72-5.28); RED CELL DISTRIBUTION WIDTH 15.8 % (11.5-14.0); SEGMENTED NEUTROPHILS % (AUTO) 57.6 % (42-78); TOTAL CELLS COUNTED % (AUTO) 100 %; WHITE BLOOD COUNT 4.7 10^3/uL (4.0-10.5)
[2020-02-14 06:06] LABS: ALBUMIN 4.3 g/dL (3.5-5.0); ALKALINE PHOSPHATASE 77 U/L (38-126); ANION GAP 9 (5-19); ASPARTATE AMINO TRANSFERASE 33 U/L (14-36); BILIRUBIN,DIRECT 0.2 mg/dL (0.0-0.4); BILIRUBIN,TOTAL 0.6 mg/dL (0.2-1.3); BLOOD UREA NITROGEN 30 mg/dL (7-20); CALCIUM 9.9 mg/dL (8.4-10.2); CARBON DIOXIDE 33 mmol/L (22-30); CHLORIDE 99 mmol/L (98-107); CREATINE KINASE 207 U/L (30-135); GLUCOSE 131 mg/dL (75-110); POTASSIUM 3.5 mmol/L (3.6-5.0); TOTAL PROTEIN 7.5 g/dL (6.3-8.2)
[2020-02-14] MEDS: ENOXAPARIN SODIUM INJ 40 MG/0.4 ML DISP.SYRIN SUBCUT SCH ×2 (10:00→10:06)
[2020-02-14] MEDS: ASPIRIN 81 MG TABLET, ENT COATED PO SCH (10:00)
[2020-02-14] MEDS: ESCITALOPRAM OXALATE 10 MG TABLET PO SCH (10:01)
[2020-02-14] MEDS: CLOPIDOGREL BISULFATE 75 MG TABLET PO SCH (10:01)
[2020-02-14] MEDS: VALSARTAN 160 MG TABLET PO SCH (10:01)
[2020-02-14] MEDS: CLONIDINE HCL 0.1 MG TABLET PO SCH ×2 (10:01→21:52)
[2020-02-14] MEDS: LABETALOL HCL 200 MG TABLET PO SCH ×2 (10:02→21:52)
[2020-02-14] MEDS: ARIPIPRAZOLE 5 MG TABLET PO SCH (10:02)
[2020-02-14] MEDS: AMLODIPINE BESYLATE 10 MG TABLET PO SCH (10:02)
[2020-02-14] MEDS: CHOLECALCIFEROL (D3) 1,000 UNIT (25 MCG) TABLET PO SCH (10:02)
[2020-02-14] MEDS: ZINC SULFATE 220 MG CAPSULE PO SCH (10:03)
[2020-02-14] MEDS: CHLORTHALIDONE 25 MG TABLET PO SCH (10:03)
[2020-02-14] MEDS: DEXAMETHASONE SOD PHOSPHATE INJ 4 MG/1 ML VIAL IV SCH (10:04)
[2020-02-14] MEDS: FLUTICASONE NASAL SPRAY 50 MCG/SPRY 120 SPRAY/16 GM NASL SCH ×2 (10:19→21:53)
[2020-02-14] MEDS: POLYVINYL ALCOHOL 1.4% OPH SOLN 15 ML OU SCH ×4 (10:19→21:53)
[2020-02-14] MEDS: REMDESIVIR 100 MG in NORMAL SALINE 250 ML IV SCH (11:08)
[2020-02-14] MEDS: AZITHROMYCIN 250 MG TABLET PO SCH (17:56)
--- NOTE | 2020-02-14 18:14 | PDOC PROGRESS REPORT ---
Subjective Date:: 02/14/20 Subjective:: Patient seen by the bedside, she was admitted yesterday for the management of CO VID-19 positive test (U07.1, COVID-19) with Acute Respiratory Distress Syndrome (ARDS) (J80, ARDS)(If respiratory failure or sepsis present, add as separate assessment) Related complications She said she feels somewhat better than yesterday 02/12/2020 Patient seen by the bedside, she is admitted forCOVID-19 positive test (U07.1, COVID-19) with Acute Pneumonia (J12.89, Other viral pneumonia) (If respiratory failure or sepsis present, add as separate assessment) Received IV dexamethasone, IV remdesivir She received IV dexamethasone for 10 days, IV remdesivir for 5 days there is slight acute kidney injury, increase fluid rate 02/13/2020 Patient seen by the bedside, I discussed her condition with the son today, she has hypokalemia most likely from combination of furosemide, IV fluid, DC IV fluid DC furosemide. She has history of CVA she is on dual Plavix and aspirin there is no advantage with the use of Plavix and aspirin in the setting of CVA, studies have shown that the use of dual antiplatelet in CVA only increase the risk of bleed without benefit of preventing another episode of ischemic stroke. The baby aspirin will be discontinued she will continue Plavix 02/14/2020 Patient seen by the bedside, patient making progress Reason For Visit: COVID,ACUTE HYPERCAPNIC,HYPOXEMIC RESPIRATORY FAIL Physical Exam Vital Signs: Temp Pulse Resp BP Pulse Ox 98.2 F 56 L 20 121/93 H 100 02/14/20 15:41 02/14/20 15:41 02/14/20 15:41 02/14/20 15:41 02/14/20 15:41 Intake & Output 02/13/20 02/14/20 02/15/20 06:59 06:59 06:59 Intake Total 1730 3039 250 Output Total 1400 2900 Balance 330 139 250 Weight 137.4 kg 137.9 kg General appearance: PRESENT: no acute distress Eye exam: PRESENT: PERRLA Respiratory exam: PRESENT: clear to auscultation audelia Cardiovascular exam: PRESENT: +S1, +S2 Murmur grade: 3 GI/Abdominal exam: PRESENT: soft Neurological exam: PRESENT: alert, motor sensory deficit Results Laboratory Results: 02/14/20 05:20 02/14/20 05:20 02/14/20 02/14/20 05:20 05:20 WBC 4.7 RBC 4.26 Hgb 12.6 Hct 38.6 MCV 91 MCH 29.6 MCHC 32.6 RDW 15.8 H Plt Count 132 L Seg Neutrophils % 57.6 Sodium 140.6 Potassium 3.5 L Chloride 99 Carbon Dioxide 33 H Anion Gap 9 BUN 30 H Creatinine 0.96 Est GFR ( Amer) > 60 Glucose 131 H Calcium 9.9 Total Bilirubin 0.6 AST 33 Alkaline Phosphatase 77 Total Protein 7.5 Albumin 4.3 02/10/20 02/10/20 02/11/20 11:57 18:07 04:29 Creatine Kinase 622 H Troponin I < 0.012 NT-Pro-B Natriuret Pep 55 02/12/20 02/13/20 02/14/20 04:54 04:43 05:20 Creatine Kinase 430 H 309 H 207 H Troponin I NT-Pro-B Natriuret Pep Impressions: Chest X-Ray 02/10/20 11:05 IMPRESSION: Cardiomegaly. No other significant findings. Chest CT 02/11/20 00:00 IMPRESSION: 1. Borderline main pulmonary artery/pulmonary hypertension. Borderline ascending aortic aneurysm. Calcifications of the aortic annulus. Suspicious for aortic valve disease. 2. Cardiomegaly mainly left heart. 3. Reduced lung volumes bilaterally worse compared to previous study. Mild vascular congestion without overt acute infiltrate. 4. Atherosclerotic branches of the abdominal aorta with suspected stenosis. 5. Gallstones without acute biliary dilatation. 6. Mild diffuse enlargement of thyroid gland unchanged. Assessment & Plan - Diagnosis (1) Acute hypoxemic respiratory failure Is this a current diagnosis for this admission?: Yes Plan: She continues to require supplemental oxygen via nasal cannula at 2 L/min (2) COVID-19 Is this a current diagnosis for this admission?: Yes Plan: She will continue IV dexamethasone, remdesivir,Continue all other treatment (3) CVA, old, hemiparesis Is this a current diagnosis for this admission?: Yes Plan: She has old CVA, there is no benefit with the use of dual antiplatelet, Plavix and aspirin. The combination of does not add any benefit in the prevention of stroke but it may increase risk of bleed including serious intracranial hemorrhage , discontinue aspirin (4) COPD (chronic obstructive pulmonary disease) Qualifiers: COPD type: COPD with acute exacerbation Qualified Code(s): J44.1 - Chronic obstructive pulmonary disease with (acute) exacerbation Is this a current diagnosis for this admission?: Yes (5) Acute kidney injury Is this a current diagnosis for this admission?: Yes Plan: This is resolved (6) Hypokalemia Is this a current diagnosis for this admission?: Yes Plan: This is most likely from combination of IV fluid therapy, furosemide chlorthalidone so plan DC IV fluid DC furosemide correct potassium - Time Time Spent with patient: 25-34 minutes Level of Care: IMCU Anticipated discharge: SNF Anticipated DC Timeframe: Other
[2020-02-14] MEDS: ATORVASTATIN CALCIUM 80 MG TABLET PO SCH (21:52)
[2020-02-15] MEDS: GABAPENTIN 300 MG CAPSULE PO SCH ×3 (05:50→21:31)
[2020-02-15] MEDS: HYDRALAZINE HCL 50 MG TABLET PO SCH ×3 (05:50→21:31)
[2020-02-15 06:18] LABS: HEMOGLOBIN 12.2 g/dL (12.0-15.5); MONOCYTES % (AUTO) 10.2 % (3-13); TOTAL CELLS COUNTED % (AUTO) 100 %
[2020-02-15 06:35] LABS: ABSOLUTE LYMPHOCYTES (AUTO) 1.7 10^3/uL (0.5-4.7); ABSOLUTE MONOCYTES (AUTO) 0.5 10^3/uL (0.1-1.4); ABSOLUTE NEUT (AUTO) 3.1 10^3/uL (1.7-8.2); BASOPHILS % (AUTO) 0.1 % (0-2); EOSINOPHILS % (AUTO) 0.1 % (0-6); HEMATOCRIT 37.4 % (36.0-47.0); MEAN CORPUSCULAR HEMOGLOBIN 29.6 pg (27.0-33.4); MEAN CORPUSCULAR HGB CONC 32.7 g/dL (32.0-36.0); MEAN CORPUSCULAR VOLUME 91 fl (80-97); PLATELET COUNT 142 10^3/uL (150-450); RED BLOOD COUNT 4.13 10^6/uL (3.72-5.28); RED CELL DISTRIBUTION WIDTH 15.6 % (11.5-14.0); SEGMENTED NEUTROPHILS % (AUTO) 57.6 % (42-78); WHITE BLOOD COUNT 5.3 10^3/uL (4.0-10.5)
[2020-02-15 06:50] LABS: ALKALINE PHOSPHATASE 68 U/L (38-126); ANION GAP 10 (5-19); ASPARTATE AMINO TRANSFERASE 33 U/L (14-36); BILIRUBIN,DIRECT 0.2 mg/dL (0.0-0.4); BILIRUBIN,TOTAL 0.6 mg/dL (0.2-1.3); BLOOD UREA NITROGEN 30 mg/dL (7-20); CALCIUM 9.5 mg/dL (8.4-10.2); CARBON DIOXIDE 31 mmol/L (22-30); CHLORIDE 100 mmol/L (98-107); CREATINE KINASE 201 U/L (30-135); GLUCOSE 117 mg/dL (75-110); POTASSIUM 3.1 mmol/L (3.6-5.0)
[2020-02-15] MEDS: ENOXAPARIN SODIUM INJ 40 MG/0.4 ML DISP.SYRIN SUBCUT SCH (10:21)
[2020-02-15] MEDS: DEXAMETHASONE SOD PHOSPHATE INJ 4 MG/1 ML VIAL IV SCH (10:21)
[2020-02-15] MEDS: VALSARTAN 160 MG TABLET PO SCH (10:22)
[2020-02-15] MEDS: CLONIDINE HCL 0.1 MG TABLET PO SCH ×2 (10:22→21:31)
[2020-02-15] MEDS: LABETALOL HCL 200 MG TABLET PO SCH ×2 (10:23→21:32)
[2020-02-15] MEDS: ASPIRIN 81 MG TABLET, ENT COATED PO SCH (10:23)
[2020-02-15] MEDS: CHOLECALCIFEROL (D3) 1,000 UNIT (25 MCG) TABLET PO SCH (10:23)
[2020-02-15] MEDS: AMLODIPINE BESYLATE 10 MG TABLET PO SCH (10:23)
[2020-02-15] MEDS: ESCITALOPRAM OXALATE 10 MG TABLET PO SCH (10:24)
[2020-02-15] MEDS: ARIPIPRAZOLE 5 MG TABLET PO SCH (10:24)
[2020-02-15] MEDS: ZINC SULFATE 220 MG CAPSULE PO SCH (10:24)
[2020-02-15] MEDS: CHLORTHALIDONE 25 MG TABLET PO SCH (10:24)
[2020-02-15] MEDS: CLOPIDOGREL BISULFATE 75 MG TABLET PO SCH (10:24)
[2020-02-15] MEDS: FLUTICASONE NASAL SPRAY 50 MCG/SPRY 120 SPRAY/16 GM NASL SCH ×2 (10:58→22:09)
[2020-02-15] MEDS: POLYVINYL ALCOHOL 1.4% OPH SOLN 15 ML OU SCH ×4 (10:58→22:09)
[2020-02-15] MEDS: REMDESIVIR 100 MG in NORMAL SALINE 250 ML IV SCH (11:10)
[2020-02-15] MEDS: AZITHROMYCIN 250 MG TABLET PO SCH (17:26)
--- NOTE | 2020-02-15 18:36 | PDOC PROGRESS REPORT ---
Subjective Date:: 02/15/20 Subjective:: Patient seen by the bedside, she was admitted yesterday for the management of CO VID-19 positive test (U07.1, COVID-19) with Acute Respiratory Distress Syndrome (ARDS) (J80, ARDS)(If respiratory failure or sepsis present, add as separate assessment) Related complications She said she feels somewhat better than yesterday 02/12/2020 Patient seen by the bedside, she is admitted forCOVID-19 positive test (U07.1, COVID-19) with Acute Pneumonia (J12.89, Other viral pneumonia) (If respiratory failure or sepsis present, add as separate assessment) Received IV dexamethasone, IV remdesivir She received IV dexamethasone for 10 days, IV remdesivir for 5 days there is slight acute kidney injury, increase fluid rate 02/13/2020 Patient seen by the bedside, I discussed her condition with the son today, she has hypokalemia most likely from combination of furosemide, IV fluid, DC IV fluid DC furosemide. She has history of CVA she is on dual Plavix and aspirin there is no advantage with the use of Plavix and aspirin in the setting of CVA, studies have shown that the use of dual antiplatelet in CVA only increase the risk of bleed without benefit of preventing another episode of ischemic stroke. The baby aspirin will be discontinued she will continue Plavix 02/14/2020 Patient seen by the bedside, patient making progress Patient seen by the bedside there is no new complaints, she has hypokalemia this will be replaced Reason For Visit: COVID,ACUTE HYPERCAPNIC,HYPOXEMIC RESPIRATORY FAIL Physical Exam Vital Signs: Temp Pulse Resp BP Pulse Ox 98.4 F 52 L 20 141/79 H 100 02/15/20 15:19 02/15/20 15:19 02/15/20 15:19 02/15/20 15:19 02/15/20 15:19 Intake & Output 02/14/20 02/15/20 02/16/20 06:59 06:59 06:59 Intake Total 3039 590 890 Output Total 2900 1400 750 Balance 139 -810 140 Weight 137.9 kg 136 kg General appearance: PRESENT: no acute distress Eye exam: PRESENT: PERRLA Respiratory exam: PRESENT: clear to auscultation audelia Cardiovascular exam: PRESENT: +S1, +S2 Murmur grade: 3 GI/Abdominal exam: PRESENT: soft Results Laboratory Results: 02/15/20 04:55 02/15/20 04:55 02/15/20 02/15/20 04:55 04:55 WBC 5.3 RBC 4.13 Hgb 12.2 Hct 37.4 MCV 91 MCH 29.6 MCHC 32.7 RDW 15.6 H Plt Count 142 L Seg Neutrophils % 57.6 Sodium 140.7 Potassium 3.1 L Chloride 100 Carbon Dioxide 31 H Anion Gap 10 BUN 30 H Creatinine 0.96 Est GFR ( Amer) > 60 Glucose 117 H Calcium 9.5 Total Bilirubin 0.6 AST 33 Alkaline Phosphatase 68 Total Protein 7.0 Albumin 4.0 02/10/20 14:37 Blood Blood Culture - Final NO GROWTH IN 5 DAYS 02/10/20 11:57 Blood Blood Culture - Final NO GROWTH IN 5 DAYS 02/10/20 02/10/20 02/11/20 11:57 18:07 04:29 Creatine Kinase 622 H Troponin I < 0.012 NT-Pro-B Natriuret Pep 55 02/12/20 02/13/20 02/14/20 04:54 04:43 05:20 Creatine Kinase 430 H 309 H 207 H Troponin I NT-Pro-B Natriuret Pep 02/15/20 04:55 Creatine Kinase 201 H Troponin I NT-Pro-B Natriuret Pep Impressions: Chest X-Ray 02/10/20 11:05 IMPRESSION: Cardiomegaly. No other significant findings. Chest CT 02/11/20 00:00 IMPRESSION: 1. Borderline main pulmonary artery/pulmonary hypertension. Borderline ascending aortic aneurysm. Calcifications of the aortic annulus. Suspicious for aortic valve disease. 2. Cardiomegaly mainly left heart. 3. Reduced lung volumes bilaterally worse compared to previous study. Mild vascular congestion without overt acute infiltrate. 4. Atherosclerotic branches of the abdominal aorta with suspected stenosis. 5. Gallstones without acute biliary dilatation. 6. Mild diffuse enlargement of thyroid gland unchanged. Assessment & Plan - Diagnosis (1) Acute hypoxemic respiratory failure Is this a current diagnosis for this admission?: Yes Plan: She continues to require supplemental oxygen via nasal cannula at 2 L/min (2) COVID-19 Is this a current diagnosis for this admission?: Yes Plan: She will continue IV dexamethasone, remdesivir,Continue all other treatment (3) CVA, old, hemiparesis Is this a current diagnosis for this admission?: Yes Plan: She has old CVA, there is no benefit with the use of dual antiplatelet, Plavix and aspirin. The combination of does not add any benefit in the prevention of stroke but it may increase risk of bleed including serious intracranial hemorrhage , discontinue aspirin (4) COPD (chronic obstructive pulmonary disease) Qualifiers: COPD type: COPD with acute exacerbation Qualified Code(s): J44.1 - Chronic obstructive pulmonary disease with (acute) exacerbation Is this a current diagnosis for this admission?: Yes (5) Acute kidney injury Is this a current diagnosis for this admission?: Yes Plan: This is resolved (6) Hypokalemia Is this a current diagnosis for this admission?: Yes Plan: Replace potassium - Time Time Spent with patient: 35 or more minutes Level of Care: IMCU Medications reviewed and adjusted accordingly: Yes Anticipated discharge: SNF Anticipated DC Timeframe: within 72 hours
[2020-02-15] MEDS ORDERED: POTASSIUM CHLORIDE 10 MEQ TABLET.ER PO ONE (19:33)
[2020-02-15] MEDS: POTASSIUM CHLORIDE 10 MEQ TABLET.ER PO SCH ×2 (20:12→21:26)
[2020-02-15] MEDS: ATORVASTATIN CALCIUM 80 MG TABLET PO SCH (21:31)
[2020-02-16 05:37] LABS: ABSOLUTE LYMPHOCYTES (AUTO) 1.6 10^3/uL (0.5-4.7); ABSOLUTE MONOCYTES (AUTO) 0.7 10^3/uL (0.1-1.4); ABSOLUTE NEUT (AUTO) 4.1 10^3/uL (1.7-8.2); BASOPHILS % (AUTO) 0.1 % (0-2); EOSINOPHILS % (AUTO) 0.1 % (0-6); LYMPHOCYTES % (AUTO) 25.3 % (13-45); MEAN CORPUSCULAR HEMOGLOBIN 29.5 pg (27.0-33.4); MEAN CORPUSCULAR HGB CONC 32.4 g/dL (32.0-36.0); MEAN CORPUSCULAR VOLUME 91 fl (80-97); MONOCYTES % (AUTO) 10.7 % (3-13); PLATELET COUNT 158 10^3/uL (150-450); RED BLOOD COUNT 4.06 10^6/uL (3.72-5.28); RED CELL DISTRIBUTION WIDTH 15.6 % (11.5-14.0); SEGMENTED NEUTROPHILS % (AUTO) 63.8 % (42-78); TOTAL CELLS COUNTED % (AUTO) 100 %; WHITE BLOOD COUNT 6.4 10^3/uL (4.0-10.5)
[2020-02-16] MEDS: HYDRALAZINE HCL 50 MG TABLET PO SCH ×3 (05:58→22:11)
[2020-02-16] MEDS: POTASSIUM CHLORIDE 10 MEQ TABLET.ER PO SCH ×3 (05:58→22:11)
[2020-02-16] MEDS: GABAPENTIN 300 MG CAPSULE PO SCH ×3 (05:58→22:11)
[2020-02-16 06:02] LABS: ALKALINE PHOSPHATASE 64 U/L (38-126); ANION GAP 10 (5-19); ASPARTATE AMINO TRANSFERASE 40 U/L (14-36); BILIRUBIN,DIRECT 0.2 mg/dL (0.0-0.4); BILIRUBIN,TOTAL 0.5 mg/dL (0.2-1.3); BLOOD UREA NITROGEN 32 mg/dL (7-20); CALCIUM 9.5 mg/dL (8.4-10.2); CARBON DIOXIDE 31 mmol/L (22-30); CHLORIDE 101 mmol/L (98-107); CREATINE KINASE 204 U/L (30-135); GLUCOSE 126 mg/dL (75-110); POTASSIUM 3.5 mmol/L (3.6-5.0); TOTAL PROTEIN 6.9 g/dL (6.3-8.2)
[2020-02-16] MEDS: ARIPIPRAZOLE 5 MG TABLET PO SCH (08:57)
[2020-02-16] MEDS: CHLORTHALIDONE 25 MG TABLET PO SCH (08:57)
[2020-02-16] MEDS: CLOPIDOGREL BISULFATE 75 MG TABLET PO SCH (08:57)
[2020-02-16] MEDS: ESCITALOPRAM OXALATE 10 MG TABLET PO SCH (09:07)
[2020-02-16] MEDS: VALSARTAN 160 MG TABLET PO SCH (09:07)
[2020-02-16] MEDS: CHOLECALCIFEROL (D3) 1,000 UNIT (25 MCG) TABLET PO SCH (09:07)
[2020-02-16] MEDS: LABETALOL HCL 200 MG TABLET PO SCH ×2 (09:07→22:11)
[2020-02-16] MEDS: ZINC SULFATE 220 MG CAPSULE PO SCH (09:07)
[2020-02-16] MEDS: ENOXAPARIN SODIUM INJ 40 MG/0.4 ML DISP.SYRIN SUBCUT SCH (09:08)
[2020-02-16] MEDS: ASPIRIN 81 MG TABLET, ENT COATED PO SCH (09:08)
[2020-02-16] MEDS: CLONIDINE HCL 0.1 MG TABLET PO SCH ×2 (09:08→22:11)
[2020-02-16] MEDS: DEXAMETHASONE SOD PHOSPHATE INJ 4 MG/1 ML VIAL IV SCH (09:08)
[2020-02-16] MEDS: AMLODIPINE BESYLATE 10 MG TABLET PO SCH (09:08)
[2020-02-16] MEDS: POLYVINYL ALCOHOL 1.4% OPH SOLN 15 ML OU SCH ×4 (09:09→22:12)
[2020-02-16] MEDS: FLUTICASONE NASAL SPRAY 50 MCG/SPRY 120 SPRAY/16 GM NASL SCH ×2 (09:09→22:12)
[2020-02-16] MEDS: AZITHROMYCIN 250 MG TABLET PO SCH (18:19)
--- NOTE | 2020-02-16 21:39 | PDOC PROGRESS REPORT ---
Subjective Date:: 02/16/20 Subjective:: Patient seen by the bedside, she was admitted yesterday for the management of CO VID-19 positive test (U07.1, COVID-19) with Acute Respiratory Distress Syndrome (ARDS) (J80, ARDS)(If respiratory failure or sepsis present, add as separate assessment) Related complications She said she feels somewhat better than yesterday 02/12/2020 Patient seen by the bedside, she is admitted forCOVID-19 positive test (U07.1, COVID-19) with Acute Pneumonia (J12.89, Other viral pneumonia) (If respiratory failure or sepsis present, add as separate assessment) Received IV dexamethasone, IV remdesivir She received IV dexamethasone for 10 days, IV remdesivir for 5 days there is slight acute kidney injury, increase fluid rate 02/13/2020 Patient seen by the bedside, I discussed her condition with the son today, she has hypokalemia most likely from combination of furosemide, IV fluid, DC IV fluid DC furosemide. She has history of CVA she is on dual Plavix and aspirin there is no advantage with the use of Plavix and aspirin in the setting of CVA, studies have shown that the use of dual antiplatelet in CVA only increase the risk of bleed without benefit of preventing another episode of ischemic stroke. The baby aspirin will be discontinued she will continue Plavix 02/14/2020 Patient seen by the bedside, patient making progress Patient seen by the bedside there is no new complaints, she has hypokalemia this will be replaced 02/16/2020 Patient seen by the bedside she continues to make progress Reason For Visit: COVID,ACUTE HYPERCAPNIC,HYPOXEMIC RESPIRATORY FAIL Physical Exam Vital Signs: Temp Pulse Resp BP Pulse Ox 98.3 F 56 L 18 151/79 H 100 02/16/20 16:14 02/16/20 16:14 02/16/20 16:14 02/16/20 16:14 02/16/20 16:14 Intake & Output 02/15/20 02/16/20 02/17/20 06:59 06:59 06:59 Intake Total 590 920 300 Output Total 1400 753 Balance -810 167 300 Weight 136 kg 133.8 kg General appearance: PRESENT: no acute distress Eye exam: PRESENT: PERRLA Respiratory exam: PRESENT: clear to auscultation audelia Cardiovascular exam: PRESENT: +S1, +S2 Murmur grade: 3 GI/Abdominal exam: PRESENT: soft Neurological exam: PRESENT: alert Results Laboratory Results: 02/16/20 04:27 02/16/20 04:27 02/16/20 02/16/20 04:27 04:27 WBC 6.4 RBC 4.06 Hgb 12.0 Hct 37.0 MCV 91 MCH 29.5 MCHC 32.4 RDW 15.6 H Plt Count 158 Seg Neutrophils % 63.8 Sodium 141.6 Potassium 3.5 L Chloride 101 Carbon Dioxide 31 H Anion Gap 10 BUN 32 H Creatinine 1.06 Est GFR ( Amer) > 60 Glucose 126 H Calcium 9.5 Total Bilirubin 0.5 AST 40 H Alkaline Phosphatase 64 Total Protein 6.9 Albumin 4.0 02/10/20 02/10/20 02/11/20 11:57 18:07 04:29 Creatine Kinase 622 H Troponin I < 0.012 NT-Pro-B Natriuret Pep 55 02/12/20 02/13/20 02/14/20 04:54 04:43 05:20 Creatine Kinase 430 H 309 H 207 H Troponin I NT-Pro-B Natriuret Pep 02/15/20 02/16/20 04:55 04:27 Creatine Kinase 201 H 204 H Troponin I NT-Pro-B Natriuret Pep Impressions: Chest X-Ray 02/10/20 11:05 IMPRESSION: Cardiomegaly. No other significant findings. Chest CT 02/11/20 00:00 IMPRESSION: 1. Borderline main pulmonary artery/pulmonary hypertension. Borderline ascending aortic aneurysm. Calcifications of the aortic annulus. Suspicious for aortic valve disease. 2. Cardiomegaly mainly left heart. 3. Reduced lung volumes bilaterally worse compared to previous study. Mild vascular congestion without overt acute infiltrate. 4. Atherosclerotic branches of the abdominal aorta with suspected stenosis. 5. Gallstones without acute biliary dilatation. 6. Mild diffuse enlargement of thyroid gland unchanged. Assessment & Plan - Diagnosis (1) Acute hypoxemic respiratory failure Is this a current diagnosis for this admission?: Yes Plan: She continues to require supplemental oxygen via nasal cannula at 2 L/min (2) COVID-19 Is this a current diagnosis for this admission?: Yes Plan: She will continue IV dexamethasone, remdesivir,Continue all other treatment (3) CVA, old, hemiparesis Is this a current diagnosis for this admission?: Yes Plan: She has old CVA, there is no benefit with the use of dual antiplatelet, Plavix and aspirin. The combination of does not add any benefit in the prevention of stroke but it may increase risk of bleed including serious intracranial hemorrh age , discontinue aspirin (4) COPD (chronic obstructive pulmonary disease) Qualifiers: COPD type: COPD with acute exacerbation Qualified Code(s): J44.1 - Chronic obstructive pulmonary disease with (acute) exacerbation Is this a current diagnosis for this admission?: Yes (5) Acute kidney injury Is this a current diagnosis for this admission?: Yes Plan: This is resolved (6) Hypokalemia Is this a current diagnosis for this admission?: Yes Plan: Replace potassium - Time Time Spent with patient: 25-34 minutes Level of Care: IMCU Anticipated discharge: SNF Anticipated DC Timeframe: within 72 hours
[2020-02-16] MEDS: ATORVASTATIN CALCIUM 80 MG TABLET PO SCH (22:11)
[2020-02-17 05:22] LABS: ABSOLUTE MONOCYTES (AUTO) 0.6 10^3/uL (0.1-1.4); ABSOLUTE NEUT (AUTO) 4.1 10^3/uL (1.7-8.2); BASOPHILS % (AUTO) 0.1 % (0-2); EOSINOPHILS % (AUTO) 0.1 % (0-6); HEMATOCRIT 39.8 % (36.0-47.0); HEMOGLOBIN 12.8 g/dL (12.0-15.5); LYMPHOCYTES % (AUTO) 29.6 % (13-45); MEAN CORPUSCULAR HEMOGLOBIN 29.4 pg (27.0-33.4); MEAN CORPUSCULAR HGB CONC 32.2 g/dL (32.0-36.0); MEAN CORPUSCULAR VOLUME 92 fl (80-97); MONOCYTES % (AUTO) 8.4 % (3-13); PLATELET COUNT 171 10^3/uL (150-450); RED BLOOD COUNT 4.35 10^6/uL (3.72-5.28); RED CELL DISTRIBUTION WIDTH 15.8 % (11.5-14.0); SEGMENTED NEUTROPHILS % (AUTO) 61.8 % (42-78); TOTAL CELLS COUNTED % (AUTO) 100 %; WHITE BLOOD COUNT 6.7 10^3/uL (4.0-10.5)
[2020-02-17 05:49] LABS: ALBUMIN 4.2 g/dL (3.5-5.0); ALKALINE PHOSPHATASE 65 U/L (38-126); ANION GAP 6 (5-19); ASPARTATE AMINO TRANSFERASE 46 U/L (14-36); BILIRUBIN,DIRECT 0.2 mg/dL (0.0-0.4); BILIRUBIN,TOTAL 0.6 mg/dL (0.2-1.3); BLOOD UREA NITROGEN 26 mg/dL (7-20); CALCIUM 9.9 mg/dL (8.4-10.2); CARBON DIOXIDE 35 mmol/L (22-30); CHLORIDE 103 mmol/L (98-107); CREATINE KINASE 194 U/L (30-135); GLUCOSE 121 mg/dL (75-110); TOTAL PROTEIN 7.5 g/dL (6.3-8.2)
[2020-02-17] MEDS: GABAPENTIN 300 MG CAPSULE PO SCH ×3 (06:16→22:44)
[2020-02-17] MEDS: POTASSIUM CHLORIDE 10 MEQ TABLET.ER PO SCH ×3 (06:16→22:43)
[2020-02-17] MEDS: HYDRALAZINE HCL 50 MG TABLET PO SCH ×3 (06:17→22:44)
[2020-02-17] MEDS: CHOLECALCIFEROL (D3) 1,000 UNIT (25 MCG) TABLET PO SCH (10:59)
[2020-02-17] MEDS: ARIPIPRAZOLE 5 MG TABLET PO SCH (10:59)
[2020-02-17] MEDS: CLOPIDOGREL BISULFATE 75 MG TABLET PO SCH (10:59)
[2020-02-17] MEDS: CLONIDINE HCL 0.1 MG TABLET PO SCH ×2 (10:59→22:43)
[2020-02-17] MEDS: AMLODIPINE BESYLATE 10 MG TABLET PO SCH (10:59)
[2020-02-17] MEDS: ASPIRIN 81 MG TABLET, ENT COATED PO SCH (10:59)
[2020-02-17] MEDS: VALSARTAN 160 MG TABLET PO SCH (11:00)
[2020-02-17] MEDS: ESCITALOPRAM OXALATE 10 MG TABLET PO SCH (11:00)
[2020-02-17] MEDS: ENOXAPARIN SODIUM INJ 40 MG/0.4 ML DISP.SYRIN SUBCUT SCH (11:00)
[2020-02-17] MEDS: DEXAMETHASONE SOD PHOSPHATE INJ 4 MG/1 ML VIAL IV SCH (11:00)
[2020-02-17] MEDS: LABETALOL HCL 200 MG TABLET PO SCH ×2 (11:00→22:44)
[2020-02-17] MEDS: ZINC SULFATE 220 MG CAPSULE PO SCH (11:00)
[2020-02-17] MEDS: FLUTICASONE NASAL SPRAY 50 MCG/SPRY 120 SPRAY/16 GM NASL SCH ×2 (11:01→22:49)
[2020-02-17] MEDS: CHLORTHALIDONE 25 MG TABLET PO SCH (11:02)
[2020-02-17] MEDS: POLYVINYL ALCOHOL 1.4% OPH SOLN 15 ML OU SCH ×4 (11:02→22:49)
[2020-02-17] MEDS: AZITHROMYCIN 250 MG TABLET PO SCH (17:20)
--- NOTE | 2020-02-17 19:37 | PDOC PROGRESS REPORT ---
Subjective Date:: 02/17/20 Subjective:: Patient seen by the bedside, she was admitted yesterday for the management of CO VID-19 positive test (U07.1, COVID-19) with Acute Respiratory Distress Syndrome (ARDS) (J80, ARDS)(If respiratory failure or sepsis present, add as separate assessment) Related complications She said she feels somewhat better than yesterday 02/12/2020 Patient seen by the bedside, she is admitted forCOVID-19 positive test (U07.1, COVID-19) with Acute Pneumonia (J12.89, Other viral pneumonia) (If respiratory failure or sepsis present, add as separate assessment) Received IV dexamethasone, IV remdesivir She received IV dexamethasone for 10 days, IV remdesivir for 5 days there is slight acute kidney injury, increase fluid rate 02/13/2020 Patient seen by the bedside, I discussed her condition with the son today, she has hypokalemia most likely from combination of furosemide, IV fluid, DC IV fluid DC furosemide. She has history of CVA she is on dual Plavix and aspirin there is no advantage with the use of Plavix and aspirin in the setting of CVA, studies have shown that the use of dual antiplatelet in CVA only increase the risk of bleed without benefit of preventing another episode of ischemic stroke. The baby aspirin will be discontinued she will continue Plavix 02/14/2020 Patient seen by the bedside, patient making progress Patient seen by the bedside there is no new complaints, she has hypokalemia this will be replaced 02/16/2020 Patient seen by the bedside she continues to make progress 02/17/2020 Patient is doing well today, hopefully discharge back to care home tomorrow Reason For Visit: COVID,ACUTE HYPERCAPNIC,HYPOXEMIC RESPIRATORY FAIL Physical Exam Vital Signs: Temp Pulse Resp BP Pulse Ox 97.9 F 53 L 17 115/59 L 100 02/17/20 15:27 02/17/20 15:27 02/17/20 15:27 02/17/20 15:27 02/17/20 15:27 Intake & Output 02/16/20 02/17/20 02/18/20 06:59 06:59 06:59 Intake Total 920 650 640 Output Total 753 0 Balance 167 650 640 Weight 133.8 kg 135 kg 135 kg General appearance: PRESENT: no acute distress Eye exam: PRESENT: PERRLA Respiratory exam: PRESENT: clear to auscultation audelia Cardiovascular exam: PRESENT: +S1, +S2 Murmur grade: 3 Neurological exam: PRESENT: alert Results Laboratory Results: 02/17/20 04:41 02/17/20 04:41 02/17/20 02/17/20 04:41 04:41 WBC 6.7 RBC 4.35 Hgb 12.8 Hct 39.8 MCV 92 MCH 29.4 MCHC 32.2 RDW 15.8 H Plt Count 171 Seg Neutrophils % 61.8 Sodium 144.0 Potassium 4.0 Chloride 103 Carbon Dioxide 35 H Anion Gap 6 BUN 26 H Creatinine 1.00 Est GFR ( Amer) > 60 Glucose 121 H Calcium 9.9 Total Bilirubin 0.6 AST 46 H Alkaline Phosphatase 65 Total Protein 7.5 Albumin 4.2 02/10/20 02/10/20 02/11/20 11:57 18:07 04:29 Creatine Kinase 622 H Troponin I < 0.012 NT-Pro-B Natriuret Pep 55 02/12/20 02/13/20 02/14/20 04:54 04:43 05:20 Creatine Kinase 430 H 309 H 207 H Troponin I NT-Pro-B Natriuret Pep 02/15/20 02/16/20 02/17/20 04:55 04:27 04:41 Creatine Kinase 201 H 204 H 194 H Troponin I NT-Pro-B Natriuret Pep Impressions: Chest X-Ray 02/10/20 11:05 IMPRESSION: Cardiomegaly. No other significant findings. Chest CT 02/11/20 00:00 IMPRESSION: 1. Borderline main pulmonary artery/pulmonary hypertension. Borderline ascending aortic aneurysm. Calcifications of the aortic annulus. Suspicious for aortic valve disease. 2. Cardiomegaly mainly left heart. 3. Reduced lung volumes bilaterally worse compared to previous study. Mild vascular congestion without overt acute infiltrate. 4. Atherosclerotic branches of the abdominal aorta with suspected stenosis. 5. Gallstones without acute biliary dilatation. 6. Mild diffuse enlargement of thyroid gland unchanged. Assessment & Plan - Diagnosis (1) Acute hypoxemic respiratory failure Is this a current diagnosis for this admission?: Yes (2) COVID-19 Is this a current diagnosis for this admission?: Yes (3) CVA, old, hemiparesis Is this a current diagnosis for this admission?: Yes (4) COPD (chronic obstructive pulmonary disease) Qualifiers: COPD type: COPD with acute exacerbation Qualified Code(s): J44.1 - Chronic obstructive pulmonary disease with (acute) exacerbation Is this a current diagnosis for this admission?: Yes (5) Acute kidney injury Is this a current diagnosis for this admission?: Yes (6) Hypokalemia Is this a current diagnosis for this admission?: Yes - Time Time Spent with patient: 25-34 minutes Level of Care: IMCU Medications reviewed and adjusted accordingly: Yes Anticipated discharge: SNF Anticipated DC Timeframe: within 24 hours
[2020-02-17] MEDS: ATORVASTATIN CALCIUM 80 MG TABLET PO SCH (22:48)
[2020-02-18] MEDS: HYDRALAZINE HCL 50 MG TABLET PO SCH ×2 (05:11→14:29)
[2020-02-18] MEDS: GABAPENTIN 300 MG CAPSULE PO SCH ×2 (05:11→14:29)
[2020-02-18] MEDS: POTASSIUM CHLORIDE 10 MEQ TABLET.ER PO SCH ×2 (05:12→14:29)
[2020-02-18 05:15] LABS: ABSOLUTE LYMPHOCYTES (AUTO) 2.9 10^3/uL (0.5-4.7); ABSOLUTE MONOCYTES (AUTO) 0.8 10^3/uL (0.1-1.4); ABSOLUTE NEUT (AUTO) 3.7 10^3/uL (1.7-8.2); BASOPHILS % (AUTO) 0.1 % (0-2); EOSINOPHILS % (AUTO) 0.7 % (0-6); HEMATOCRIT 39.4 % (36.0-47.0); HEMOGLOBIN 12.6 g/dL (12.0-15.5); LYMPHOCYTES % (AUTO) 38.3 % (13-45); MEAN CORPUSCULAR HEMOGLOBIN 29.5 pg (27.0-33.4); MEAN CORPUSCULAR HGB CONC 31.9 g/dL (32.0-36.0); MEAN CORPUSCULAR VOLUME 93 fl (80-97); PLATELET COUNT 187 10^3/uL (150-450); RED BLOOD COUNT 4.26 10^6/uL (3.72-5.28); RED CELL DISTRIBUTION WIDTH 16.2 % (11.5-14.0); SEGMENTED NEUTROPHILS % (AUTO) 49.9 % (42-78); TOTAL CELLS COUNTED % (AUTO) 100 %; WHITE BLOOD COUNT 7.4 10^3/uL (4.0-10.5)
[2020-02-18 05:31] LABS: ALKALINE PHOSPHATASE 63 U/L (38-126); ANION GAP 5 (5-19); ASPARTATE AMINO TRANSFERASE 40 U/L (14-36); BILIRUBIN,DIRECT 0.2 mg/dL (0.0-0.4); BILIRUBIN,TOTAL 0.6 mg/dL (0.2-1.3); BLOOD UREA NITROGEN 32 mg/dL (7-20); CALCIUM 9.7 mg/dL (8.4-10.2); CARBON DIOXIDE 32 mmol/L (22-30); CHLORIDE 106 mmol/L (98-107); CREATINE KINASE 200 U/L (30-135); GLUCOSE 124 mg/dL (75-110); TOTAL PROTEIN 7.1 g/dL (6.3-8.2)
[2020-02-18] MEDS: ESCITALOPRAM OXALATE 10 MG TABLET PO SCH (10:06)
[2020-02-18] MEDS: AMLODIPINE BESYLATE 10 MG TABLET PO SCH (10:06)
[2020-02-18] MEDS: ENOXAPARIN SODIUM INJ 40 MG/0.4 ML DISP.SYRIN SUBCUT SCH (10:07)
[2020-02-18] MEDS: ZINC SULFATE 220 MG CAPSULE PO SCH (10:07)
[2020-02-18] MEDS: CLONIDINE HCL 0.1 MG TABLET PO SCH (10:07)
[2020-02-18] MEDS: ASPIRIN 81 MG TABLET, ENT COATED PO SCH (10:07)
[2020-02-18] MEDS: LABETALOL HCL 200 MG TABLET PO SCH (10:07)
[2020-02-18] MEDS: CLOPIDOGREL BISULFATE 75 MG TABLET PO SCH (10:07)
[2020-02-18] MEDS: ARIPIPRAZOLE 5 MG TABLET PO SCH (10:07)
[2020-02-18] MEDS: DEXAMETHASONE SOD PHOSPHATE INJ 4 MG/1 ML VIAL IV SCH (10:07)
[2020-02-18] MEDS: VALSARTAN 160 MG TABLET PO SCH (10:07)
[2020-02-18] MEDS: FLUTICASONE NASAL SPRAY 50 MCG/SPRY 120 SPRAY/16 GM NASL SCH (10:07)
[2020-02-18] MEDS: CHOLECALCIFEROL (D3) 1,000 UNIT (25 MCG) TABLET PO SCH (10:07)
[2020-02-18] MEDS: POLYVINYL ALCOHOL 1.4% OPH SOLN 15 ML OU SCH ×2 (10:08→14:30)
[2020-02-18] MEDS: CHLORTHALIDONE 25 MG TABLET PO SCH (10:09)
[2020-02-18 13:40] VITALS: BP 107/72
--- NOTE | 2020-02-18 15:26 | PDOC TRANSFER SUMMARY ---
Impression - Admit/DC Date/PCP Admission Date/Primary Care Provider: 02/10/20 15:43 JUDY GONGORA MD Discharge Date: 02/18/20 - Discharge Diagnosis (1) Acute hypoxemic respiratory failure Is this a current diagnosis for this admission?: Yes (2) COVID-19 Is this a current diagnosis for this admission?: Yes (3) CVA, old, hemiparesis Is this a current diagnosis for this admission?: Yes (4) COPD (chronic obstructive pulmonary disease) Is this a current diagnosis for this admission?: Yes (5) Acute kidney injury Is this a current diagnosis for this admission?: Yes (6) Hypokalemia Is this a current diagnosis for this admission?: Yes - Additional Information Referrals: JUDY GONGORA MD [Primary Care Provider] - Follow up as needed Home Medications: RX: Amlodipine/Valsartan [Exforge 10-320 mg Tablet] 1 tab PO QAM 12/08/17 RX: Aripiprazole [Abilify] 10 mg PO QAM 12/08/17 RX: Chlorthalidone [Chlorthalidone 50 mg Tablet] 50 mg PO QAM 12/08/17 RX: Clonidine HCl [Catapres 0.3 mg Tablet] 0.3 mg PO Q12 12/08/17 RX: Clopidogrel Bisulfate [Plavix 75 mg Tablet] 75 mg PO QAM 12/08/17 RX: Doxepin HCl [Silenor] 6 mg PO QHS 12/08/17 RX: Escitalopram Oxalate [Lexapro 10 mg Tablet] 20 mg PO DAILY 12/08/17 RX: Gabapentin [Neurontin 300 mg Capsule] 300 mg PO Q8 12/08/17 RX: Hydralazine HCl [Apresoline 50 mg Tablet] 50 mg PO Q8 12/08/17 RX: Labetalol HCl [Normodyne 200 mg Tablet] 200 mg PO Q12 12/08/17 RX: Albuterol Sulfate [Ventolin Hfa 8 gm Mdi (1 Mdi/ER Disp)] 1 puff IH Q6HP PRN 04/06/18 RX: Atorvastatin Calcium [Lipitor] 80 mg PO QHS 04/06/18 RX: Ipratropium/Albuterol Sulfate [Duoneb 3 ml Ampul] 3 ml NEB RTQ4HP PRN 04/06/18 RX: Docusate Sodium [Colace 100 mg Capsule] 100 mg PO BID #990 capsule 04/10/18 RX: Fluticasone Propionate [Flonase Nasal Baldwin 50 Mcg/Baldwin 16 gm] 2 spray NASL Q12 spray.pump 04/10/18 RX: Acetaminophen [Tylenol] 650 mg PO Q4HP PRN 02/10/20 RX: Acetaminophen [Tylenol] 650 mg PO Q4HP PRN 02/10/20 RX: Carboxymethylcellulose Sodium [Artificial Tears] 1 drop OU QID 02/10/20 RX: Clotrimazole/Betamethasone Dip [Lotrisone Cream 15 gm] 1 applic TOP DAILYP PRN 02/10/20 RX: Fluticasone/Umeclidin/Vilanter [Trelegy 100-62.5-25 Mcg Ellipta 14 Dose/Dpi] 1 inh IH QAM 02/10/20 RX: Furosemide [Lasix 40 mg Tablet] 40 mg PO DAILY 02/10/20 RX: Guaifenesin [Mucinex Sr 600 mg Tablet.sa] 600 mg PO BID 02/10/20 RX: Hydrocodone/Acetaminophen [Hydrocodone-Acetamin 10-325 mg] 1 tab PO Q8HP PRN 02/10/20 RX: Loperamide HCl [Imodium A-D] 2 mg PO ASDIR PRN MDD 8MG 02/10/20 RX: Loperamide HCl [Imodium A-D] 4 mg PO ASDIR PRN MDD 8MG 02/10/20 RX: Loratadine [Claritin 10 mg Tablet] 10 mg PO QAM 02/10/20 RX: Magnesium Hydroxide [Milk of Magnesia 30 ml Udcup] 30 ml PO DAILYP PRN 02/09 RX: Menthol [Biofreeze] 1 applic TOP BID 02/10/20 RX: Potassium Chloride [Klor-Con 10 Meq Tablet ER] 20 meq PO DAILY 02/10/20 RX: Enoxaparin Sodium [Lovenox Inj 40 mg/0.4 ml Disp.syrin] 40 mg SUBCUT DAILY disp.syrin 02/18/20 RX: Potassium Chloride [Klor-Con 10 Meq Tablet ER] 40 meq PO Q8 tablet.er 02/18/20 History of Present Illiness History of Present Illness: KOKO EWING is a 69 year old female, She is a resident of the correction at [facility] She endorsed respiratory symptoms, with cough, wheezing couple of days ago in the correction, a chest x-ray was done that suggest CHF. I felt it was a poor technique chest x-ray, patient is obese. She underwent a rapid Covid test in the correction that was positive, initially attempt was made to isolate the patient in the correction and treat her in the correction, she was started empirically on dexamethasone tablet but patient symptoms was worsening and she requested to be transfer to the emergency room.In the emergency room she was evaluated, she was found to be febrile with temperature 99.4, The arterial blood gas on ambient air, pH7.35, PCO2 47.1, PO2 63.5 arterial oxygen saturation 91.7. Patient is high risk for decompensation, she is morbidly obese, history of CVA with residual right sided hemiplegia, sedentary, bedbound,, because of all these factors it was felt that the best plan of care for this patient will be inpatient care to initiate intravenous dexamethasone, remdesivir Hospital Course Hospital Course: Patient resident of correction she was admitted for the management of acute hypoxemic respiratory failure, due to Covid pneumonia, she was treated with intravenous dexamethasone 6 mg IV daily with intravenous remdesivir. She required supplemental oxygen via nasal cannula. She did not require clinical ventilation she was on noninvasive positive pressure ventilation with BiPAP. She has a history of CVA with right-sided hemiplegia, hypertension, morbid obesity. She also had acute kidney injury felt to be due to prerenal azotemia, this was corrected with IV fluid. She has not required any oxygen at this time she is on ambient air Physical Exam Vital Signs: Temp Pulse Resp BP Pulse Ox 97.7 F 61 19 107/72 98 02/18/20 11:54 02/18/20 11:54 02/18/20 11:54 02/18/20 11:54 02/18/20 11:54 Intake & Output 02/17/20 02/18/20 02/19/20 06:59 06:59 06:59 Intake Total 650 640 580 Output Total 0 375 Balance 650 265 580 Weight 135 kg 135.1 kg General appearance: PRESENT: no acute distress Eye exam: PRESENT: PERRLA Respiratory exam: PRESENT: clear to auscultation audelia Cardiovascular exam: PRESENT: +S1, +S2 GI/Abdominal exam: PRESENT: soft Neurological exam: PRESENT: alert Results Laboratory Results: WBC 7.4 10^3/uL (4.0-10.5) 02/18/20 04:20 RBC 4.26 10^6/uL (3.72-5.28) 02/18/20 04:20 Hgb 12.6 g/dL (12.0-15.5) 02/18/20 04:20 Hct 39.4 % (36.0-47.0) 02/18/20 04:20 MCV 93 fl (80-97) 02/18/20 04:20 MCH 29.5 pg (27.0-33.4) 02/18/20 04:20 MCHC 31.9 g/dL (32.0-36.0) L 02/18/20 04:20 RDW 16.2 % (11.5-14.0) H 02/18/20 04:20 Plt Count 187 10^3/uL (150-450) 02/18/20 04:20 Lymph % (Auto) 38.3 % (13-45) 02/18/20 04:20 Loíza % (Auto) 11.0 % (3-13) 02/18/20 04:20 Eos % (Auto) 0.7 % (0-6) 02/18/20 04:20 Baso % (Auto) 0.1 % (0-2) 02/18/20 04:20 Absolute Neuts (auto) 3.7 10^3/uL (1.7-8.2) 02/18/20 04:20 Absolute Lymphs (auto) 2.9 10^3/uL (0.5-4.7) 02/18/20 04:20 Absolute Monos (auto) 0.8 10^3/uL (0.1-1.4) 02/18/20 04:20 Absolute Eos (auto) 0.0 10^3/uL (0.0-0.6) 02/18/20 04:20 Absolute Basos (auto) 0.0 10^3/uL (0.0-0.2) 02/18/20 04:20 Seg Neutrophils % 49.9 % (42-78) 02/18/20 04:20 PT 12.9 SEC (11.4-15.4) 02/10/20 18:07 INR 0.95 02/10/20 18:07 APTT 30.6 SEC (23.5-35.8) 02/10/20 18:07 Fibrinogen 589 mg/dL (209-497) H 02/10/20 18:07 D-Dimer 0.57 ug/mL (0.00-0.50) H 02/10/20 18:07 Carbonic Acid 1.42 mmol/L (1.05-1.35) H 02/10/20 13:00 HCO3/H2CO3 Ratio 19:1 02/10/20 13:00 ABG pH 7.38 (7.35-7.45) 02/10/20 13:00 ABG pCO2 47.1 mmHg (35-45) H 02/10/20 13:00 ABG pO2 63.5 mmHg (80-100) L 02/10/20 13:00 ABG HCO3 27.2 mmol/L (20-24) H 02/10/20 13:00 ABG Total CO2 28.7 mmol/L (21-25) H 02/10/20 13:00 ABG O2 Saturation 91.7 % (94-98) L 02/10/20 13:00 ABG Base Excess 1.5 mmol/L 02/10/20 13:00 FiO2 ROOM AIR 02/10/20 13:00 Sodium 143.3 mmol/L (137-145) 02/18/20 04:20 Potassium 4.0 mmol/L (3.6-5.0) 02/18/20 04:20 Chloride 106 mmol/L (98-107) 02/18/20 04:20 Carbon Dioxide 32 mmol/L (22-30) H 02/18/20 04:20 Anion Gap 5 (5-19) 02/18/20 04:20 BUN 32 mg/dL (7-20) H 02/18/20 04:20 Creatinine 1.05 mg/dL (0.52-1.25) 02/18/20 04:20 Est GFR ( Amer) > 60 (>60) 02/18/20 04:20 Est GFR (MDRD) Non-Af 52 (>60) L 02/18/20 04:20 Glucose 124 mg/dL (75-110) H 02/18/20 04:20 Calcium 9.7 mg/dL (8.4-10.2) 02/18/20 04:20 Ferritin 11.30 ng/mL (11.1-264.0) 02/10/20 18:07 Total Bilirubin 0.6 mg/dL (0.2-1.3) 02/18/20 04:20 Direct Bilirubin 0.2 mg/dL (0.0-0.4) 02/18/20 04:20 Neonat Total Bilirubin Not Reportable 02/18/20 04:20 Neonat Direct Bilirubin Not Reportable 02/18/20 04:20 Neonat Indirect Bili Not Reportable 02/18/20 04:20 AST 40 U/L (14-36) H 02/18/20 04:20 ALT 40 U/L (<35) H 02/18/20 04:20 Alkaline Phosphatase 63 U/L (38-126) 02/18/20 04:20 Lactate Dehydrogenase 227 U/L (120-246) 02/10/20 18:07 Creatine Kinase 200 U/L (30-135) H 02/18/20 04:20 Troponin I < 0.012 ng/mL 02/10/20 18:07 C-Reactive Protein < 5.0 mg/L (<10.0) 02/10/20 18:07 NT-Pro-B Natriuret Pep 55 pg/mL (<125) 02/10/20 11:57 Total Protein 7.1 g/dL (6.3-8.2) 02/18/20 04:20 Albumin 4.0 g/dL (3.5-5.0) 02/18/20 04:20 COVID-19 Source See comment 02/10/20 21:05 COVID-19 (VLADIMIR) DETECTED (Not Detect) A 02/10/20 21:05 Influenza A (Rapid) NEGATIVE (NEGATIVE) 02/10/20 21:05 Influenza B (Rapid) NEGATIVE (NEGATIVE) 02/10/20 21:05 Group A Strep Rapid NEGATIVE (NEGATIVE) 02/10/20 21:05 02/10/20 02/10/20 11:57 18:07 Troponin I < 0.012 NT-Pro-B Natriuret Pep 55 Impressions: Chest X-Ray 02/10/20 11:05 IMPRESSION: Cardiomegaly. No other significant findings. Chest CT 02/11/20 00:00 IMPRESSION: 1. Borderline main pulmonary artery/pulmonary hypertension. Borderline ascending aortic aneurysm. Calcifications of the aortic annulus. Suspicious for aortic valve disease. 2. Cardiomegaly mainly left heart. 3. Reduced lung volumes bilaterally worse compared to previous study. Mild vascular congestion without overt acute infiltrate. 4. Atherosclerotic branches of the abdominal aorta with suspected stenosis. 5. Gallstones without acute biliary dilatation. 6. Mild diffuse enlargement of thyroid gland unchanged. Stroke Is this a Stroke Patient?: No Acute Heart Failure Is this a Heart Failure Patient?: No
== END 2020-02-18 16:36 | DRG 177 ==
LOC: ER 10:45 → EH 15:43 → 3N 22:39
PROVIDERS: ADMIT Internal Medicine; ATTEND Internal Medicine
PROC: XW033E5 Introduction of Remdesivir Anti-infective into Peripheral Vein, Percutaneous Approach, New Technology Group 5 (ICD-10-PCS; principal; 2020-02-11)
DX: U07.1 COVID-19 (principal); J96.01 Acute respiratory failure with hypoxia; J12.89 Other viral pneumonia; J44.0 Chronic obstructive pulmonary disease with (acute) lower respiratory infection; Z68.43 Body mass index [BMI] 50.0-59.9, adult; I69.351 Hemiplegia and hemiparesis following cerebral infarction affecting right dominant side; J44.1 Chronic obstructive pulmonary disease with (acute) exacerbation; N17.9 Acute kidney failure, unspecified; E87.6 Hypokalemia; Z79.899 Other long term (current) drug therapy; Z88.8 Allergy status to other drugs, medicaments and biological substances; Z88.6 Allergy status to analgesic agent; E66.01 Morbid (severe) obesity due to excess calories; Z74.01 Bed confinement status; E78.5 Hyperlipidemia, unspecified; I10 Essential (primary) hypertension; K21.9 Gastro-esophageal reflux disease without esophagitis; F31.9 Bipolar disorder, unspecified; F03.90 Unspecified dementia, unspecified severity, without behavioral disturbance, psychotic disturbance, mood disturbance, and anxiety; Z82.3 Family history of stroke; Z82.61 Family history of arthritis; Z83.3 Family history of diabetes mellitus; Z79.01 Long term (current) use of anticoagulants
CPT/HCPCS: 36415; 36600; 71045; 71250; 80053; 82550; 82728; 82803; 83615; 83880; 84484; 85025; 85379; 85384; 85610; 85730; 86140; 87040; 87070; 87635; 87804; 87880; 93005; 93010; 96374; 99285; C9803; J1100; J1650; J3480; J3490; J7050; J7120